=== PATIENT | female | born 1935 | race Caucasian/White ===

== ENCOUNTER 2016-06-15 10:31 | Inpatient (IN) ==
[2016-06-15] MEDS ORDERED: FUROSEMIDE 40 MG/4 ML VIAL IV STA (10:46)
[2016-06-15] MEDS ORDERED: FUROSEMIDE 100 MG/10 ML VIAL ONE (10:47)
[2016-06-15] MEDS ORDERED: ALBUTEROL/IPRATROPIUM 3 ML NEB RESP TX STA (10:47)
--- NOTE | 2016-06-15 10:51 | EKG Report ---
Stationary ECG Study [facility] Test Date: 06/15/2016 10:41:26 AM Pat Name: MINO KRISHNAN Department: Room: Gender: F Computer Technical Support Specialist: : [id number] Requested by: Gerald Burrows Order Number: [id number] Reading MD: FÉLIX BURNS Intervals [place] Rate: 103 P: 87 DE: 182 QRS: -3 QRSD: 86 T: 71 QT: 343 QTc: 403 Interpretive Statements SINUS TACHYCARDIA WITH FREQUENT SUPRAVENTRICULAR PREMATURE COMPLEXES POOR R-WAVE PROGRESSION Electronically Signed On 06-15-16 19:57:17 CDT by FÉLIX BURNS [email or web address]
[2016-06-15 10:57] LABS: Basophils # 0.1 10*3/uL (0.0-0.2); Basophils % 0.3 % (0.0-0.8); Eosinophils # 0.1 10*3/uL (0.0-0.87); Eosinophils % 0.4 % (0.00-10.9); Hematocrit 40.7 VOL% (35.7-47.0); Hemoglobin 13.9 GM/DL (12.0-16.0); Immature Granulocytes % 0.5 %; Immature Granulocytes Absolute 0.08 #; Lymphocytes # 0.8 10*3/uL (1.4-4.0); Mean Corpuscular HGB Conc 34.2 GM/DL (32-36); Mean Corpuscular Hemoglobin 31 PG (27-34); Mean Corpuscular Volume 90.6 FL (87-102); Mean Platelet Volume 8.7 FL (9.6-12.0); Monocytes # 0.8 10*3/uL (0.11-0.8); Monocytes % 5.2 % (1.7-12.7); Neutrophils # 14.2 10*3/uL (1.4-7.4); Neutrophils % 88.6 % (38.7-73.9); Platelet Count 281 T/CUMM (130-400); Red Blood Count 4.49 MC/CUMM (3.8-5.5); Red Cell Distribution Width 12.7 % (9.3-17.3); White Blood Count 16.1 T/CUMM (4-12)
[2016-06-15 11:09] LABS: D-Dimer 0.9 MG/L FEU; INR 1.7; PT Patient Result 18.7 SECS
--- NOTE | 2016-06-15 11:11 | XRay Report ---
Exam: XR chest 1V portable Indication: Shortness of breath Comparison study: None Findings: Cardiac silhouette is mildly enlarged. Mediastinal contours appear within normal limits. Lungs are mildly hyperexpanded with diffuse interstitial prominence suggestive of a degree of underlying interstitial scarring. There is no pneumothorax or significant pleural effusion. There are right bibasilar opacities, which are nonspecific but may represent atelectasis although developing infectious/inflammatory infiltrates cannot be excluded. There is no acute osseous abnormality. Impression: Findings suggestive of underlying COPD changes with mild cardiomegaly. Basilar opacities may represent atelectasis or scarring although developing infectious/inflammatory infiltrates cannot be excluded. PROCEDURE INTERPRETED AT [facility] DEPARTMENT OF RADIOLOGY Final Report Signed by: Tommie Peacock
[2016-06-15 11:33] LABS: Alanine Aminotransferase 20 U/L (13-56); Albumin 3.6 G/DL (3.4-5.0); Alkaline Phosphatase 134 U/L (45-117); Aspartate Amino Transferase 25 U/L (0-37); Blood Urea Nitrogen 27 MG/DL (7-18); Calcium 9.1 MG/DL (8.5-10.1); Glucose 132 MG/DL (74-106); Magnesium 1.8 MG/DL (1.8-2.4); Potassium 4.2 MMOL/L (3.5-5.1); Sodium 136 MMOL/L (136-145); Total Protein 7.6 G/DL (6.4-8.3); Troponin I Only < 0.015 NG/ML (0.00-0.045)
[2016-06-15] MEDS ORDERED: LEVOFLOXACIN INJ 500 MG in PREMIX 1 EACH IV STA (11:33)
--- NOTE | 2016-06-15 11:40 | Emergency Department Note ---
Jacquelyn Montalvo Emily, am scribing for, and in the presence of, Gerald Roman MD 10:51. Abel Montalvo Phillip K, MD, personally performed the services described in this documentation, ascribed by Manda Valladares in my presence, and it is both accurate and complete . Arrival - Arrival Chief Complaint: Shortness of Breath Stated Complaint: respiratory distress, new onset CHF ED Nursing Triage Note: Patient transferred from [facility] with respiratory distress and new onset CHF. Her oxygenation was 60% on EMS arrival on 15liters with use of accessory muscles. She was placed on a Cpap with current oxygenation 93%. She reports waking up at 0600 this morning with shortness of breath, nausea, but without chest pain Mode of Arrival: Stretcher Limitations: Physical Limitation Source: Patient, EMS, RN Notes Reviewed - History of Present Illness HPI Narrative: Pt is a 80 y/o female who was transferred from [facility] for further evaluation of SOB that started acutely at 2am today. Pt has associated sxs of cough and nausea but no chest or abdomen pain. Upon arrival of EMS, pt was at O2 sat of 60 and given nitro en route with improvement to 97 sat. Pt in ED is at 93-94 O2 sat with face mask. Pt has been at [facility] for [address] Bazan in [place], [place], as PCP. Pt is taking Coumadin, Plavix and 80 mg of Lasix. Pt was dx with new onset of CHF at halfway. Onset (ago): hour(s) Consistency: constant Severity: moderate, severe Severity scale (1-10): 9 Quality: fullness Allergies/Adverse Reactions: Allergies Allergy/AdvReac Type Severity Reaction Status Date / Time No Known Allergies Allergy Unverified 06/15/16 10:44 Review of System - Review of System 12 point system: reviewed and no additional remarkable complaints except as stated - Review of System Constitutional: Absent: fever Respiratory: Present: cough, respiratory distress (SOB), wheezing Cardiovascular: Absent: chest pain Gastrointestinal: Absent: abdominal pain, nausea, vomiting Skin: Absent: rash Neurological: Absent: headache Medical,Surgical,& Family Hx - Social History Smoking Status: Never smoker Frequency of Alcohol Use: None Type of Drug Use: None Exam Vital Signs: Vital Signs Temperature 98.1 F 06/15/16 10:33 Pulse Rate 104 H 06/15/16 11:00 Respiratory Rate 19 06/15/16 11:00 Blood Pressure 166/70 06/15/16 11:00 O2 Sat by Pulse Oximetry 87 L 06/15/16 11:00 - General General appearance: alert, in no apparent distress - Head Head exam: Present: atraumatic, normocephalic - Eye Eye exam: Present: PERRL, EOMI - ENT ENT exam: Present: mucous membranes moist. Absent: mucous membranes dry - Neck Neck exam: Present: full ROM. Absent: tenderness - Chest Chest inspection: Present: symmetric chest wall rise. Absent: tenderness - Respiratory Respiratory exam: Present: accessory muscle use, prolonged expiratory phase, respiratory distress, wheezes (expiratory). Absent: normal lung sounds bilaterally - Cardiovascular Cardiovascular exam: Present: tachycardia, normal heart sounds - Abdominal Exam Abdominal exam: Present: soft. Absent: tenderness - Extremities Exam Extremities exam: Present: full ROM, pedal edema (trace bilaterally). Absent: tenderness - Neurological Exam Neurological exam: Present: alert, oriented X3, CN II-XII intact. Absent: motor sensory deficit - Psychiatric Psychiatric exam: Present: normal affect, normal mood - Skin Skin exam: Present: warm, dry, intact Results - Labs CBC & BMP: 06/15/16 10:44 06/15/16 10:44 Lab Results: I have reviewed the patients labs Labs: Laboratory Tests 06/15/16 10:44 WBC 16.1 H MPV 8.7 L Neut % (Auto) 88.6 H Lymph % (Auto) 5.0 L Neut # (Auto) 14.2 H Lymph # (Auto) 0.8 L - EKG EKG results: interpreted by RUFINOD (Sinus tachycardia) - Diagnostic Findings Procedure: Chest x-ray: report reviewed by me (Findings suggestive of underlying COPD changes with mild cardiomegaly. Basilar opacities may represent atelectasis or scarring although developing infectious/inflammatory infiltrates cannot be excluded.) Disposition Clinical Impression: Acute exacerbation of chronic obstructive airways disease, Pneumonia right base Case discussed with: patient Disposition: Still a Patient Condition: Guarded Additional Instructions: Admit to the hospitalist.
[2016-06-15 11:54] LABS: Pt O2 Delivery Device Venturi Mask
[2016-06-15 11:55] LABS: ABG Base Excess 5.4 MMOL/L (-2.5-2.5); ABG Oxygen Saturation 87.8 % (95-100); ABG PCO2 55.2 MM HG (35-48); ABG PH 7.381 (7.35-7.45); ABG PO2 55.7 MM HG (80-95); ABG TCO2 33.7 MMOL/L (23-27)
[2016-06-15] MEDS ORDERED: ALBUTEROL/IPRATROPIUM 3 ML NEB RESP TX PRN (12:26)
[2016-06-15] MEDS ORDERED: ACETAMINOPHEN 325 MG TABLET PO PRN (12:27)
[2016-06-15] MEDS ORDERED: DOCUSATE SODIUM 100 MG CAPSULE PO PRN (12:27)
[2016-06-15] MEDS ORDERED: LEVOFLOXACIN INJ 100 ML IV ONE (12:31)
--- NOTE | 2016-06-15 12:35 | Hospitalist History & Physical ---
<Sherly Sousada - Last Filed: 06/15/16 12:51> Assessment and Plan (1) Acute exacerbation of chronic obstructive airways disease Status: Acute Assessment and plan: We will admit; start inhaled bronchodiators and IV corticosteriods, start empiric antibiotics. Current Visit: Yes (2) Anticoagulant long-term use Status: Acute Assessment and plan: INR today 1.7; will re-check in AM. Current Visit: Yes (3) Pneumonia Status: Acute Assessment and plan: Will start empiric antibiotics and monitor. Current Visit: Yes Qualifiers: Pneumonia type: due to unspecified organism Laterality: right History of Present Illness Chief complaint: shortness of breath History of present illness: This a very pleasant 80 year old female that presented to the ED at [facility] per EMS from [facility] in [place]. The patient has a very extensive medical history of chronic obstructive pulmonary disease, pulmonary embolism, deep vein thrombosis, hypertensive chronic kidney disease stage I, chronic pain syndrome, and dysthymic disorder. At the time of ED presentation, she was noted to be in respiratory distress with oxygen saturations at 60% on non-rebreather mask. She was immediately placed on bi- pap. She reported the acute onset of shortness of breath around 0600 with nausea ; however denies chest pain. Labs were obtained at the time of ED presentation, which showed a marked increase in her WBC's 16.1; all other findings unremarkable. She is a life long anticoagulant user due to her history of thrombus formation; her INR was noted at 1.7. Cardiac enzymes were obtained with a troponin at <0.015 and D-dimer at 0.9. Chest radiograph suggestive of underlying COPD changes with mild cardiomegaly. Basilar opacities may represent atelectasis or scarring although developing infectious/inflammatory infiltrates cannot be excluded. After brief discussion with both Dr. Roman and Dr. Tejeda, the patient will be admitted to the hospitalist services for continuation of care. Home Medications Medication Instructions Recorded Confirmed Type Acetaminophen Tab [Tylenol Tab] 1,000 mg PO Q8HR PRN MDD 3GM/24HRS 06/15/1606/27 History Albuterol/Ipratropium Neb [Duoneb] 3 ml RESP TX RT Q6H PRN 06/15/16 06/15/16 History Baclofen [Baclofen] 10 mg PO BID 06/15/16 06/15/16 History Cholecalciferol (Vitamin D3) 2,000 unit PO 0900 06/15/16 06/15/16 History [Vitamin D3] Clopidogrel [Plavix] 75 mg PO DAILY 06/15/16 06/15/16 History Dimenhydrinate Solution 1 ml IJ Q4H PRN 06/15/16 06/15/16 History Docusate Sodium 100 mg PO BID 06/15/16 06/15/16 History Gabapentin [Gabapentin] 100 mg PO 2100 06/15/16 06/15/16 History Hydrocodone Bitartrate [Zohydro ER] 30 mg PO 0600,1800 06/15/16 06/15/16 History Losartan/Hydrochlorothiazide 1 each PO 0900 06/15/16 06/15/16 History [Losartan-Hctz 100-25 mg Tab] Mirtazapine [Mirtazapine] 15 mg PO QOTHER DAY 06/15/16 06/15/16 History Mirtazapine [Remeron] 30 mg PO QOTHER DAY 06/15/16 06/15/16 History Omeprazole [Prilosec] 20 mg PO DAILY 06/15/16 06/15/16 History Phenol 1.4% Throat [place] 2 - 3 spray PO Q2H PRN 06/15/16 06/15/16 History [Chloraseptic [place]] Polyethylene Glycol Powder 8.5 gm PO 0900 06/15/16 06/15/16 History [Miralax] Polyvinyl Alcohol 1.4% Oph Amber 1 drop BOTH EYES TID 06/15/16 06/15/16 History [Artificial Tears Oph Soln] Potassium Chloride Cap/Tab [K Dur] 20 meq PO DAILY 06/15/16 06/15/16 History Pravastatin [Pravachol] 40 mg PO DAILY 06/15/16 06/15/16 History Tiotropium Inhalation [Spiriva 18 mcg INH DAILY 06/15/16 06/15/16 History Handihaler] Warfarin Sodium [Warfarin Sodium] 3 mg PO 2100 06/15/16 06/15/16 History clonazePAM [Clonazepam] 0.5 mg PO BID 06/15/16 06/15/16 History dilTIAZem HCl [Diltiazem ER] 240 mg PO 0900 06/15/16 06/15/16 History dimenhyDRINATE [Dramamine Chew Tab] 50 mg PO Q4H PRN 06/15/16 06/15/16 History diphenhydrAMINE HCl 50 mg PO Q6H PRN 06/15/16 06/15/16 History [diphenhydrAMINE Cap] guaiFENesin [Cough Syrup] 100 mg PO QID PRN 06/15/16 06/15/16 History Allergies Allergy/AdvReac Type Severity Reaction Status Date / Time No Known Allergies Allergy Unverified 06/15/16 10:44 Medical,Surgical,& Family Hx - Medical History Psychological: History of: Psychiatric Problems (Dysthymic disorder) Respiratory: History of: COPD, Pulmonary Embolism, Pneumonia, Respiratory Problems Musculoskeletal: History of: Musculoskeletal Problems (wheelchair dependent) - Social History Smoking Status: Never smoker Frequency of Alcohol Use: None Type of Drug Use: None Marital Status: Single Lives With:: SNF Functional capacity: wheelchair bound 12 point system: reviewed and no additional remarkable complaints except as stated Exam - Constitutional Vitals: Period Temp Pulse Resp BP Sys/Maya Pulse Ox Last 24 Hr 98.1 F-98.1 F 97-107 18-24 148-166/70-73 40-93 General appearance: normal weight, mild distress - Head Head exam: Present: normal inspection, normocephalic, atraumatic - Eye Eye exam: Present: EOMI. Absent: conjunctival injection, nystagmus Pupils: Present: LISBET, normal accommodation - ENT ENT exam: Present: normal exam, normal external ear exam, normal oropharynx - Neck Neck exam: Present: normal inspection. Absent: lymphadenopathy, meningismus, tenderness, thyromegaly - Respiratory Respiratory exam: Present: accessory muscle use, wheezes - Cardiovascular Cardiovascular exam: Present: irregular rhythm, tachycardia. Absent: diastolic murmur, gallop, JVD, rubs, systolic murmur - GI/Abdominal GI/Abdominal exam: Present: normal bowel sounds, soft. Absent: firm, guarding, tenderness - Extremities Exam Extremities exam: Present: edema (trace edema) - Back Exam Back exam: Present: normal inspection - Neurological Exam Neurological exam: Present: alert, oriented X3 - Psychiatric Psychiatric exam: Present: normal affect, normal mood - Skin Skin exam: Present: normal color, warm, dry Results - Labs CBC & BMP: 06/15/16 10:44 06/15/16 10:44 Lab Results: I have reviewed the past 24 hour labs <Blaise Tejeda - Last Filed: 06/15/16 13:48> Assessment and Plan (1) Pneumonia Status: Acute Assessment and plan: Chest x-rays reviewed. I agree with assessment of pneumonia on this patient. The does appear to be right lower lobe infiltrate and also possibility of a lingular infiltrate given the disappearance of the left cardiac border on the chest x-ray. This patient is has COPD from the community. She also noted to have 4 creatinine of 1.671-[id number] lady. Based antibiotic to cover for gram- positive gram negatives from the community that are complicated COPD. I will put the patient on Zosyn 2.25 g IV every 6 hours azithromycin 500 mg IV daily for the next 4 days. Discontinue Levaquin. Per protocol this patient appears to have been assigned a bed and second is where would not be and therefore this patient to be seen by another provider starting tomorrow. Did ask for this patient be put on either 3 so for yeast but apparently logistics as I was informed did not allow for that. Current Visit: Yes Qualifiers: Pneumonia type: due to unspecified organism Laterality: right History of Present Illness History of present illness: Ms. Hoang is a 80 year old female Exam - Constitutional Vitals: Period Temp Pulse Resp BP Sys/Maya Pulse Ox Last 24 Hr 98.1 F-98.1 F 97-107 18-24 148-166/70-73 40-93 Results - Labs CBC & BMP: 06/15/16 10:44 06/15/16 10:44
[2016-06-15] MEDS: ENOXAPARIN 40 MG/0.4 ML SYRINGE SUBCUT SCH (12:45)
[2016-06-15 13:16] LABS: Risk Ratio 2.44; VLDL CHOLESTEROL 18.2 MG/DL
[2016-06-15 13:58] LABS: Apearance,Urine CLEAR (Clear); Bilirubin,Urine Negative (Negative); Blood, Urine Negative (Negative); Glucose,Urine (UA) Negative (Negative); Ketones,Urine Negative (Negative); Nitrite,Urine Negative (Negative); Protein,Urine Negative; RBC,Urine 1 /HPF (0-4); Urine Color Yellow (Yellow); Urine Specific Gravity 1.016 (1.001-1.035); Urine Urobilinogen < 2.0 EU/DL (0.2-1.0); WBC,Urine 1 /HPF (0-6)
[2016-06-15] MEDS: ALBUTEROL 2.5 MG/3 ML NEB RESP TX SCH ×2 (14:00→19:23)
[2016-06-15] MEDS: LEVOFLOXACIN INJ 750 MG in PREMIX 1 EACH IV SCH (14:47)
[2016-06-15] MEDS: POLYVINYL ALCOHOL 1.4% OPH SOLN 15 ML BOTTLE BOTH EYES SCH (21:51)
[2016-06-15] MEDS: WARFARIN 3 MG TABLET PO SCH (21:51)
[2016-06-15] MEDS: GABAPENTIN 100 MG CAPSULE PO SCH (21:51)
[2016-06-15] MEDS: clonazePAM 0.5 MG TABLET PO SCH (21:51)
[2016-06-16] MEDS: ALBUTEROL 2.5 MG/3 ML NEB RESP TX SCH ×7 (00:21→23:51)
[2016-06-16 06:12] LABS: Basophils % 0.2 % (0.0-0.8); Eosinophils # 0.2 10*3/uL (0.0-0.87); Eosinophils % 1.7 % (0.00-10.9); Hematocrit 35.6 VOL% (35.7-47.0); Hemoglobin 11.8 GM/DL (12.0-16.0); Immature Granulocytes % 0.4 %; Immature Granulocytes Absolute 0.04 #; Lymphocytes # 1.8 10*3/uL (1.4-4.0); Lymphocytes % 19.8 % (21.3-54.2); Mean Corpuscular HGB Conc 33.1 GM/DL (32-36); Mean Corpuscular Hemoglobin 30 PG (27-34); Mean Corpuscular Volume 91.8 FL (87-102); Mean Platelet Volume 8.9 FL (9.6-12.0); Monocytes # 0.9 10*3/uL (0.11-0.8); Monocytes % 9.6 % (1.7-12.7); Neutrophils # 6.1 10*3/uL (1.4-7.4); Neutrophils % 68.3 % (38.7-73.9); Platelet Count 223 T/CUMM (130-400); Red Blood Count 3.88 MC/CUMM (3.8-5.5); Red Cell Distribution Width 12.9 % (9.3-17.3); White Blood Count 8.9 T/CUMM (4-12)
[2016-06-16 07:05] LABS: Albumin 2.8 G/DL (3.4-5.0); Bilirubin,Total 0.9 MG/DL (0.2-1.0); Calcium 8.5 MG/DL (8.5-10.1); Magnesium 1.9 MG/DL (1.8-2.4); Osmolality,Calculated 280.7 MOS/KG (273-304); Potassium 3.5 MMOL/L (3.5-5.1); Thyroid Stimulating Hormone 1.15 uIU/ml (0.358-3.74); Total Protein 6.2 G/DL (6.4-8.3)
[2016-06-16] MEDS: PANTOPRAZOLE 40 MG TABLET PO SCH (09:07)
[2016-06-16] MEDS: clonazePAM 0.5 MG TABLET PO SCH ×2 (09:08→21:17)
[2016-06-16] MEDS: POLYVINYL ALCOHOL 1.4% OPH SOLN 15 ML BOTTLE BOTH EYES SCH ×3 (09:08→21:17)
--- NOTE | 2016-06-16 09:27 | XRay Report ---
Referring Physician: MILO Sousa Exam: XR chest 1V portable Date: June 16, 2016 at 6:10 AM Reason: Shortness of breath Comparison: Chest one view portable June 15, 2016 Findings: The cardiac silhouette is again mildly enlarged, and there is scattered calcified plaque at the thoracic aorta. There are scattered opacities within both lungs, mainly within the lower lung zones. This is concerning for pulmonary edema, atelectasis and likely scarring. However, there could also be pneumonia, particularly within the lower lung zones. No pneumothorax is identified, but there may be minimal left pleural fluid. The osseous structures appear stable. Impression: There has been no significant change. PROCEDURE INTERPRETED AT [facility] DEPARTMENT OF RADIOLOGY Final Report Signed by: Dr. Ayaan Cr
[2016-06-16] MEDS: ENOXAPARIN 40 MG/0.4 ML SYRINGE SUBCUT SCH (11:55)
--- NOTE | 2016-06-16 12:01 | Hospitalist Progress Note ---
Assessment and Plan (1) Pneumonia Status: Acute Assessment and plan: Chest x-rays reviewed. I agree with assessment of pneumonia on this patient. The does appear to be right lower lobe infiltrate and also possibility of a lingular infiltrate given the disappearance of the left cardiac border on the chest x-ray. This patient is has COPD from the community. She also noted to have 4 creatinine of 1.975-zqeg-vba lady. Based antibiotic to cover for gram- positive gram negatives from the community that are complicated COPD. I will put the patient on Zosyn 2.25 g IV every 6 hours azithromycin 500 mg IV daily for the next 4 days. Discontinue Levaquin. Per protocol this patient appears to have been assigned a bed and second is where would not be and therefore this patient to be seen by another provider starting tomorrow. Did ask for this patient be put on either 3 so for yeast but apparently logistics as I was informed did not allow for that. Current Visit: Yes Qualifiers: Pneumonia type: due to unspecified organism Laterality: bilateral Lung location: lower lobe of lung Qualified Code(s): J18.9 - Pneumonia, unspecified organism Hospitalist: Subjective Interval history: Patient has been seen interviewed and examined chart has been reviewed. She is coughing less and less expectoration today. Immediately yesterday with acute exacerbation of COPD most likely lower respiratory bacterial infection. Noted chills at home but no documented fever she has been afebrile here Exam - Constitutional Vitals: Period Temp Pulse Resp BP Sys/Maya Pulse Ox Last 24 Hr 97.4 F-98.5 F 55-103 15-24 112-151/53-73 89-94 General appearance: over weight - Head Head exam: Present: normocephalic, atraumatic - Eye Eye exam: Present: EOMI Pupils: Present: LISBET - ENT ENT exam: Present: normal oropharynx - Neck Neck exam: Present: normal inspection - Respiratory Respiratory exam: Present: clear to auscultation bilaterally - Cardiovascular Cardiovascular exam: Present: regular rate and rhythm - GI/Abdominal GI/Abdominal exam: Present: normal bowel sounds, soft - Extremities Exam Extremities exam: Present: full ROM - Neurological Exam Neurological exam: Present: alert, oriented X3, CN II-XII intact - Psychiatric Psychiatric exam: Present: normal affect, normal mood - Skin Skin exam: Present: normal color, warm, dry Results - Labs CBC & BMP: 06/16/16 05:46 06/16/16 05:46 Lab Results: I have reviewed the past 24 hour labs
[2016-06-16] MEDS: hydroCHLOROthiazide 12.5 MG CAPSULE PO SCH (13:21)
[2016-06-16] MEDS: DILTIAZEM CD 240 MG CAPSULE PO SCH (13:21)
[2016-06-16] MEDS: WARFARIN 3 MG TABLET PO SCH (17:07)
[2016-06-16] MEDS ORDERED: WARFARIN 3 MG TABLET PO SCH (21:00)
[2016-06-16] MEDS: GABAPENTIN 100 MG CAPSULE PO SCH (21:17)
[2016-06-17] MEDS: ONDANSETRON 4 MG/2 ML VIAL IV PRN ×5 (00:36→21:36)
[2016-06-17] MEDS: ALBUTEROL 2.5 MG/3 ML NEB RESP TX SCH ×5 (03:06→19:17)
[2016-06-17] MEDS ORDERED: ONDANSETRON 4 MG/2 ML VIAL IV ONE (08:30)
--- NOTE | 2016-06-17 08:30 | Hospitalist Progress Note ---
Assessment and Plan (1) Pneumonia Status: Acute Assessment and plan: Chest x-rays reviewed. I agree with assessment of pneumonia on this patient. The does appear to be right lower lobe infiltrate and also possibility of a lingular infiltrate given the disappearance of the left cardiac border on the chest x-ray. This patient is has COPD from the community. She also noted to have 4 creatinine of 1.678-zjwk-mzi lady. Based antibiotic to cover for gram- positive gram negatives from the community that are complicated COPD. I will put the patient on Zosyn 2.25 g IV every 6 hours azithromycin 500 mg IV daily for the next 4 days. Discontinue Levaquin. Per protocol this patient appears to have been assigned a bed and second is where would not be and therefore this patient to be seen by another provider starting tomorrow. Did ask for this patient be put on either 3 so for yeast but apparently logistics as I was informed did not allow for that. Current Visit: Yes Qualifiers: Pneumonia type: due to unspecified organism Laterality: bilateral Lung location: lower lobe of lung Qualified Code(s): J18.9 - Pneumonia, unspecified organism (2) Abdominal pain Status: Acute Assessment and plan: Cause is unknown at this point patient has sinus rhythm on EKG. Will check a KUB because of infrequency of bowel sounds possibly this is areas of the head of obstruction of the bowel. Is associated with nausea. Patient reports of vomiting overnight. Give Zofran and extra dose now is 1 given at 530. Current Visit: Yes (3) Nausea Status: Acute Assessment and plan: Use antiemetics as ordered Current Visit: Yes Hospitalist: Subjective Interval history: Patient has been seen interviewed and examined and chart has been reviewed. Is complaining of being sick this morning complaining of nausea and generalized abdominal pain. She has had bowel movement in the last 24 hours normal no diarrhea no documented fever. She is admitted to the hospital with acute exacerbation of COPD possible pneumonia bibasilar patchy infiltrates. History of long-term anticoagulation INR was subtherapeutic on last check will repeat another one today. We will also repeat CBC and BMP and magnesium. Exam - Constitutional Vitals: Period Temp Pulse Resp BP Sys/Maya Pulse Ox Last 24 Hr 97.1 F-98 F 68-103 16-24 147-159/61-73 88-99 General appearance: other (Obesity BMI of 34.3) - Head Head exam: Present: normocephalic, atraumatic - Eye Eye exam: Present: EOMI, other (Anicteric sclera no conjunctival petechia) Pupils: Present: LISBET - ENT ENT exam: Present: normal exam, normal oropharynx - Neck Neck exam: Present: normal inspection - Respiratory Respiratory exam: Present: clear to auscultation bilaterally, other (No wheezing no rales) - Cardiovascular Cardiovascular exam: Present: regular rate and rhythm - GI/Abdominal GI/Abdominal exam: Present: normal bowel sounds, soft, other (Tender to palpation diffusely though bowel sounds present but infrequent) - Psychiatric Psychiatric exam: Present: normal mood, other (Subdued affect) - Skin Skin exam: Present: normal color, warm Results - Labs CBC & BMP: 06/16/16 05:46 06/16/16 05:46 Lab Results: I have reviewed the past 24 hour labs (Today's labs are pending including an INR)
[2016-06-17 08:40] LABS: Basophils % 0.2 % (0.0-0.8); Eosinophils % 0.3 % (0.00-10.9); Hematocrit 38.6 VOL% (35.7-47.0); Hemoglobin 13.5 GM/DL (12.0-16.0); Immature Granulocytes % 0.3 %; Immature Granulocytes Absolute 0.03 #; Lymphocytes # 1.5 10*3/uL (1.4-4.0); Lymphocytes % 16.5 % (21.3-54.2); Mean Corpuscular Hemoglobin 31 PG (27-34); Mean Corpuscular Volume 87.1 FL (87-102); Mean Platelet Volume 8.9 FL (9.6-12.0); Monocytes # 0.6 10*3/uL (0.11-0.8); Monocytes % 6.7 % (1.7-12.7); Neutrophils # 6.7 10*3/uL (1.4-7.4); Platelet Count 273 T/CUMM (130-400); Red Blood Count 4.43 MC/CUMM (3.8-5.5); Red Cell Distribution Width 12.8 % (9.3-17.3); White Blood Count 8.8 T/CUMM (4-12)
[2016-06-17 08:44] LABS: INR 1.6; PT Patient Result 17.2 SECS
[2016-06-17] MEDS: DILTIAZEM CD 240 MG CAPSULE PO SCH (09:00)
[2016-06-17] MEDS: PANTOPRAZOLE 40 MG TABLET PO SCH (09:00)
[2016-06-17] MEDS: LOSARTAN 50 MG TABLET PO SCH (09:00)
[2016-06-17] MEDS: clonazePAM 0.5 MG TABLET PO SCH ×2 (09:00→20:33)
[2016-06-17] MEDS: hydroCHLOROthiazide 12.5 MG CAPSULE PO SCH (09:00)
[2016-06-17] MEDS: POLYVINYL ALCOHOL 1.4% OPH SOLN 15 ML BOTTLE BOTH EYES SCH ×3 (09:01→20:34)
[2016-06-17 11:34] LABS: Calcium 9.3 MG/DL (8.5-10.1); Magnesium 2.1 MG/DL (1.8-2.4)
--- NOTE | 2016-06-17 12:02 | XRay Report ---
Referring Physician: Blaise Tejeda MD Exam: XR KUB Date: June 17, 2016 at 11:07 AM Reason: Distended tender abdomen Comparison: None Findings: The stomach is distended with air, but the remaining bowel is nondistended. There is mild air within the rectum. No free air is identified. The renal shadows are largely obscured. There is multilevel degenerative change at the spine and scattered degenerative change at the pelvis. However, no acute osseous process is seen. Prominent scattered arterial calcification is noted. Impression: There is gaseous distention of the stomach. The remaining bowel is nondistended, and there is mild air within the rectum. This could represent gastric outlet obstruction or gastroparesis. Follow-up would be helpful. PROCEDURE INTERPRETED AT [facility] DEPARTMENT OF RADIOLOGY Final Report Signed by: Dr. Ayaan Cr
[2016-06-17] MEDS: ENOXAPARIN 40 MG/0.4 ML SYRINGE SUBCUT SCH (12:26)
[2016-06-17] MEDS: LEVOFLOXACIN INJ 750 MG in PREMIX 1 EACH IV SCH (15:20)
[2016-06-17] MEDS: WARFARIN 3 MG TABLET PO SCH (17:30)
[2016-06-17] MEDS: GABAPENTIN 100 MG CAPSULE PO SCH (20:33)
[2016-06-18] MEDS: ALBUTEROL 2.5 MG/3 ML NEB RESP TX SCH ×5 (00:18→14:33)
[2016-06-18] MEDS: ONDANSETRON 4 MG/2 ML VIAL IV PRN (01:14)
[2016-06-18] MEDS: traZODone 50 MG TABLET PO PRN (01:14)
[2016-06-18] MEDS: POLYETHYLENE GLYCOL POWDER 17 GM PACK PO SCH (08:19)
[2016-06-18] MEDS: hydroCHLOROthiazide 12.5 MG CAPSULE PO SCH (08:20)
[2016-06-18] MEDS: clonazePAM 0.5 MG TABLET PO SCH ×2 (08:20→20:00)
[2016-06-18] MEDS: PANTOPRAZOLE 40 MG TABLET PO SCH (08:20)
[2016-06-18] MEDS: LOSARTAN 50 MG TABLET PO SCH (08:20)
[2016-06-18] MEDS: DILTIAZEM CD 240 MG CAPSULE PO SCH (08:21)
[2016-06-18] MEDS: ENOXAPARIN 40 MG/0.4 ML SYRINGE SUBCUT SCH (08:23)
[2016-06-18] MEDS: POLYVINYL ALCOHOL 1.4% OPH SOLN 15 ML BOTTLE BOTH EYES SCH ×3 (08:29→22:15)
[2016-06-18] MEDS: PROMETHAZINE INJ 12.5 MG in SODIUM CHLORIDE 0.9% 50 ML IV PRN ×2 (11:54→18:03)
--- NOTE | 2016-06-18 12:01 | Gastrointestinal Consult Note ---
<Maria Elena Shelton - Last Filed: 06/18/16 11:59> Assessment and Plan (1) Nausea Status: Acute Assessment and plan: 06/18-Sudden onset of nausea, intractable vomiting with mid abdominal pain. No coffee ground/hematemesis. KUB shows gaseous distention of stomach, nondistended bowel. Last endoscopy years prior in [place], unable to recall findings. Will continue to monitor and plan tentative EGD when respiratory status improves if symptoms persist. Plan and addendum to follow by DR Lima. Current Visit: Yes History of Present Illness Chief complaint: Nausea, vomiting History of present illness: Ms. Hoang is a 80 year old female who presented to the ER with onset of cough and congestion. Pt is a resident at [facility]. She presented to the ER on 06/15 with cough, congestion and SOB. Pt was found at that time to have leukocytosis with pneumonia and began treatment for this. She is noted to currently be on Coumadin and Plavix, with history of PE and DVT, however Plavix is being held at this time and Lovenox has been initiated. Pt has a history also of COPD, CKD, and chronic pain syndrome. Pt states that a couple of days ago she had an onset of nausea and began on yesterday with episodes of vomiting. She states that she had intractable vomiting throughout the night. No reports of coffee ground or hematemesis with this. She states that she is also having some mid umbilical pain as well as some soreness across her upper abdomen. She denies any known history of peptic ulcer disease in the past. She denies any melena or hematochezia. She states that she had her gallbladder removed 10 years ago and denies history of gallstones. Most of her medical care at that time was done in [place]. She denies NSAID use as well. She denies recent weight loss, fever or chills. States her last endoscopy was done as well in [place] however unable to recall weekend and what the findings were. She continues to complain today of intractable nausea and has Phenergan infusion ordered every 6 hours. KUB shows gaseous distention of the stomach with nondistended bowel with possible representation for gastric outlet obstruction or gastroparesis. She does complain of some dysphagia to solids and pills at times however denies odynophagia. She is unable to recall if she has had esophageal dilation in the past. Patient is not diabetic. She is currently on Levaquin IV and Protonix p.o. has been ordered daily. Home Medications Medication Instructions Recorded Confirmed Type Acetaminophen Tab [Tylenol Tab] 1,000 mg PO Q8HR PRN MDD 3GM/24HRS 06/15/1606/27 History Albuterol/Ipratropium Neb [Duoneb] 3 ml RESP TX RT Q6H PRN 06/15/16 06/15/16 History Baclofen [Baclofen] 10 mg PO BID 06/15/16 06/15/16 History Cholecalciferol (Vitamin D3) 2,000 unit PO 0900 06/15/16 06/15/16 History [Vitamin D3] Clopidogrel [Plavix] 75 mg PO DAILY 06/15/16 06/15/16 History Dimenhydrinate Solution 1 ml IJ Q4H PRN 06/15/16 06/15/16 History Docusate Sodium 100 mg PO BID 06/15/16 06/15/16 History Gabapentin [Gabapentin] 100 mg PO 2100 06/15/16 06/15/16 History Hydrocodone Bitartrate [Zohydro ER] 30 mg PO 0600,1800 06/15/16 06/15/16 History Losartan/Hydrochlorothiazide 1 each PO 0900 06/15/16 06/15/16 History [Losartan-Hctz 100-25 mg Tab] Mirtazapine [Mirtazapine] 15 mg PO QOTHER DAY 06/15/16 06/15/16 History Mirtazapine [Remeron] 30 mg PO QOTHER DAY 06/15/16 06/15/16 History Omeprazole [Prilosec] 20 mg PO DAILY 06/15/16 06/15/16 History Phenol 1.4% Throat [place] 2 - 3 spray PO Q2H PRN 06/15/16 06/15/16 History [Chloraseptic [place]] Polyethylene Glycol Powder 8.5 gm PO 0900 06/15/16 06/15/16 History [Miralax] Polyvinyl Alcohol 1.4% Oph Amber 1 drop BOTH EYES TID 06/15/16 06/15/16 History [Artificial Tears Oph Soln] Potassium Chloride Cap/Tab [K Dur] 20 meq PO DAILY 06/15/16 06/15/16 History Pravastatin [Pravachol] 40 mg PO DAILY 06/15/16 06/15/16 History Tiotropium Inhalation [Spiriva 18 mcg INH DAILY 06/15/16 06/15/16 History Handihaler] Warfarin Sodium [Warfarin Sodium] 3 mg PO 2100 06/15/16 06/15/16 History clonazePAM [Clonazepam] 0.5 mg PO BID 06/15/16 06/15/16 History dilTIAZem HCl [Diltiazem ER] 240 mg PO 0900 06/15/16 06/15/16 History dimenhyDRINATE [Dramamine Chew Tab] 50 mg PO Q4H PRN 06/15/16 06/15/16 History diphenhydrAMINE HCl 50 mg PO Q6H PRN 06/15/16 06/15/16 History [diphenhydrAMINE Cap] guaiFENesin [Cough Syrup] 100 mg PO QID PRN 06/15/16 06/15/16 History Allergies Allergy/AdvReac Type Severity Reaction Status Date / Time No Known Allergies Allergy Unverified 06/15/16 10:44 Medical,Surgical,& Family Hx - Medical History Cardio: History of: Hypertension, [place] Psychological: History of: Psychiatric Problems (Dysthymic disorder) HEENT: History of: Ear Problem (hard of hearing) Respiratory: History of: COPD, Pulmonary Embolism, Pneumonia, Respiratory Problems Renal: History of: Renal Failure Gastrointestinal: History of: Diverticulitis/ Diverticulosis Musculoskeletal: History of: Musculoskeletal Problems (wheelchair dependent) - Social History Smoking Status: Never smoker Frequency of Alcohol Use: None Type of Drug Use: None 12 point system: reviewed and no additional remarkable complaints except as stated - Constitutional Constitutional: Present: as per HPI - EENT Eyes: Present: as per HPI Ears: Present: as per HPI Nose, mouth and throat: Present: as per HPI - Cardiovascular Cardiovascular: Present: as per HPI - Respiratory Respiratory: Present: as per HPI - Gastrointestinal Gastrointestinal: Present: as per HPI, abdominal pain, nausea, vomiting - Genitourinary Genitourinary: Present: as per HPI - Musculoskeletal Musculoskeletal: Present: as per HPI - Neurological Neurological: Present: as per HPI - Psychiatric Psychiatric: Present: as per HPI - Endocrine Endocrine: Present: as per HPI - Hematologic/Lymphatic Hematologic/Lymphatic: Present: as per HPI Exam - Constitutional Vitals: Period Temp Pulse Resp BP Sys/Maya Pulse Ox Last 24 Hr 97.3 F-98.4 F 83-94 18-20 101-177/55-99 89-95 General appearance: normal weight, no acute distress - Head Head exam: Present: normal inspection, normocephalic - Eye Eye exam: Present: other (lids and conjunctiva unremarkable). Absent: scleral icterus - ENT ENT exam: Present: normal exam, normal oropharynx - Neck Neck exam: Present: normal inspection - Respiratory Respiratory exam: Present: clear to auscultation bilaterally. Absent: rales, rhonchi, wheezes - Cardiovascular Cardiovascular exam: Present: regular rate and rhythm. Absent: diastolic murmur , JVD, systolic murmur - GI/Abdominal GI/Abdominal exam: Present: normal bowel sounds, tenderness, soft. Absent: ascites, distended, mass, organomegaly - Extremities Exam Extremities exam: Present: normal inspection, full ROM - Back Exam Back exam: Present: normal inspection - Neurological Exam Neurological exam: Present: alert, oriented X3 - Psychiatric Psychiatric exam: Present: normal affect, normal mood - Skin Skin exam: Present: normal color, warm, dry Results - Labs CBC & BMP: 06/17/16 08:23 06/17/16 08:23 Lab Results: I have reviewed the past 24 hour labs <Harish Lima - Last Filed: 06/18/16 18:20> History of Present Illness Chief complaint: 3030 History of present illness: Ms. Hoang is a 80 year old female Exam - Constitutional Vitals: Period Temp Pulse Resp BP Sys/Maya Pulse Ox Last 24 Hr 96.9 F-98.4 F 75-94 18-22 101-177/43-97 89-95 Results - Labs CBC & BMP: 06/18/16 16:44 06/18/16 16:44
--- NOTE | 2016-06-18 14:25 | Hospitalist Progress Note ---
Assessment and Plan - Time spent with patient Time spent with patient: Greater than 30 minutes (1) Pneumonia Status: Acute Assessment and plan: Continue current management. Current Visit: Yes Qualifiers: Pneumonia type: due to unspecified organism Laterality: bilateral Lung location: lower lobe of lung Qualified Code(s): J18.9 - Pneumonia, unspecified organism (2) Acute exacerbation of chronic obstructive airways disease Status: Acute Assessment and plan: We will initiate IV steroids. Consult pulmonary. Current Visit: Yes (3) Anticoagulant long-term use Status: Acute Assessment and plan: Continue current management. Current Visit: Yes (4) Nausea Status: Acute Assessment and plan: GI consulted for KUB findings. Current Visit: Yes Hospitalist: Subjective Interval history: Patient complains of nausea this morning. No overnight events. Exam - Constitutional Vitals: Period Temp Pulse Resp BP Sys/Maya Pulse Ox Last 24 Hr 97.3 F-98.4 F 83-94 18-20 101-177/55-99 89-95 General appearance: no acute distress, over weight - Head Head exam: Present: normocephalic, atraumatic - Eye Eye exam: Present: EOMI Pupils: Present: LISBET - ENT ENT exam: Present: normal exam - Neck Neck exam: Present: normal inspection - Respiratory Respiratory exam: Present: clear to auscultation bilaterally. Absent: rhonchi, wheezes - Cardiovascular Cardiovascular exam: Present: regular rate and rhythm. Absent: gallop, rubs, systolic murmur - GI/Abdominal GI/Abdominal exam: Present: normal bowel sounds, soft. Absent: distended, firm , guarding, tenderness, rebound - Extremities Exam Extremities exam: Present: normal inspection. Absent: calf tenderness, edema Results - Labs CBC & BMP: 06/17/16 08:23 06/17/16 08:23 Lab Results: I have reviewed the past 24 hour labs
[2016-06-18] MEDS ORDERED: methylPREDNISolone SOD SUC 40 MG/1 ML VIAL IV SCH (15:00)
[2016-06-18 17:18] LABS: Basophils % 0.1 % (0.0-0.8); Hematocrit 39.9 VOL% (35.7-47.0); Hemoglobin 13.4 GM/DL (12.0-16.0); Immature Granulocytes % 0.6 %; Lymphocytes # 0.9 10*3/uL (1.4-4.0); Lymphocytes % 5.3 % (21.3-54.2); Mean Corpuscular HGB Conc 33.6 GM/DL (32-36); Mean Corpuscular Hemoglobin 30 PG (27-34); Mean Corpuscular Volume 89.7 FL (87-102); Mean Platelet Volume 9.4 FL (9.6-12.0); Monocytes # 0.6 10*3/uL (0.11-0.8); Monocytes % 3.9 % (1.7-12.7); Neutrophils # 14.6 10*3/uL (1.4-7.4); Neutrophils % 90.1 % (38.7-73.9); Platelet Count 317 T/CUMM (130-400); Red Blood Count 4.45 MC/CUMM (3.8-5.5); Red Cell Distribution Width 13.1 % (9.3-17.3); White Blood Count 16.2 T/CUMM (4-12)
--- NOTE | 2016-06-18 17:24 | XRay Report ---
Portable chest Date: 06/18/2016 Clinical history: COPD, SOB, hypoxemia Comparison: 06/16/2016 Technique: Portable AP sitting chest Findings: Persistent cardiomegaly with uncoiling of the aorta. Diffuse arterial calcifications. Chronic scarring in the lungs with reduced parenchymal findings at the left lung base. Persistent subsegmental atelectasis in the left midlung zone. More stable atelectasis/infiltration at right lung base. Stable mediastinum with degenerative changes. Old healed fracture of the distal right clavicle. Incidental carotid artery calcifications. Impression: Reduced parenchymal findings at the left lung base with more stable atelectasis/infiltration at the right lung base. PROCEDURE INTERPRETED AT [facility] DEPARTMENT OF RADIOLOGY Final Report Signed by: Dr. Alethea Douglas
[2016-06-18 17:34] LABS: INR 2.3
[2016-06-18 17:46] LABS: Calcium 8.5 MG/DL (8.5-10.1); Magnesium 2.1 MG/DL (1.8-2.4); Osmolality,Calculated 296.4 MOS/KG (273-304); PT Patient Result 25.3 SECS; Potassium 2.9 MMOL/L (3.5-5.1)
[2016-06-18] MEDS: WARFARIN 3 MG TABLET PO SCH (18:03)
[2016-06-18] MEDS ORDERED: ALBUTEROL/IPRATROPIUM 3 ML NEB RESP TX PRN (18:43)
--- NOTE | 2016-06-18 18:50 | Pulmonology Consult Note ---
History of Present Illness Chief complaint: Pneumonia. Possible aspiration. History of present illness: Ms. Hoang is a 80 year old white female whom I been asked see in pulmonary consultation for evaluation and treatment. This patient was transferred here from [facility] in [facility] . She was hypoxic and in respiratory distress. On chest x-ray she had evidence of pneumonia. Within a short period of time this patient developed nausea vomiting. She said that she had not had that prior to transfer here. Today she complains of hoarseness and she says this is from the vomitus that she had last night. She has a cough and she has some sputum production which she cannot characterize. KUB of the abdomen shows gastric dilatation. Patient denies cardiac angina palpitations she denies syncope. She has not had bleeding from any site. At the present time the remainder of her review of systems is negative. Allergies. None Home medicines. See below Hospital medicines. See below Past history. Chronic Coumadin therapy. Hyperlipidemia. COPD. . Chronic kidney disease. Chronic pain syndrome. High blood pressure. Past history of deep venous thrombophlebitis and pulmonary emboli. Hyperlipidemia Social history. Resides in a [facility]. Wheelchair bound. Family history. Not available. Chest x-ray 06/15/2016. Right lower lung infiltrate. Possible early right upper lung infiltrate. Chest x-ray. 06/18/2016. Right lower lung infiltrate improved. Faint background increased interstitial markings in the lower lungs in the mid lung [place] overall I think this chest x-ray slightly improved. Microbiology. No results reported. Lab. Creatinine is increased from 1.60-2.60. Potassium is low at 2.9. INR is increased from 1.7-2.3. White blood cell count is 16,296. H&H 13.4/39.9. Platelets are 317,000. Protein and albumin are low at 6.2 and 2.8 respectively. Admit nitrated peptide was 79. Cardiac enzymes have been negative. Liver function tests are normal. Urine shows no evidence of infection. Labs been reviewed. Medicines have been reviewed. See plan. Physical exam. Vital signs. See below Psychiatric. Oriented 3. Was able to give a fair history. Neurologic. Cranial nerves are intact. Patient moves all 4 extremities. Face. Symmetrical. Lips and tongue appear to be normal. Neck. Symmetrical. No meningismus. Lymphatics. No submandibular cervical supraclavicular or epitrochlear adenopathy. Chest. Mild coarse large airway congestion. Heart. No gallop. Abdomen. Somewhat tympanitic. I did not hear any bowel sounds Lower extremities. Chronic venous stasis changes. Arterial exam. Fair carotid upstroke with no bruits. Upper extremity pulses are palpable lower extremity pulses are nonpalpable no evidence of lower extremity ischemia Venous exam of the neck and upper extremities normal lower extremities show chronic venous stasis changes. Skin of the face and hands showed no cancerous infectious lesions no other areas of skin were examined. The remainder the physical exam was negative. Impression. 1. Acute right lower lung pneumonia probably improving 2. Possible aspiration secondary to nausea and vomiting 3. Possible dilated stomach. Intractable nausea and vomiting 4. Acute on chronic renal failure 5. Chronic anticoagulation. 6. History of chronic pain 7. High blood pressure 8. See past history 9. Hypokalemia Plan. 1. Sputum for Gram stain culture and sensitivity, cold agglutinins, Legionella titer 2. Decrease Levaquin from 750 mg daily to 250 mg daily 3. In the face of acute on chronic renal failure discontinue losartan and hydrochlorothiazide 4. Potassium replacement. IV fluids with D5 normal saline at 75 cc/h 5. Hold Coumadin. INR is 2.3. Continue Lovenox 40 daily but consider stopping it tomorrow morning depending on the INR .daily INR 6. Doppler venograms of the lower extremities 7. Solu-Medrol 40 IV push twice a day to cover for the possibility of aspiration injury. 8. Daily lab and chest x-ray. 9. ABGs are pending 10. See orders Home Medications Medication Instructions Recorded Confirmed Type Acetaminophen Tab [Tylenol Tab] 1,000 mg PO Q8HR PRN MDD 3GM/24HRS 06/15/1606/27 History Albuterol/Ipratropium Neb [Duoneb] 3 ml RESP TX RT Q6H PRN 06/15/16 06/15/16 History Baclofen [Baclofen] 10 mg PO BID 06/15/16 06/15/16 History Cholecalciferol (Vitamin D3) 2,000 unit PO 0900 06/15/16 06/15/16 History [Vitamin D3] Clopidogrel [Plavix] 75 mg PO DAILY 06/15/16 06/15/16 History Dimenhydrinate Solution 1 ml IJ Q4H PRN 06/15/16 06/15/16 History Docusate Sodium 100 mg PO BID 06/15/16 06/15/16 History Gabapentin [Gabapentin] 100 mg PO 2100 06/15/16 06/15/16 History Hydrocodone Bitartrate [Zohydro ER] 30 mg PO 0600,1800 06/15/16 06/15/16 History Losartan/Hydrochlorothiazide 1 each PO 0900 06/15/16 06/15/16 History [Losartan-Hctz 100-25 mg Tab] Mirtazapine [Mirtazapine] 15 mg PO QOTHER DAY 06/15/16 06/15/16 History Mirtazapine [Remeron] 30 mg PO QOTHER DAY 06/15/16 06/15/16 History Omeprazole [Prilosec] 20 mg PO DAILY 06/15/16 06/15/16 History Phenol 1.4% Throat [place] 2 - 3 spray PO Q2H PRN 06/15/16 06/15/16 History [Chloraseptic [place]] Polyethylene Glycol Powder 8.5 gm PO 0900 06/15/16 06/15/16 History [Miralax] Polyvinyl Alcohol 1.4% Oph Amber 1 drop BOTH EYES TID 06/15/16 06/15/16 History [Artificial Tears Oph Soln] Potassium Chloride Cap/Tab [K Dur] 20 meq PO DAILY 06/15/16 06/15/16 History Pravastatin [Pravachol] 40 mg PO DAILY 06/15/16 06/15/16 History Tiotropium Inhalation [Spiriva 18 mcg INH DAILY 06/15/16 06/15/16 History Handihaler] Warfarin Sodium [Warfarin Sodium] 3 mg PO 2100 06/15/16 06/15/16 History clonazePAM [Clonazepam] 0.5 mg PO BID 06/15/16 06/15/16 History dilTIAZem HCl [Diltiazem ER] 240 mg PO 0900 06/15/16 06/15/16 History dimenhyDRINATE [Dramamine Chew Tab] 50 mg PO Q4H PRN 06/15/16 06/15/16 History diphenhydrAMINE HCl 50 mg PO Q6H PRN 06/15/16 06/15/16 History [diphenhydrAMINE Cap] guaiFENesin [Cough Syrup] 100 mg PO QID PRN 06/15/16 06/15/16 History Allergies Allergy/AdvReac Type Severity Reaction Status Date / Time No Known Allergies Allergy Unverified 06/15/16 10:44 Exam (Pulmonay) H&P - Constitutional Vitals: Period Temp Pulse Resp BP Sys/Maya Pulse Ox Last 24 Hr 96.9 F-98.4 F 75-94 18-22 101-177/43-97 89-95 Medical,Surgical,& Family Hx - Medical History Cardio: History of: Hypertension, [place] Psychological: History of: Psychiatric Problems (Dysthymic disorder) HEENT: History of: Ear Problem (hard of hearing) Respiratory: History of: COPD, Pulmonary Embolism, Pneumonia, Respiratory Problems Renal: History of: Renal Failure Gastrointestinal: History of: Diverticulitis/ Diverticulosis Musculoskeletal: History of: Musculoskeletal Problems (wheelchair dependent) - Social History Smoking Status: Never smoker Frequency of Alcohol Use: None Type of Drug Use: None Results - Labs CBC & BMP: 06/18/16 16:44 06/18/16 16:44
[2016-06-18 18:57] LABS: ABG Base Excess 19.5 MMOL/L (-2.5-2.5); ABG HCO3 43.6 MMOL/L (20-26); ABG Oxygen Saturation 86.6 % (95-100); ABG PCO2 58.8 MM HG (35-48); ABG PH 7.509 (7.35-7.45); ABG PO2 51.5 MM HG (80-95); ABG TCO2 40.4 MMOL/L (23-27); Allen Test Positive; Pt O2 Delivery Device Venturi Mask
[2016-06-18] MEDS: ALBUTEROL/IPRATROPIUM 3 ML NEB RESP TX SCH (19:11)
[2016-06-18] MEDS: POTASSIUM CHLORIDE 20 MEQ TABLET PO PRN ×2 (19:55→22:14)
[2016-06-18] MEDS: DEXTROSE 5% NACL 0.9% 1,000 ML IV SCH (19:55)
[2016-06-18] MEDS: methylPREDNISolone SOD SUC 40 MG/1 ML VIAL IV SCH (20:00)
[2016-06-18] MEDS: GABAPENTIN 100 MG CAPSULE PO SCH (20:00)
--- NOTE | 2016-06-18 22:27 | Ultrasound Report ---
Referring physician: Alexandra Adkins MD Exam: Bilateral lower extremity venous ultrasound Date: June 18, 2016 Comparison: None Reason: Lower extremity edema, history of DVT/pulmonary embolism, evaluate for DVT Technique: Duplex scan of the bilateral lower extremity veins was performed using B-Mode/grayscale imaging, compression, Doppler spectral analysis and color flow. Ultrasound images were captured and stored. Findings: There is no evidence of thrombus within the left or right common femoral veins, saphenous veins, superficial femoral veins or popliteal veins. Normal compression and augmentation are present throughout. Normal color flow and spectral analysis are observed. Impression: No evidence of deep venous thrombosis within either lower extremity. PROCEDURE INTERPRETED AT [facility] DEPARTMENT OF RADIOLOGY Final Report Signed by: Dr. Ayaan Cr
[2016-06-19] MEDS: ALBUTEROL/IPRATROPIUM 3 ML NEB RESP TX SCH ×5 (00:03→23:53)
[2016-06-19] MEDS: POTASSIUM CHLORIDE 20 MEQ TABLET PO PRN ×6 (00:12→16:51)
[2016-06-19] MEDS: PROMETHAZINE INJ 12.5 MG in SODIUM CHLORIDE 0.9% 50 ML IV PRN ×4 (00:57→22:43)
[2016-06-19 06:24] LABS: Basophils % 0.1 % (0.0-0.8); Hematocrit 32.4 VOL% (35.7-47.0); Hemoglobin 10.5 GM/DL (12.0-16.0); Immature Granulocytes % 0.9 %; Immature Granulocytes Absolute 0.12 #; Lymphocytes # 0.7 10*3/uL (1.4-4.0); Lymphocytes % 5.2 % (21.3-54.2); Mean Corpuscular HGB Conc 32.4 GM/DL (32-36); Mean Corpuscular Hemoglobin 31 PG (27-34); Mean Corpuscular Volume 94.2 FL (87-102); Mean Platelet Volume 9.4 FL (9.6-12.0); Monocytes # 0.4 10*3/uL (0.11-0.8); Monocytes % 2.6 % (1.7-12.7); Neutrophils # 12.7 10*3/uL (1.4-7.4); Neutrophils % 91.2 % (38.7-73.9); Platelet Count 290 T/CUMM (130-400); Red Blood Count 3.44 MC/CUMM (3.8-5.5); Red Cell Distribution Width 13.4 % (9.3-17.3); White Blood Count 13.9 T/CUMM (4-12)
[2016-06-19 06:38] LABS: INR 3.2
[2016-06-19 06:45] LABS: PT Patient Result 36.9 SECS
[2016-06-19 06:49] LABS: Band Neutrophils 1 % (0-10); Hypochromasia 1+; Lymphocytes 9 % (20-55); Platelet Estimate Adequate; Segmented Neutrophils 89 % (50-85); Target Cells Slight; Total Cells Counted 100
[2016-06-19 06:57] LABS: Calcium 7.7 MG/DL (8.5-10.1); Magnesium 2.1 MG/DL (1.8-2.4); Osmolality,Calculated 318.8 MOS/KG (273-304); Potassium 3.3 MMOL/L (3.5-5.1)
[2016-06-19] MEDS ORDERED: ENOXAPARIN 30 MG/0.3 ML SYRINGE SUBCUT SCH (09:00)
[2016-06-19] MEDS: clonazePAM 0.5 MG TABLET PO SCH ×2 (09:15→20:46)
[2016-06-19] MEDS: PANTOPRAZOLE 40 MG TABLET PO SCH (09:15)
[2016-06-19] MEDS: POLYETHYLENE GLYCOL POWDER 17 GM PACK PO SCH ×2 (09:15→10:47)
[2016-06-19] MEDS: methylPREDNISolone SOD SUC 40 MG/1 ML VIAL IV SCH ×2 (09:30→20:48)
--- NOTE | 2016-06-19 10:08 | XRay Report ---
Portable chest Date: 06/19/2016 Clinical history: Pneumonia Comparison: 06/18/2016 Technique: Portable AP sitting chest Findings: Stable cardiomegaly with diffuse arterial calcifications. Progressive atelectasis/infiltration of the right lung base with more stable findings in the left lower lung zone. The mediastinum and osseous structures are unchanged in appearance. Old healed fracture of the distal right clavicle. Impression: Progressive atelectasis/infiltration at the right lung base with more stable findings in the left lower lung zone. PROCEDURE INTERPRETED AT [facility] DEPARTMENT OF RADIOLOGY Final Report Signed by: Dr. Alethea Douglas
--- NOTE | 2016-06-19 10:21 | Gastrointestinal Progress Note ---
<CatMaria Elena Rebekah - Last Filed: 06/19/16 10:18> Assessment and Plan (1) Nausea Status: Acute Assessment and plan: 06/19-Nausea continues, better controlled at present. Noted to have leukocytosis today, however also on steroid therapy. Afebrile. Plans and addendum to follow by Dr Lima. 06/18-Sudden onset of nausea, intractable vomiting with mid abdominal pain. No coffee ground/hematemesis. KUB shows gaseous distention of stomach, nondistended bowel. Last endoscopy years prior in [place], unable to recall findings. Will continue to monitor and plan tentative EGD when respiratory status improves if symptoms persist. Plan and addendum to follow by DR Lima. Current Visit: Yes Gastroenterology - PN: Subj Interval history: CC: Nausea Pt is seen asleep, awakens briefly to verbal stimuli but sleeps thru most of visit. She is afebrile however noted to have elevation in WBC at 13.9 however she is also on steroid therapy. She is still having some episodes of nausea but is better controlled at this time. Abdomen is soft, nontender. Chest xray today shows progressive atelectasis/infiltration at right lung base. Oxygen saturation average 90%. ROS: Denies SOB or chest pain Exam (Progress Note) - Constitutional Vitals: Period Temp Pulse Resp BP Sys/Maya Pulse Ox Last 24 Hr 96.9 F-97.9 F 57-93 16-22 101-150/43-67 84-94 General appearance: normal weight, no acute distress - Head Head exam: Present: normal inspection, normocephalic - Eye Eye exam: Present: other (lids and conjunctiva unremarkable). Absent: scleral icterus - ENT ENT exam: Present: normal exam, normal oropharynx - Neck Neck exam: Present: normal inspection - Respiratory Respiratory exam: Present: clear to auscultation bilaterally. Absent: rales, rhonchi, wheezes - Cardiovascular Cardiovascular exam: Present: regular rate and rhythm. Absent: diastolic murmur , JVD, systolic murmur - GI/Abdominal GI/Abdominal exam: Present: normal bowel sounds, soft. Absent: ascites, distended, mass, organomegaly, tenderness - Extremities Exam Extremities exam: Present: normal inspection, full ROM - Back Exam Back exam: Present: normal inspection - Neurological Exam Neurological exam: Present: alert, oriented X3 - Psychiatric Psychiatric exam: Present: normal affect, normal mood - Skin Skin exam: Present: normal color, warm, dry Results - Labs CBC & BMP: 06/19/16 05:18 06/19/16 07:19 Lab Results: I have reviewed the past 24 hour labs <Harish Lima - Last Filed: 06/19/16 10:39> Exam (Progress Note) - Constitutional Vitals: Period Temp Pulse Resp BP Sys/Maya Pulse Ox Last 24 Hr 96.9 F-97.9 F 57-93 16-22 101-150/43-67 84-94 Results - Labs CBC & BMP: 06/19/16 05:18 06/19/16 07:19
[2016-06-19] MEDS: POLYVINYL ALCOHOL 1.4% OPH SOLN 15 ML BOTTLE BOTH EYES SCH ×3 (10:46→20:48)
[2016-06-19] MEDS: DILTIAZEM CD 240 MG CAPSULE PO SCH (10:47)
--- NOTE | 2016-06-19 10:56 | Pulmonology Progress Note ---
Pulmonary - PN: Subj Interval history: This 80-year-old white female whom I saw in pulmonary consultation on 06/18/2016. This patient had been transferred here from [facility] in [facility]. She had been short of breath and hypoxemic. My impressions were. 1. Acute right lower lung pneumonia probably improving 2. Possible aspiration secondary to nausea and vomiting 3. Possible dilated stomach. Intractable nausea and vomiting 4. Acute on chronic renal failure 5. Chronic anticoagulation. 6. History of chronic pain 7. High blood pressure 8. See past history 9. Hypokalemia 06/19/2016. Today's x-ray shows cardiomegaly and a resolving right lower lung infiltrate. Patient has increased interstitial markings in both upper lungs and in both bases. There are no positive cultures. Patient says she is breathing better and she is definitely on a lot less distress. White blood cell count was 13,900 with 91 segs. H&H is dropped to 10.5/32.4. Sodium is 144 potassium remains low at 3.0 on replacement protocol. Creatinine which was 1.6 at admission has now gone to 4.20 with a BUN of 9 I have come take in the liberty of consulting renal. D5 normal saline at 75 cc/h was started last night by me. INR is 3.2. I am holding Coumadin. I have continued Lovenox 40 mg once a day but we may need to stop this. Doppler venograms of the lower extremities have shown no evidence of deep venous thrombophlebitis. ABGs 06/18/2016. FiO2 40%. PH 7.51, PCO2 58.8, PO2 51.5. Bicarb 43.6 Physical exam. Vital signs see below General. Patient is lying nearly flat in bed and breathing comfortably. She is in much less distress than she was before. Neurological. Cranial nerves are intact with decreased hearing acuity. There is some movement in all 4 extremities. Face. Symmetrical. Lips and tongue are normal. Neck. Symmetrical. No meningismus. Lymphatics. No submandibular cervical supraclavicular or epitrochlear adenopathy. Chest. Mild tracheal and large airway wheeze. No high-pitched peripheral wheezes. No chest wall tenderness Heart. No gallop Abdomen. Only a very rare bowel sound. Extremities. Chronic venous stasis of the lower extremities with no edema. Skin of the face and hands show no cancerous infectious lesions. No other areas of skin were examined. The remainder the physical exam is negative Plan. 06/18/2016. 1. Sputum for Gram stain culture and sensitivity, cold agglutinins, Legionella titer 2. Decrease Levaquin from 750 mg daily to 250 mg daily 3. In the face of acute on chronic renal failure discontinue losartan and hydrochlorothiazide 4. Potassium replacement. IV fluids with D5 normal saline at 75 cc/h 5. Hold Coumadin. INR is 2.3. Continue Lovenox 40 daily but consider stopping it tomorrow morning depending on the INR .daily INR 6. Doppler venograms of the lower extremities 7. Solu-Medrol 40 IV push twice a day to cover for the possibility of aspiration injury. 8. Daily lab and chest x-ray. 9. ABGs are pending 10. See orders 11. 06/19/2016. Continue present pulmonary treatment. Follow-up chest x-rays and ABGs. Note patient is a CO2 retainer. Daily INR. May have to stop Lovenox. See my note from 06/19/2016 Exam (Progress Note) - Constitutional Vitals: Period Temp Pulse Resp BP Sys/Maya Pulse Ox Last 24 Hr 96.9 F-97.9 F 57-93 16-22 101-150/43-67 84-94 Results - Labs CBC & BMP: 06/19/16 05:18 06/19/16 07:19
[2016-06-19] MEDS: DEXTROSE 5% NACL 0.9% 1,000 ML IV SCH (11:14)
[2016-06-19 11:33] LABS: ABG Base Excess 14.7 MMOL/L (-2.5-2.5); ABG HCO3 40.4 MMOL/L (20-26); ABG Oxygen Saturation 79.2 % (95-100); ABG PH 7.476 (7.35-7.45); ABG PO2 47.2 MM HG (80-95); ABG TCO2 42.1 MMOL/L (23-27)
--- NOTE | 2016-06-19 14:15 | Ultrasound Report ---
Exam: US renal Bilateral Date: 06/19/2016 10:23 AM Comparison: None Indication: Acute renal failure Technique:[Multiple transabdominal real-time scans were obtained of kidneys. Ultrasound images were captured and stored. Color-flow scans obtained.] Findings: Right kidney measures 128 x 57 x 47 mm. Left kidney measures 55 x 36 x 28 mm. Inhomogeneous echogenicity in the left kidney with limited color flow. No mass or hydronephrosis. Impression: Significant cortical loss in the left kidney with inhomogeneous echogenicity which can be seen with medical renal disease. Limited color flow noted. No hydronephrosis or mass. PROCEDURE INTERPRETED AT [facility] DEPARTMENT OF RADIOLOGY Final Report Signed by: Dr. Alethea Douglas
--- NOTE | 2016-06-19 14:22 | Hospitalist Progress Note ---
Assessment and Plan - Time spent with patient Time spent with patient: Greater than 30 minutes (1) PAPO (acute kidney injury) Status: Acute Assessment and plan: Cozaar and HCTZ discontinued (last dose yesterday). Renal US showed medical renal disease. Nephrology consulted. Current Visit: Yes (2) Hypertension Status: Acute Assessment and plan: Stopping diltiazem, cozaar, and HCTZ. Current Visit: Yes (3) Nausea Status: Acute Assessment and plan: GI consulted for KUB findings. Current Visit: Yes (4) Pneumonia Status: Acute Assessment and plan: Continue current management. Current Visit: Yes Qualifiers: Pneumonia type: due to unspecified organism Laterality: bilateral Lung location: lower lobe of lung Qualified Code(s): J18.9 - Pneumonia, unspecified organism (5) Acute exacerbation of chronic obstructive airways disease Status: Acute Assessment and plan: We will initiate IV steroids. Consult pulmonary. Current Visit: Yes (6) Anticoagulant long-term use Status: Acute Assessment and plan: Continue current management. Current Visit: Yes Hospitalist: Subjective Interval history: Patient has complaints of nausea this morning. She has no further complaints. Exam - Constitutional Vitals: Period Temp Pulse Resp BP Sys/Maya Pulse Ox Last 24 Hr 96.9 F-97.9 F 57-93 16-22 104-150/43-67 84-94 General appearance: no acute distress - Head Head exam: Present: normocephalic, atraumatic - Eye Eye exam: Present: EOMI Pupils: Present: LISBET - ENT ENT exam: Present: normal exam - Neck Neck exam: Present: normal inspection - Respiratory Respiratory exam: Present: clear to auscultation bilaterally. Absent: rhonchi, wheezes - Cardiovascular Cardiovascular exam: Present: regular rate and rhythm. Absent: gallop, rubs, systolic murmur - GI/Abdominal GI/Abdominal exam: Present: normal bowel sounds, distended, tenderness, soft. Absent: firm, guarding, rebound - Extremities Exam Extremities exam: Present: normal inspection. Absent: calf tenderness, edema Results - Labs CBC & BMP: 06/19/16 05:18 06/19/16 07:19 Lab Results: I have reviewed the past 24 hour labs
[2016-06-19] MEDS: metroNIDAZOLE INJ 500 MG in PREMIX 1 EACH IV SCH (18:46)
--- NOTE | 2016-06-19 19:01 | Nephrology Consult Note ---
History of Present Illness Chief complaint: Chronic kidney disease History of present illness: Ms. Hoang is a 80 year old female patient with history of HTN presented with a COPD exacerbation. During this hospitalization, the patient's serum creatinine has trended up to 4. There is no history of hypotension. There is no history of NSAID use. The patient initially had a bhatia placed. However, since the bhatia has been discontinued, urine output has been minimal. The renal ultrasound today showed evidence of medical renal disease, with cortical thinning. Nephrology has been consulted for renal issues. Home Medications Medication Instructions Recorded Confirmed Type Acetaminophen Tab [Tylenol Tab] 1,000 mg PO Q8HR PRN MDD 3GM/24HRS 06/15/1606/27 History Albuterol/Ipratropium Neb [Duoneb] 3 ml RESP TX RT Q6H PRN 06/15/16 06/15/16 History Baclofen [Baclofen] 10 mg PO BID 06/15/16 06/15/16 History Cholecalciferol (Vitamin D3) 2,000 unit PO 0900 06/15/16 06/15/16 History [Vitamin D3] Clopidogrel [Plavix] 75 mg PO DAILY 06/15/16 06/15/16 History Dimenhydrinate Solution 1 ml IJ Q4H PRN 06/15/16 06/15/16 History Docusate Sodium 100 mg PO BID 06/15/16 06/15/16 History Gabapentin [Gabapentin] 100 mg PO 2100 06/15/16 06/15/16 History Hydrocodone Bitartrate [Zohydro ER] 30 mg PO 0600,1800 06/15/16 06/15/16 History Losartan/Hydrochlorothiazide 1 each PO 0900 06/15/16 06/15/16 History [Losartan-Hctz 100-25 mg Tab] Mirtazapine [Mirtazapine] 15 mg PO QOTHER DAY 06/15/16 06/15/16 History Mirtazapine [Remeron] 30 mg PO QOTHER DAY 06/15/16 06/15/16 History Omeprazole [Prilosec] 20 mg PO DAILY 06/15/16 06/15/16 History Phenol 1.4% Throat Ramey 2 - 3 spray PO Q2H PRN 06/15/16 06/15/16 History [Chloraseptic Ramey] Polyethylene Glycol Powder 8.5 gm PO 0900 06/15/16 06/15/16 History [Miralax] Polyvinyl Alcohol 1.4% Oph Amber 1 drop BOTH EYES TID 06/15/16 06/15/16 History [Artificial Tears Oph Soln] Potassium Chloride Cap/Tab [K Dur] 20 meq PO DAILY 06/15/16 06/15/16 History Pravastatin [Pravachol] 40 mg PO DAILY 06/15/16 06/15/16 History Tiotropium Inhalation [Spiriva 18 mcg INH DAILY 06/15/16 06/15/16 History Handihaler] Warfarin Sodium [Warfarin Sodium] 3 mg PO 2100 06/15/16 06/15/16 History clonazePAM [Clonazepam] 0.5 mg PO BID 06/15/16 06/15/16 History dilTIAZem HCl [Diltiazem ER] 240 mg PO 0900 06/15/16 06/15/16 History dimenhyDRINATE [Dramamine Chew Tab] 50 mg PO Q4H PRN 06/15/16 06/15/16 History diphenhydrAMINE HCl 50 mg PO Q6H PRN 06/15/16 06/15/16 History [diphenhydrAMINE Cap] guaiFENesin [Cough Syrup] 100 mg PO QID PRN 06/15/16 06/15/16 History Allergies Allergy/AdvReac Type Severity Reaction Status Date / Time No Known Allergies Allergy Unverified 06/15/16 10:44 Medical,Surgical,& Family Hx - Medical History Cardio: History of: Hypertension, MO Psychological: History of: Psychiatric Problems (Dysthymic disorder) HEENT: History of: Ear Problem (hard of hearing) Respiratory: History of: COPD, Pulmonary Embolism, Pneumonia, Respiratory Problems Renal: History of: Renal Failure Gastrointestinal: History of: Diverticulitis/ Diverticulosis Musculoskeletal: History of: Musculoskeletal Problems (wheelchair dependent) - Social History Smoking Status: Never smoker Frequency of Alcohol Use: None Type of Drug Use: None Review of Systems Constitutional: no anorexia, no chills, no fever(s), no malaise Cardiovascular: no chest pain with activity, no claudication Exam - Vital Signs Vital signs: Period Temp Pulse Resp BP Sys/Maya Pulse Ox Last 24 Hr 97.1 F-97.9 F 57-93 16-22 104-150/53-67 84-92 - General Appearance General appearance: well-developed, well-nourished EENT: ATNC Neck: supple Respiratory: clear Cardiology: no edema, regular rate, regular rhythm Gastrointestinal: normoactive bowel sounds, no masses Neurologic: alert and oriented x3, CN 3-12 intact Musculoskeletal: no cyanosis Psychiatric: mood/affect appropriate Results - Labs CBC & BMP: 06/19/16 05:18 06/19/16 07:19 Assessment and Plan (1) Chronic kidney disease (CKD) stage G3a/A1, moderately decreased glomerular filtration rate (GFR) between 45-59 mL/min/1.73 square meter and albuminuria creatinine ratio less than 30 mg/g Status: Chronic Assessment and plan: Avoid nephrotoxic agents Daily BMP Current Visit: Yes (2) Acute exacerbation of chronic obstructive airways disease Status: Acute Current Visit: Yes (3) PAPO (acute kidney injury) Status: Acute Assessment and plan: No nephrotoxic agents Place bhatia Daily BMP Current Visit: Yes
[2016-06-19] MEDS: GABAPENTIN 100 MG CAPSULE PO SCH (20:46)
[2016-06-19] MEDS: VANCOMYCIN 50 MG/ML 60 ML/BOTTLE PO SCH (20:46)
[2016-06-19] MEDS: LEVOFLOXACIN INJ 250 MG in PREMIX 1 EACH IV SCH (20:47)
[2016-06-20] MEDS: POTASSIUM CHLORIDE 20 MEQ TABLET PO PRN ×5 (00:35→19:06)
[2016-06-20] MEDS: DEXTROSE 5% NACL 0.9% 1,000 ML IV SCH ×2 (00:36→13:42)
[2016-06-20] MEDS: metroNIDAZOLE INJ 500 MG in PREMIX 1 EACH IV SCH ×3 (02:08→17:07)
[2016-06-20 03:48] LABS: Allen Test Positive; Pt O2 Delivery Device Venturi Mask
[2016-06-20 03:50] LABS: ABG Base Excess 11.6 MMOL/L (-2.5-2.5); ABG HCO3 35.3 MMOL/L (20-26); ABG Oxygen Saturation 93.4 % (95-100); ABG PCO2 57.3 MM HG (35-48); ABG TCO2 34.7 MMOL/L (23-27)
[2016-06-20 04:37] LABS: Basophils % 0.1 % (0.0-0.8); Hematocrit 27.6 VOL% (35.7-47.0); Hemoglobin 9.4 GM/DL (12.0-16.0); Immature Granulocytes Absolute 0.16 #; Lymphocytes # 0.8 10*3/uL (1.4-4.0); Lymphocytes % 4.9 % (21.3-54.2); Mean Corpuscular HGB Conc 34.1 GM/DL (32-36); Mean Corpuscular Hemoglobin 31 PG (27-34); Mean Platelet Volume 9.5 FL (9.6-12.0); Monocytes # 0.6 10*3/uL (0.11-0.8); Monocytes % 3.4 % (1.7-12.7); Neutrophils # 15.2 10*3/uL (1.4-7.4); Neutrophils % 90.6 % (38.7-73.9); Platelet Count 247 T/CUMM (130-400); Red Cell Distribution Width 13.7 % (9.3-17.3); White Blood Count 16.8 T/CUMM (4-12)
[2016-06-20] MEDS: PROMETHAZINE INJ 12.5 MG in SODIUM CHLORIDE 0.9% 50 ML IV PRN ×2 (04:46→17:07)
[2016-06-20 04:52] LABS: PT Patient Result 67.8 SECS
[2016-06-20 04:53] LABS: INR 5.7
[2016-06-20 05:03] LABS: Hypochromasia 1+; Lymphocytes 7 % (20-55); Ovalocytes Slight; Platelet Estimate Adequate; Segmented Neutrophils 90 % (50-85); Total Cells Counted 100
[2016-06-20 05:10] LABS: Calcium 7.8 MG/DL (8.5-10.1); Magnesium 2.2 MG/DL (1.8-2.4); Potassium 3.2 MMOL/L (3.5-5.1)
[2016-06-20] MEDS: ALBUTEROL/IPRATROPIUM 3 ML NEB RESP TX SCH ×3 (07:38→20:17)
--- NOTE | 2016-06-20 07:39 | XRay Report ---
XR chest 1V portable Indication: Shortness of breath Comparison: Chest x-ray dated June 19, 2016 Technique: Single frontal view of the chest Findings: Continued cardiomegaly. Coarsened bilateral interstitial prominence suspicious for interstitial lung disease. Mild bibasilar atelectasis/consolidation. Small left pleural fluid not excluded. There is a somewhat oval-shaped opacity projecting over the left lung base measuring up to 6 cm of uncertain etiology. This could be artifactual. Consider repeat chest x-ray or CT chest for further evaluation. Osseous and surrounding soft tissue structures appear grossly unchanged. IMPRESSION: As above. PROCEDURE INTERPRETED AT [facility] DEPARTMENT OF RADIOLOGY Final Report Signed by: Dr Hermelindo Acuña
[2016-06-20] MEDS ORDERED: DILTIAZEM CD 120 MG CAPSULE PO SCH (09:00)
[2016-06-20] MEDS ORDERED: CLOPIDOGREL 75 MG TABLET PO SCH (09:00)
[2016-06-20] MEDS: POLYETHYLENE GLYCOL POWDER 17 GM PACK PO SCH (09:15)
[2016-06-20] MEDS: clonazePAM 0.5 MG TABLET PO SCH ×2 (09:18→20:40)
[2016-06-20] MEDS: VANCOMYCIN 50 MG/ML 60 ML/BOTTLE PO SCH ×4 (09:18→20:48)
[2016-06-20] MEDS: PANTOPRAZOLE 40 MG TABLET PO SCH (09:18)
[2016-06-20] MEDS: POLYVINYL ALCOHOL 1.4% OPH SOLN 15 ML BOTTLE BOTH EYES SCH ×4 (09:19→20:42)
[2016-06-20] MEDS: methylPREDNISolone SOD SUC 40 MG/1 ML VIAL IV SCH ×2 (09:19→20:41)
[2016-06-20] MEDS ORDERED: SODIUM CHLORIDE 0.9% 250 ML IV PRN (10:36)
--- NOTE | 2016-06-20 11:06 | Pulmonology Progress Note ---
Pulmonary - PN: Subj Interval history: This 80-year-old white female whom I saw in pulmonary consultation on 06/18/2016. This patient had been transferred here from [facility] in [facility]. She had been short of breath and hypoxemic. My impressions were. 1. Acute right lower lung pneumonia probably improving 2. Possible aspiration secondary to nausea and vomiting 3. Possible dilated stomach. Intractable nausea and vomiting 4. Acute on chronic renal failure 5. Chronic anticoagulation. 6. History of chronic pain 7. High blood pressure 8. See past history 9. Hypokalemia 06/19/2016. Today's x-ray shows cardiomegaly and a resolving right lower lung infiltrate. Patient has increased interstitial markings in both upper lungs and in both bases. There are no positive cultures. Patient says she is breathing better and she is definitely on a lot less distress. White blood cell count was 13,900 with 91 segs. H&H is dropped to 10.5/32.4. Sodium is 144 potassium remains low at 3.0 on replacement protocol. Creatinine which was 1.6 at admission has now gone to 4.20 with a BUN of 9 I have come take in the liberty of consulting renal. D5 normal saline at 75 cc/h was started last night by me. INR is 3.2. I am holding Coumadin. I have continued Lovenox 40 mg once a day but we may need to stop this. Doppler venograms of the lower extremities have shown no evidence of deep venous thrombophlebitis. ABGs 06/18/2016. FiO2 40%. PH 7.51, PCO2 58.8, PO2 51.5. Bicarb 43.6 06/21/2015. Today's x-ray shows resolving right lower lung infiltrate and a resolving residual left lower lung infiltrate patient stools are positive for C. difficile. There are no positive cultures from the sputum's. Patient has stools which were positive for blood. Patient's Lovenox is being held. She has been off of Coumadin for several days. INR is now 5.7 have ordered 2 units of fresh frozen plasma. ABGs on FiO2 of 50% shows a pH 7.43, PCO2 of 57.3, PO2 is 69.0 and a bicarb of 35.3. Potassium is up to 3.2. Creatinine remains elevated 4.5 with a BUN of 141. White blood cell count is elevated at 16,800 with 90.6 segs. H&H is dropped to 9.4/27.6 and platelet count is 247,000. Natruretic peptide is 26. Physical exam. Vital signs see below General. Patient is lying nearly flat in bed and breathing comfortably. She is in much less distress than she was before. Neurological. Cranial nerves are intact with decreased hearing acuity. There is some movement in all 4 extremities. Face. Symmetrical. Lips and tongue are normal. Neck. Symmetrical. No meningismus. Lymphatics. No submandibular cervical supraclavicular or epitrochlear adenopathy. Chest. Mild tracheal and large airway wheeze. No high-pitched peripheral wheezes. No chest wall tenderness Heart. No gallop Abdomen. Only a very rare bowel sound. Extremities. Chronic venous stasis of the lower extremities with no edema. Skin of the face and hands show no cancerous infectious lesions. No other areas of skin were examined. The remainder the physical exam is negative Plan. 06/18/2016. 1. Sputum for Gram stain culture and sensitivity, cold agglutinins, Legionella titer 2. Decrease Levaquin from 750 mg daily to 250 mg daily 3. In the face of acute on chronic renal failure discontinue losartan and hydrochlorothiazide 4. Potassium replacement. IV fluids with D5 normal saline at 75 cc/h 5. Hold Coumadin. INR is 2.3. Continue Lovenox 40 daily but consider stopping it tomorrow morning depending on the INR .daily INR 6. Doppler venograms of the lower extremities 7. Solu-Medrol 40 IV push twice a day to cover for the possibility of aspiration injury. 8. Daily lab and chest x-ray. 9. ABGs are pending 10. See orders 11. 06/19/2016. Continue present pulmonary treatment. Follow-up chest x-rays and ABGs. Note patient is a CO2 retainer. Daily INR. May have to stop Lovenox. See my note from 06/19/2016 11. 06/20/2016. See my note above. Patient is on Flagyl for C. difficile GI infection. She is on additional antibiotics for bibasilar pneumonia. She is a CO2 retainer. She is over anticoagulated fresh frozen plasma has been ordered. There is a drop in her H&H. Renal failure continues to worsen. Exam (Progress Note) - Constitutional Vitals: Period Temp Pulse Resp BP Sys/Maya Pulse Ox Last 24 Hr 97.1 F-97.8 F 69-90 16-23 103-141/48-56 85-95 Results - Labs CBC & BMP: 06/20/16 03:54 06/20/16 03:54
--- NOTE | 2016-06-20 13:17 | Hospitalist Progress Note ---
Assessment and Plan - Time spent with patient Time spent with patient: Greater than 30 minutes (1) PAPO (acute kidney injury) Status: Acute Assessment and plan: Creatinine amy to 4.5 today. Appreciate nephrology's assistance. Current Visit: Yes (2) Hypertension Status: Acute Assessment and plan: Blood pressure is now in the 150s. Continue to hold antihypertensives. Current Visit: Yes (3) Nausea Status: Acute Assessment and plan: GI consulted for KUB findings. Current Visit: Yes (4) Pneumonia Status: Acute Assessment and plan: Continue current management. Current Visit: Yes Qualifiers: Pneumonia type: due to unspecified organism Laterality: bilateral Lung location: lower lobe of lung Qualified Code(s): J18.9 - Pneumonia, unspecified organism (5) Acute exacerbation of chronic obstructive airways disease Status: Acute Assessment and plan: We will initiate IV steroids. Consult pulmonary. Current Visit: Yes (6) Anticoagulant long-term use Status: Acute Assessment and plan: Holding anticoagulation and patient is receiving FFP. Elevated INR is likely secondary to Levaquin. Current Visit: Yes (7) C. difficile colitis Status: Acute Assessment and plan: Oral vancomycin. Current Visit: Yes Hospitalist: Subjective Interval history: Patient states she feels terrible and when asked to clarify further states she feels like she has a non-her stomach. Yesterday C. difficile came back positive and she was started on vancomycin. Exam - Constitutional Vitals: Period Temp Pulse Resp BP Sys/Maya Pulse Ox Last 24 Hr 97.1 F-98.6 F 69-90 16-23 103-158/48-87 85-95 General appearance: no acute distress - Head Head exam: Present: normocephalic, atraumatic - Eye Eye exam: Present: EOMI Pupils: Present: LISBET - ENT ENT exam: Present: normal exam - Neck Neck exam: Present: normal inspection - Respiratory Respiratory exam: Present: other (Coarse crackles at the bases.). Absent: rhonchi, wheezes - Cardiovascular Cardiovascular exam: Present: regular rate and rhythm. Absent: gallop, rubs, systolic murmur - GI/Abdominal GI/Abdominal exam: Present: normal bowel sounds, tenderness, soft. Absent: distended, firm, guarding, rebound - Extremities Exam Extremities exam: Present: normal inspection. Absent: calf tenderness, edema Results - Labs CBC & BMP: 06/20/16 03:54 06/20/16 12:17 Lab Results: I have reviewed the past 24 hour labs
--- NOTE | 2016-06-20 17:53 | Nephrology Progress Note ---
Nephrology - PN: Subj Interval history: The patient is resting no acute changes. She has had good urine output today. Serum creatinine is 4.5 today. Continue with IV fluids. Exam (PN)-Nephrology - Vital Signs Vital signs: Period Temp Pulse Resp BP Sys/Maya Pulse Ox Last 24 Hr 97.1 F-98.6 F 18-88 16-23 103-160/48-87 87-100 - General Appearance General appearance: well-developed, well-nourished EENT: ATNC Neck: supple Respiratory: clear Cardiology: no edema, regular rate, regular rhythm Gastrointestinal: normoactive bowel sounds, no tenderness, no guarding Neurologic: alert and oriented x3, CN 3-12 intact Musculoskeletal: no clubbing Psychiatric: mood/affect appropriate - Lab 06/20/16 03:54 06/20/16 12:17 Most recent lab results ABG pH 7.430 (7.35-7.45) 06/20/16 03:40 ABG pCO2 57.3 MM HG (35-48) H 06/20/16 03:40 ABG pO2 69.0 MM HG (80-95) L 06/20/16 03:40 ABG HCO3 35.3 MMOL/L (20-26) H 06/20/16 03:40 ABG O2 Saturation 93.4 % (95-100) L 06/20/16 03:40 Calcium 7.8 MG/DL (8.5-10.1) L 06/20/16 03:54 Magnesium 2.2 MG/DL (1.8-2.4) 06/20/16 03:54 Assessment and Plan (1) Chronic kidney disease (CKD) stage G3a/A1, moderately decreased glomerular filtration rate (GFR) between 45-59 mL/min/1.73 square meter and albuminuria creatinine ratio less than 30 mg/g Status: Chronic Assessment and plan: Avoid nephrotoxic agents Daily BMP Current Visit: Yes (2) Acute exacerbation of chronic obstructive airways disease Status: Acute Current Visit: Yes (3) PAPO (acute kidney injury) Status: Acute Assessment and plan: No nephrotoxic agents Place bhatia Daily BMP Current Visit: Yes
[2016-06-20] MEDS: LEVOFLOXACIN INJ 250 MG in PREMIX 1 EACH IV SCH (20:40)
[2016-06-20] MEDS: GABAPENTIN 100 MG CAPSULE PO SCH (20:40)
[2016-06-21] MEDS: PROMETHAZINE INJ 12.5 MG in SODIUM CHLORIDE 0.9% 50 ML IV PRN ×3 (00:15→16:08)
[2016-06-21] MEDS: ALBUTEROL/IPRATROPIUM 3 ML NEB RESP TX SCH ×4 (00:48→19:37)
[2016-06-21] MEDS: metroNIDAZOLE INJ 500 MG in PREMIX 1 EACH IV SCH ×3 (01:06→18:10)
[2016-06-21] MEDS: DEXTROSE 5% NACL 0.9% 1,000 ML IV SCH ×2 (07:44→16:08)
[2016-06-21 08:01] LABS: Basophils % 0.1 % (0.0-0.8); Hematocrit 26.4 VOL% (35.7-47.0); Hemoglobin 9.1 GM/DL (12.0-16.0); Immature Granulocytes % 1.5 %; Immature Granulocytes Absolute 0.27 #; Lymphocytes # 1.4 10*3/uL (1.4-4.0); Lymphocytes % 7.3 % (21.3-54.2); Mean Corpuscular HGB Conc 34.5 GM/DL (32-36); Mean Corpuscular Hemoglobin 31 PG (27-34); Mean Corpuscular Volume 89.5 FL (87-102); Mean Platelet Volume 9.4 FL (9.6-12.0); Monocytes # 0.9 10*3/uL (0.11-0.8); Monocytes % 4.8 % (1.7-12.7); Neutrophils % 86.3 % (38.7-73.9); Platelet Count 278 T/CUMM (130-400); Red Blood Count 2.95 MC/CUMM (3.8-5.5); Red Cell Distribution Width 13.6 % (9.3-17.3); White Blood Count 18.5 T/CUMM (4-12)
[2016-06-21 08:14] LABS: INR 4.8
[2016-06-21 08:16] LABS: PT Patient Result 55.7 SECS
[2016-06-21 08:52] LABS: Calcium 8.5 MG/DL (8.5-10.1); Magnesium 2.2 MG/DL (1.8-2.4); Osmolality,Calculated 325.6 MOS/KG (273-304); Potassium 3.3 MMOL/L (3.5-5.1)
[2016-06-21] MEDS: PANTOPRAZOLE 40 MG TABLET PO SCH (09:16)
[2016-06-21] MEDS: clonazePAM 0.5 MG TABLET PO SCH ×2 (09:16→20:58)
[2016-06-21] MEDS: ONDANSETRON 4 MG/2 ML VIAL IV PRN ×2 (09:16→23:54)
[2016-06-21] MEDS: methylPREDNISolone SOD SUC 40 MG/1 ML VIAL IV SCH ×2 (09:16→20:57)
[2016-06-21] MEDS: POLYETHYLENE GLYCOL POWDER 17 GM PACK PO SCH (09:17)
[2016-06-21] MEDS: POLYVINYL ALCOHOL 1.4% OPH SOLN 15 ML BOTTLE BOTH EYES SCH ×3 (09:17→20:58)
[2016-06-21] MEDS: VANCOMYCIN 50 MG/ML 60 ML/BOTTLE PO SCH ×4 (09:17→20:57)
[2016-06-21] MEDS ORDERED: SODIUM CHLORIDE 0.9% 250 ML IV PRN (09:51)
--- NOTE | 2016-06-21 10:02 | Pulmonology Progress Note ---
Pulmonary - PN: Subj Interval history: This 80-year-old white female whom I saw in pulmonary consultation on 06/18/2016. This patient had been transferred here from [facility] in [facility]. She had been short of breath and hypoxemic. My impressions were. 1. Acute right lower lung pneumonia probably improving 2. Possible aspiration secondary to nausea and vomiting 3. Possible dilated stomach. Intractable nausea and vomiting 4. Acute on chronic renal failure 5. Chronic anticoagulation. 6. History of chronic pain 7. High blood pressure 8. See past history 9. Hypokalemia 06/19/2016. Today's x-ray shows cardiomegaly and a resolving right lower lung infiltrate. Patient has increased interstitial markings in both upper lungs and in both bases. There are no positive cultures. Patient says she is breathing better and she is definitely on a lot less distress. White blood cell count was 13,900 with 91 segs. H&H is dropped to 10.5/32.4. Sodium is 144 potassium remains low at 3.0 on replacement protocol. Creatinine which was 1.6 at admission has now gone to 4.20 with a BUN of 9 I have come take in the liberty of consulting renal. D5 normal saline at 75 cc/h was started last night by me. INR is 3.2. I am holding Coumadin. I have continued Lovenox 40 mg once a day but we may need to stop this. Doppler venograms of the lower extremities have shown no evidence of deep venous thrombophlebitis. ABGs 06/18/2016. FiO2 40%. PH 7.51, PCO2 58.8, PO2 51.5. Bicarb 43.6 06/20/2016. Today's x-ray shows resolving right lower lung infiltrate and a resolving residual left lower lung infiltrate patient stools are positive for C. difficile. There are no positive cultures from the sputum's. Patient has stools which were positive for blood. Patient's Lovenox is being held. She has been off of Coumadin for several days. INR is now 5.7 have ordered 2 units of fresh frozen plasma. ABGs on FiO2 of 50% shows a pH 7.43, PCO2 of 57.3, PO2 is 69.0 and a bicarb of 35.3. Potassium is up to 3.2. Creatinine remains elevated 4.5 with a BUN of 141. White blood cell count is elevated at 16,800 with 90.6 segs. H&H is dropped to 9.4/27.6 and platelet count is 247,000. Natruretic peptide is 26. 06/21/2016. Patient's breathing seems much better today. Her diarrhea is nearly resolved. INR is dropped from 5.7-4.8. I am going to transfuse her with 2 units of fresh frozen plasma. Potassium is 3.3. Patient is on a replacement protocol. White count is 18,500 with 86 segs. H&H is 9.1/26.4. Platelets are 278,000. Chest x-ray will be repeated tomorrow. Creatinine has dropped from 4.50-2.20 with a BUN of 102. Physical exam. Vital signs see below General. Patient is lying nearly flat in bed and breathing comfortably. She is in much less distress than she was before. Neurological. Cranial nerves are intact with decreased hearing acuity. There is some movement in all 4 extremities. Face. Symmetrical. Lips and tongue are normal. Neck. Symmetrical. No meningismus. Lymphatics. No submandibular cervical supraclavicular or epitrochlear adenopathy. Chest. Mild tracheal and large airway wheeze have resolved.. No high-pitched peripheral wheezes. No chest wall tenderness Heart. No gallop Abdomen. Only a very rare bowel sound. Extremities. Chronic venous stasis of the lower extremities with no edema. Skin of the face and hands show no cancerous infectious lesions. No other areas of skin were examined. The remainder the physical exam is negative Plan. 06/18/2016. 1. Sputum for Gram stain culture and sensitivity, cold agglutinins, Legionella titer 2. Decrease Levaquin from 750 mg daily to 250 mg daily 3. In the face of acute on chronic renal failure discontinue losartan and hydrochlorothiazide 4. Potassium replacement. IV fluids with D5 normal saline at 75 cc/h 5. Hold Coumadin. INR is 2.3. Continue Lovenox 40 daily but consider stopping it tomorrow morning depending on the INR .daily INR 6. Doppler venograms of the lower extremities 7. Solu-Medrol 40 IV push twice a day to cover for the possibility of aspiration injury. 8. Daily lab and chest x-ray. 9. ABGs are pending 10. See orders 11. 06/19/2016. Continue present pulmonary treatment. Follow-up chest x-rays and ABGs. Note patient is a CO2 retainer. Daily INR. May have to stop Lovenox. See my note from 06/19/2016 11. 06/20/2016. See my note above. Patient is on Flagyl for C. difficile GI infection. She is on additional antibiotics for bibasilar pneumonia. She is a CO2 retainer. She is over anticoagulated fresh frozen plasma has been ordered. There is a drop in her H&H. Renal failure continues to worsen. 12. 06/21/2016. See today's note above. Continue antibiotics. Follow-up chest x-ray tomorrow. Marked improvement and kidney status. Exam (Progress Note) - Constitutional Vitals: Period Temp Pulse Resp BP Sys/Maya Pulse Ox Last 24 Hr 97.4 F-98.6 F 18-89 16-23 144-172/50-87 89-100 Results - Labs CBC & BMP: 06/21/16 07:46 06/21/16 07:46
--- NOTE | 2016-06-21 10:30 | Gastrointestinal Progress Note ---
<Maria Elena Shelton Rebekah - Last Filed: 06/21/16 10:25> Assessment and Plan (1) Nausea Status: Acute Assessment and plan: 06/21-nausea improved without any vomiting. No abdominal pain. Found to have Clostridium difficile and oral vancomycin started. Tolerating small amounts of diet. Plan an addendum to follow by Dr. Lima. 06/19-Nausea continues, better controlled at present. Noted to have leukocytosis today, however also on steroid therapy. Afebrile. Plans and addendum to follow by Dr Lima. 06/18-Sudden onset of nausea, intractable vomiting with mid abdominal pain. No coffee ground/hematemesis. KUB shows gaseous distention of stomach, nondistended bowel. Last endoscopy years prior in [place], unable to recall findings. Will continue to monitor and plan tentative EGD when respiratory status improves if symptoms persist. Plan and addendum to follow by DR Lima. Current Visit: Yes Gastroenterology - PN: Subj Interval history: CC: Nausea Pt is awake and alert, sitting up in bed. She states she is feeling some better today. She was found to have clostridium difficile on her stool studies. She has had Levaquin and Flagyl IV continued and addition of oral Vancomycin. She states she has not had a large amount of diarrhea with only one stool reported overnight. She denies any abdominal pain. She states the nausea is improved as well without any vomiting. She is tolerating small amounts of her diet. Abdomen is soft, nontender. Her breathing is improved slightly. Her Coumadin is currently being held due to noted on yesterday to have an INR elevated at 5.7. She is received 2 units of fresh frozen plasma yesterday and her INR is down to 4.8 today. She will have a repeat chest x-ray tomorrow. ROS: Denies SOB or chest pain Exam (Progress Note) - Constitutional Vitals: Period Temp Pulse Resp BP Sys/Maya Pulse Ox Last 24 Hr 97.4 F-98.6 F 18-89 16-23 144-172/50-87 89-100 General appearance: normal weight, no acute distress - Head Head exam: Present: normal inspection, normocephalic - Eye Eye exam: Present: other (Lids and conjunctive are unremarkable). Absent: scleral icterus - ENT ENT exam: Present: normal exam, normal oropharynx - Neck Neck exam: Present: normal inspection - Respiratory Respiratory exam: Present: clear to auscultation bilaterally. Absent: rales, rhonchi, wheezes - Cardiovascular Cardiovascular exam: Present: regular rate and rhythm. Absent: diastolic murmur , JVD, systolic murmur - GI/Abdominal GI/Abdominal exam: Present: normal bowel sounds, soft. Absent: ascites, distended, mass, organomegaly, tenderness - Extremities Exam Extremities exam: Present: normal inspection, full ROM - Back Exam Back exam: Present: normal inspection - Neurological Exam Neurological exam: Present: alert, oriented X3 - Psychiatric Psychiatric exam: Present: normal affect, normal mood - Skin Skin exam: Present: normal color, warm, dry Results - Labs CBC & BMP: 06/21/16 07:46 06/21/16 07:46 Lab Results: I have reviewed the past 24 hour labs <Harish Lima - Last Filed: 06/21/16 18:29> Exam (Progress Note) - Constitutional Vitals: Period Temp Pulse Resp BP Sys/Maya Pulse Ox Last 24 Hr 97.4 F-98.4 F 77-93 18-21 122-172/45-81 89-100 Results - Labs CBC & BMP: 06/21/16 07:46 06/21/16 07:46
--- NOTE | 2016-06-21 11:45 | Nephrology Progress Note ---
Exam (PN)-Nephrology - Vital Signs Vital signs: Period Temp Pulse Resp BP Sys/Maya Pulse Ox Last 24 Hr 97.4 F-98.6 F 18-89 16-23 144-172/50-87 89-100 - General Appearance General appearance: well-developed, well-nourished EENT: ATNC Neck: supple Respiratory: clear Cardiology: regular rate, regular rhythm Gastrointestinal: normoactive bowel sounds, no tenderness Neurologic: alert and oriented x3 Musculoskeletal: no clubbing - Lab 06/21/16 07:46 06/21/16 07:46 Most recent lab results ABG pH 7.430 (7.35-7.45) 06/20/16 03:40 ABG pCO2 57.3 MM HG (35-48) H 06/20/16 03:40 ABG pO2 69.0 MM HG (80-95) L 06/20/16 03:40 ABG HCO3 35.3 MMOL/L (20-26) H 06/20/16 03:40 ABG O2 Saturation 93.4 % (95-100) L 06/20/16 03:40 Calcium 8.5 MG/DL (8.5-10.1) 06/21/16 07:46 Magnesium 2.2 MG/DL (1.8-2.4) 06/21/16 07:46 Assessment and Plan (1) Chronic kidney disease (CKD) stage G3a/A1, moderately decreased glomerular filtration rate (GFR) between 45-59 mL/min/1.73 square meter and albuminuria creatinine ratio less than 30 mg/g Status: Chronic Assessment and plan: Avoid nephrotoxic agents Daily BMP Current Visit: Yes (2) Acute exacerbation of chronic obstructive airways disease Status: Acute Current Visit: Yes (3) PAPO (acute kidney injury) Status: Acute Assessment and plan: No nephrotoxic agents Place bhatia Daily BMP Current Visit: Yes
[2016-06-21] MEDS: POTASSIUM CHLORIDE 20 MEQ TABLET PO PRN ×3 (12:14→18:12)
--- NOTE | 2016-06-21 15:43 | Hospitalist Progress Note ---
Assessment and Plan - Time spent with patient Time spent with patient: Greater than 30 minutes (1) PAPO (acute kidney injury) Status: Acute Assessment and plan: Improving. Appreciate nephrology's assistance. Current Visit: Yes (2) Hypertension Status: Acute Assessment and plan: Blood pressure is now in the 150s. Continue to hold antihypertensives. Current Visit: Yes (3) Nausea Status: Acute Assessment and plan: GI consulted for KUB findings. Current Visit: Yes (4) Pneumonia Status: Acute Assessment and plan: Continue current management. Current Visit: Yes Qualifiers: Pneumonia type: due to unspecified organism Laterality: bilateral Lung location: lower lobe of lung Qualified Code(s): J18.9 - Pneumonia, unspecified organism (5) Acute exacerbation of chronic obstructive airways disease Status: Acute Assessment and plan: We will initiate IV steroids. Consult pulmonary. Current Visit: Yes (6) Anticoagulant long-term use Status: Acute Assessment and plan: Holding anticoagulation. Current Visit: Yes (7) C. difficile colitis Status: Acute Assessment and plan: Oral vancomycin. Current Visit: Yes Hospitalist: Subjective Interval history: Patient feels a lot better this AM. Breathing better. Exam - Constitutional Vitals: Period Temp Pulse Resp BP Sys/Maya Pulse Ox Last 24 Hr 97.4 F-98.4 F 77-93 16-23 122-172/45-87 89-100 General appearance: no acute distress - Head Head exam: Present: normocephalic, atraumatic - Eye Eye exam: Present: EOMI Pupils: Present: LISBET - ENT ENT exam: Present: normal exam - Neck Neck exam: Present: normal inspection - Respiratory Respiratory exam: Present: other (coarse cracklys bilaterally). Absent: rhonchi , wheezes - Cardiovascular Cardiovascular exam: Present: regular rate and rhythm. Absent: gallop, rubs, systolic murmur - GI/Abdominal GI/Abdominal exam: Present: normal bowel sounds, soft. Absent: distended, firm , guarding, tenderness, rebound - Extremities Exam Extremities exam: Present: normal inspection. Absent: calf tenderness, edema Results - Labs CBC & BMP: 06/21/16 07:46 06/21/16 07:46 Lab Results: I have reviewed the past 24 hour labs
[2016-06-21] MEDS: LEVOFLOXACIN INJ 250 MG in PREMIX 1 EACH IV SCH (20:58)
[2016-06-21] MEDS: DESITIN 4OZ/NYSTATIN 15 GRAM MIXTURE PASTE TOP SCH (20:58)
[2016-06-21] MEDS: GABAPENTIN 100 MG CAPSULE PO SCH (20:58)
[2016-06-21] MEDS: traZODone 50 MG TABLET PO PRN (21:01)
[2016-06-22 00:53] LABS: INR 3.2
[2016-06-22] MEDS: ALBUTEROL/IPRATROPIUM 3 ML NEB RESP TX SCH ×4 (01:56→19:24)
[2016-06-22] MEDS: metroNIDAZOLE INJ 500 MG in PREMIX 1 EACH IV SCH ×3 (02:45→17:07)
[2016-06-22] MEDS: PROMETHAZINE INJ 12.5 MG in SODIUM CHLORIDE 0.9% 50 ML IV PRN (03:05)
[2016-06-22 06:35] LABS: INR 3.8
[2016-06-22 06:37] LABS: PT Patient Result 43.4 SECS
[2016-06-22 06:46] LABS: Calcium 7.5 MG/DL (8.5-10.1); Magnesium 1.9 MG/DL (1.8-2.4); Osmolality,Calculated 327.3 MOS/KG (273-304); Potassium 4.1 MMOL/L (3.5-5.1)
[2016-06-22 08:33] LABS: Immature Granulocytes % 4.5 %; Immature Granulocytes Absolute 0.99 #; Lymphocytes # 2.3 10*3/uL (1.4-4.0); Lymphocytes % 10.6 % (21.3-54.2); Mean Corpuscular HGB Conc 32.9 GM/DL (32-36); Mean Corpuscular Hemoglobin 32 PG (27-34); Mean Corpuscular Volume 97.3 FL (87-102); Monocytes # 0.8 10*3/uL (0.11-0.8); Monocytes % 3.6 % (1.7-12.7); NRBC # 0.08 10*3/uL; Neutrophils # 17.8 10*3/uL (1.4-7.4); Neutrophils % 81.3 % (38.7-73.9); Platelet Count 216 T/CUMM (130-400); Red Cell Distribution Width 14.4 % (9.3-17.3); White Blood Count 21.9 T/CUMM (4-12)
[2016-06-22 08:42] LABS: Hemoglobin 4.8 GM/DL (12.0-16.0)
[2016-06-22 08:43] LABS: Hematocrit 14.6 VOL% (35.7-47.0)
--- NOTE | 2016-06-22 08:58 | Hospitalist Progress Note ---
Assessment and Plan (1) Acute blood loss anemia Status: Acute Assessment and plan: Holding warfarin and plavix (has not received a dose of plavix since hospitalized). Will transfuse 4 units pRBC. Will administer FFP. Transfer to the ICU given the severity of the anemia. Start protonix bolus and drip. Current Visit: Yes (2) PAPO (acute kidney injury) Status: Acute Assessment and plan: Stable. Appreciate nephrology's assistance. Current Visit: Yes (3) Hypertension Status: Acute Assessment and plan: Stable. Continue to hold antihypertensives. Current Visit: Yes (4) Nausea Status: Acute Assessment and plan: GI consulted for KUB findings. Current Visit: Yes (5) Pneumonia Status: Acute Assessment and plan: Continue current management. Current Visit: Yes Qualifiers: Pneumonia type: due to unspecified organism Laterality: bilateral Lung location: lower lobe of lung Qualified Code(s): J18.9 - Pneumonia, unspecified organism (6) Acute exacerbation of chronic obstructive airways disease Status: Acute Assessment and plan: We will initiate IV steroids. Consult pulmonary. Current Visit: Yes (7) Anticoagulant long-term use Status: Acute Assessment and plan: Holding anticoagulation. Current Visit: Yes (8) C. difficile colitis Status: Acute Assessment and plan: Oral vancomycin. IV metronidazole. Current Visit: Yes Hospitalist: Subjective Interval history: Ms Hoang states she feels "fine" this morning. Hg came back at 4.8 confirmed twice. No melena however stools are 3+ positive. Patient is on face mask right now. Exam - Constitutional Vitals: Period Temp Pulse Resp BP Sys/Maya Pulse Ox Last 24 Hr 97 F-98.6 F 81-104 18-22 111-144/45-70 90-99 General appearance: no acute distress, over weight - Head Head exam: Present: normocephalic, atraumatic - Eye Eye exam: Present: EOMI Pupils: Present: LISBET - ENT ENT exam: Present: normal exam - Neck Neck exam: Present: normal inspection - Respiratory Respiratory exam: Present: clear to auscultation bilaterally. Absent: accessory muscle use, prolonged expiratory phase, rhonchi, wheezes - Cardiovascular Cardiovascular exam: Present: regular rate and rhythm. Absent: bradycardia, gallop, rubs, systolic murmur - GI/Abdominal GI/Abdominal exam: Present: normal bowel sounds, soft. Absent: distended, firm , guarding, tenderness, rebound - Extremities Exam Extremities exam: Present: normal inspection. Absent: calf tenderness, edema Results - Labs CBC & BMP: 06/22/16 05:17 06/22/16 05:22 Lab Results: I have reviewed the past 24 hour labs
[2016-06-22] MEDS ORDERED: PANTOPRAZOLE INJ 80 MG in SODIUM CHLORIDE 0.9% 100 ML IV ONE (09:00)
[2016-06-22] MEDS ORDERED: SODIUM CHLORIDE 0.9% 250 ML IV PRN ×2 (09:03→09:13)
[2016-06-22 09:23] LABS: Hypochromasia 1+; Lymphocytes 13 % (20-55); Platelet Estimate Normal; Segmented Neutrophils 85 % (50-85); Total Cells Counted 100
--- NOTE | 2016-06-22 09:34 | Physician Query Form ---
CLICK EDIT DOCUMENT TO SELECT QUERY ANSWER --> OK --> SIGN Yanet Vail RN Clinical [facility] W) [phone] (f) [phone] [email or web address] PROVIDERS: Make your selection(s) from the choices in EACH section by typing an "x" and enter comments in the comment section. Please use your independent medical judgment in providing your response. This request does not imply that any particular answer is desired or expected. CLINICAL INDICATORS: (Providers should not edit this section) Based on documentation of "Acute exacerbation of COPD" "most likely respiratory bacterial infection" Sats in the 's . Placed on Venturi mask at 15L O2. Sats up to 92% If possible, please further clarify the type and acuity of respiratory diagnosis : ACUITY: ( ) Acute ( ) Chronic (x ) Acute on Chronic TYPE: (x ) Respiratory failure with hypoxia ( ) Respiratory failure with hypercapnia ( ) Respiratory Arrest ( ) Postprocedural/postoperative respiratory failure ( ) Respiratory Insufficiency ( ) ARDS (Adult/Acute Respiratory Distress Syndrome) ( ) Other, please specify: ( ) Clinically unable to determine Recognized criteria for respiratory failure PH <7.35 or >7.45 PO2 <60 PCO2 >50 RR >24 O2 Sat <90% on RA or <95% on O2 Use of accessory muscles Unable to speak in full sentences Intubation is not required COMMENTS: Use of terms such as suspected, likely, or probable (associated with a specific diagnosis that is being evaluated, monitored, or treated as if it exists) are acceptable and can be restated in the discharge summary if not ruled out. MTDD
--- NOTE | 2016-06-22 09:41 | XRay Report ---
Portable chest Date: 06/22/2016 Clinical history: Pneumonia Comparison: 06/20/2016 Technique: Portable AP sitting chest Findings: The heart remains minimally enlarged with reduction in the parenchymal findings at the lung bases. Residual small left pleural effusion. Stable mediastinum and osseous structures. Impression: Minimally reduced atelectasis/infiltration at the lung bases with residual small left pleural effusion. Follow-up chest x-ray is recommended document clearing. PROCEDURE INTERPRETED AT [facility] DEPARTMENT OF RADIOLOGY Final Report Signed by: Dr. Alethea Douglas
[2016-06-22] MEDS: PANTOPRAZOLE 40 MG TABLET PO SCH (09:42)
--- NOTE | 2016-06-22 10:37 | Gastrointestinal Progress Note ---
<CatMaria Elena Rebekah - Last Filed: 06/22/16 10:34> Assessment and Plan (1) Nausea Status: Acute Assessment and plan: 06/22-no complaints of nausea, denies abdominal pain. Findings of profound anemia this morning with hemoglobin 4.8, INR 3.8. Reports of melena stools. To be transfused 4 units of packed cells as well as 2 more units of fresh frozen plasma. Plan an addendum to followed by Dr. Lima. 06/21-nausea improved without any vomiting. No abdominal pain. Found to have Clostridium difficile and oral vancomycin started. Tolerating small amounts of diet. Plan an addendum to follow by Dr. Lima. 06/19-Nausea continues, better controlled at present. Noted to have leukocytosis today, however also on steroid therapy. Afebrile. Plans and addendum to follow by Dr Lima. 06/18-Sudden onset of nausea, intractable vomiting with mid abdominal pain. No coffee ground/hematemesis. KUB shows gaseous distention of stomach, nondistended bowel. Last endoscopy years prior in [place], unable to recall findings. Will continue to monitor and plan tentative EGD when respiratory status improves if symptoms persist. Plan and addendum to follow by DR Lima. Current Visit: Yes Gastroenterology - PN: Subj Interval history: CC: Nausea, anemia Patient is seen awake and alert sitting up in bed, following transfer from the floor after findings of profound anemia. Patient was noted this morning to have a decrease in her hemoglobin from 9.1 yesterday to 4.8 this morning which is rechecked twice. INR also noted yesterday to be 3.2 now back up at 3.8. She also had findings of melena stools this morning. Patient denies abdominal pain, nausea or vomiting. BUN/creatinine noted to be elevated as well at 61. She has 4 units of packed red blood cells orders as well as 2 more units of fresh frozen plasma. Abdomen is soft, nontender. ROS: Denies shortness of breath or chest pain Exam (Progress Note) - Constitutional Vitals: Period Temp Pulse Resp BP Sys/Maya Pulse Ox Last 24 Hr 97 F-98.6 F 81-105 18-23 111-144/45-70 90-99 General appearance: normal weight, no acute distress - Head Head exam: Present: normal inspection, normocephalic - Eye Eye exam: Present: other (Ms. addendum unremarkable). Absent: scleral icterus - ENT ENT exam: Present: normal exam, normal oropharynx - Neck Neck exam: Present: normal inspection - Respiratory Respiratory exam: Present: clear to auscultation bilaterally. Absent: rales, rhonchi, wheezes - Cardiovascular Cardiovascular exam: Present: regular rate and rhythm. Absent: diastolic murmur , JVD, systolic murmur - GI/Abdominal GI/Abdominal exam: Present: normal bowel sounds, tenderness, soft. Absent: ascites, distended, mass, organomegaly - Extremities Exam Extremities exam: Present: normal inspection, full ROM - Back Exam Back exam: Present: normal inspection - Neurological Exam Neurological exam: Present: alert, oriented X3 - Psychiatric Psychiatric exam: Present: normal affect, normal mood - Skin Skin exam: Present: normal color, warm, dry Results - Labs CBC & BMP: 06/22/16 05:17 06/22/16 05:22 Lab Results: I have reviewed the past 24 hour labs <Harish Lima - Last Filed: 06/22/16 13:51> Exam (Progress Note) - Constitutional Vitals: Period Temp Pulse Resp BP Sys/Maya Pulse Ox Last 24 Hr 97 F-98.6 F 81-105 18-24 111-144/45-71 91-99 Results - Labs CBC & BMP: 06/22/16 05:17 06/22/16 05:22
[2016-06-22] MEDS: DEXTROSE 5% NACL 0.9% 1,000 ML IV SCH ×2 (10:40→11:09)
[2016-06-22] MEDS: POLYVINYL ALCOHOL 1.4% OPH SOLN 15 ML BOTTLE BOTH EYES SCH ×3 (10:41→21:53)
[2016-06-22] MEDS: POLYETHYLENE GLYCOL POWDER 17 GM PACK PO SCH (10:42)
[2016-06-22] MEDS: DESITIN 4OZ/NYSTATIN 15 GRAM MIXTURE PASTE TOP SCH ×2 (10:42→21:53)
[2016-06-22] MEDS: VANCOMYCIN 50 MG/ML 60 ML/BOTTLE PO SCH ×4 (10:42→21:57)
[2016-06-22] MEDS: clonazePAM 0.5 MG TABLET PO SCH ×2 (10:42→21:53)
[2016-06-22] MEDS: methylPREDNISolone SOD SUC 40 MG/1 ML VIAL IV SCH ×2 (10:57→21:52)
[2016-06-22] MEDS: ONDANSETRON 4 MG/2 ML VIAL IV PRN ×2 (11:29→18:03)
--- NOTE | 2016-06-22 11:33 | Pulmonology Progress Note ---
Pulmonary - PN: Subj Interval history: Cornell Bailey, ANP-BC, GNP-BC, acting as scribe for Dr. Clay Kingsley This 80-year-old white female who we saw in initial pulmonary consultation on 06/18/2016. This patient had been transferred here from [facility] in [place], [place]. She had been short of breath and hypoxemic. At the time of our initial consultation, our impressions were: 1. Acute right lower lung pneumonia probably improving 2. Possible aspiration secondary to nausea and vomiting 3. Possible dilated stomach. Intractable nausea and vomiting 4. Acute on chronic renal failure 5. Chronic anticoagulation. 6. History of chronic pain 7. High blood pressure 8. See past history 9. Hypokalemia 06/19/2016. Today's x-ray shows cardiomegaly and a resolving right lower lung infiltrate. Patient has increased interstitial markings in both upper lungs and in both bases. There are no positive cultures. Patient says she is breathing better and she is definitely on a lot less distress. White blood cell count was 13,900 with 91 segs. H&H is dropped to 10.5/32.4. Sodium is 144 potassium remains low at 3.0 on replacement protocol. Creatinine which was 1.6 at admission has now gone to 4.20 with a BUN of 9 I have come take in the liberty of consulting renal. D5 normal saline at 75 cc/h was started last night by me. INR is 3.2. I am holding Coumadin. I have continued Lovenox 40 mg once a day but we may need to stop this. Doppler venograms of the lower extremities have shown no evidence of deep venous thrombophlebitis. ABGs 06/18/2016. FiO2 40%. PH 7.51, PCO2 58.8, PO2 51.5. Bicarb 43.6 06/20/2016. Today's x-ray shows resolving right lower lung infiltrate and a resolving residual left lower lung infiltrate patient stools are positive for C. difficile. There are no positive cultures from the sputum's. Patient has stools which were positive for blood. Patient's Lovenox is being held. She has been off of Coumadin for several days. INR is now 5.7 have ordered 2 units of fresh frozen plasma. ABGs on FiO2 of 50% shows a pH 7.43, PCO2 of 57.3, PO2 is 69.0 and a bicarb of 35.3. Potassium is up to 3.2. Creatinine remains elevated 4.5 with a BUN of 141. White blood cell count is elevated at 16,800 with 90.6 segs. H&H is dropped to 9.4/27.6 and platelet count is 247,000. Natruretic peptide is 26. 06/21/2016. Patient's breathing seems much better today. Her diarrhea is nearly resolved. INR is dropped from 5.7-4.8. I am going to transfuse her with 2 units of fresh frozen plasma. Potassium is 3.3. Patient is on a replacement protocol. White count is 18,500 with 86 segs. H&H is 9.1/26.4. Platelets are 278,000. Chest x-ray will be repeated tomorrow. Creatinine has dropped from 4.50-2.20 with a BUN of 102. 06/22/2016. The patient has been moved to intensive care this morning secondary to severe anemia with a hematocrit of 14.6. Melena stool noted by floor nurse this morning. She is to be transfused 4 units of packed red blood cells. She is also supposed to get 1 more unit of fresh frozen plasma. Patient has not been on her Plavix. She has already received 4 units of fresh frozen plasma over the past 2 days. INR today is 3.8. Certainly, her respiratory status has been affected secondary to her severe anemia. She is remaining on 50% facemask and is maintaining her oxygen saturations. Her known right lower lung infiltrate is improving slowly. Medications have been reviewed. We made no changes today. Labs have been reviewed. White count is 21,900 with 81.3% segs; H&H 4.8/14.6 with normal indices and top normal red blood cell distribution with; platelet count 216,000; INR 3.8; creatinine stable at 2.20, BUN 136, sodium 141, potassium 4.1, magnesium 1.9 Exam (Progress Note) - Constitutional Vitals: Period Temp Pulse Resp BP Sys/Maya Pulse Ox Last 24 Hr 97 F-98.6 F 81-105 18-24 111-144/45-71 90-99 Exam: Chest is wheeze free; note, mild tracheal enlargement airway wheezes have resolved Heart no gallop Abdomen is nontender and nondistended; bowel sounds are positive 4 Extremities with nothing to suggest acute deep venous thrombophlebitis Psychiatric awake and oriented Neurologic long tract motor function is intact Plan: Agree with transfusion orders of packed red blood cells and fresh frozen plasma. Daily labs and chest x-ray. Continue present pulmonary medications. Dr. Lima is following from a GI standpoint. Dr. David is following from a nephrology standpoint. The attending physician is Dr. Triplett. Results - Labs CBC & BMP: 06/22/16 05:17 06/22/16 05:22
--- NOTE | 2016-06-22 13:33 | Operative Note ---
Date of procedure: 06/22/16 Pre-op diagnosis: GI bleed, no IV access Post-op diagnosis: same Procedure: Indication for procedure: I was consulted to place a central line in this patient with a GI bleed with severe anemia needing blood products. She currently has no IV access and multiple attempts at peripheral IVs have failed. Procedure performed: Placement of right internal jugular triple-lumen catheter for IV access Procedure in detail: After informed consent was obtained, the patient was placed in supine position with some Trendelenburg. The right neck prepped and draped in usual sterile fashion. After procedural pause ultrasound brought after a sterile sleeve covering ultrasound the right neck revealed a patent and compressible right internal jugular vein. Right internal jugular vein was accessed under ultrasound guidance on the first attempt. There was return of nonpulsatile dark red blood. Guidewire inserted without resistance. Ultrasound demonstrated the guidewire coursing through the visualized portion of the right internal jugular vein. Small incision was made around the guidewire and the tract dilated and the catheter placed over the guidewire using Seldinger technique without any resistance. Catheter was secured in place with 3-0 silk suture. All ports withdrew and flushed easily and were locked with saline. Dural dressings applied. Patient tolerated the procedure well. Anesthesia: local Surgeon / Physician: Maxx Galvin Estimated blood loss: other (Less than 10 cc) Specimens: none sent Condition: stable Disposition: PACU Results - Labs CBC & BMP: 06/22/16 05:17 06/22/16 05:22 Discharge Plan - Discharge Medications No Action Acetaminophen Tab [Tylenol Tab] 1,000 mg PO Q8HR PRN MDD 3GM/24HRS PRN Reason: Fever, Headache, Mild Pain Baclofen [Baclofen] 10 mg PO BID clonazePAM [Clonazepam] 0.5 mg PO BID Clopidogrel [Plavix] 75 mg PO DAILY Dimenhydrinate Solution 1 ml IJ Q4H PRN PRN Reason: Nausea/Vomiting dimenhyDRINATE [Dramamine Chew Tab] 50 mg PO Q4H PRN PRN Reason: Nausea/Vomiting Docusate Sodium 100 mg PO BID Gabapentin [Gabapentin] 100 mg PO 2100 guaiFENesin [Cough Syrup] 100 mg PO QID PRN PRN Reason: Cough Losartan/Hydrochlorothiazide [Losartan-Hctz 100-25 mg Tab] 1 each PO 0900 Mirtazapine [Mirtazapine] 15 mg PO QOTHER DAY Omeprazole [Prilosec] 20 mg PO DAILY Polyethylene Glycol Powder [Miralax] 8.5 gm PO 0900 Polyvinyl Alcohol 1.4% Oph Amber [Artificial Tears Oph Soln] 1 drop BOTH EYES TID Pravastatin [Pravachol] 40 mg PO DAILY Tiotropium Inhalation [Spiriva Handihaler] 18 mcg INH DAILY Warfarin Sodium [Warfarin Sodium] 3 mg PO 2100 Albuterol/Ipratropium Neb [Duoneb] 3 ml RESP TX RT Q6H PRN PRN Reason: Shortness Of Breath/Wheezing Phenol 1.4% Throat [place] [Chloraseptic [place]] 2 - 3 spray PO Q2H PRN PRN Reason: Sore Throat Cholecalciferol (Vitamin D3) [Vitamin D3] 2,000 unit PO 0900 dilTIAZem HCl [Diltiazem ER] 240 mg PO 0900 diphenhydrAMINE HCl [diphenhydrAMINE Cap] 50 mg PO Q6H PRN PRN Reason: Pruritis Hydrocodone Bitartrate [Zohydro ER] 30 mg PO 0600,1800 Mirtazapine [Remeron] 30 mg PO QOTHER DAY Potassium Chloride Cap/Tab [K Dur] 20 meq PO DAILY - Follow Up or Referral - Forms/Instructions
[2016-06-22] MEDS ORDERED: PHYTONADIONE 10 MG/1 ML AMP SUBCUT ONE (13:38)
--- NOTE | 2016-06-22 13:52 | XRay Report ---
XR chest 1V portable Indication: Right IJ central line placement. Chest one view: Right IJ central line is present with the tip is deflected laterally, possibly following the right subclavian vein towards the axilla. It is somewhat inferior of the anticipated level of the subclavian vein but if it withdraws blood, is likely intravascular. No pneumothorax shown. Coarsened interstitial markings of the lungs and borderline cardiomegaly are both stable. Impression: Malpositioned central line as described. Findings discussed with Dr. Galvin at 1345 hours. PROCEDURE INTERPRETED AT [facility] DEPARTMENT OF RADIOLOGY Final Report Signed by: Kwabena Espinoza M.D.
--- NOTE | 2016-06-22 13:52 | Event Note ---
Chest x-ray reviewed. I suspect the tip is in the right subclavian vein. There was withdrawal of blood. I can attempt to manipulate this into the superior vena cava but will need to do so under fluoroscopy. I think it is okay to use as long as there is blood return. Once she becomes more stable we can reposition the catheter.
[2016-06-22] MEDS: PANTOPRAZOLE INJ 200 MG in SODIUM CHLORIDE 0.9% 250 ML IV SCH (13:58)
[2016-06-22] MEDS ORDERED: FUROSEMIDE 40 MG/4 ML VIAL IV ONE ×2 (17:37→18:21)
--- NOTE | 2016-06-22 18:21 | Nephrology Progress Note ---
Nephrology - PN: Subj Interval history: Patient was moved to the intensive care unit today due to significant anemia hemoglobin was noted to be 4.8. Patient's last INR was noted to be 3.2. She has been hemodynamically stable. She is in the process of getting 4 units packed red blood cells. Currently has received 2 units packed red blood cells. Family members at the bedside. Urine output has been acceptable statin 40 mg Lasix IV. Serum creatinine is noted to be 2.2 which has been stable. We will give 40 mg of Lasix IV between the third and fourth unit for this patient. Exam (PN)-Nephrology - Vital Signs Vital signs: Period Temp Pulse Resp BP Sys/Maya Pulse Ox Last 24 Hr 97 F-98.6 F 81-105 13-24 111-151/44-71 91-99 - General Appearance General appearance: well-developed, well-nourished EENT: ATNC Neck: supple Respiratory: clear Cardiology: regular rate, regular rhythm Gastrointestinal: no tenderness Neurologic: no focal deficit Musculoskeletal: no clubbing - Lab 06/22/16 05:17 06/22/16 05:22 Most recent lab results ABG pH 7.430 (7.35-7.45) 06/20/16 03:40 ABG pCO2 57.3 MM HG (35-48) H 06/20/16 03:40 ABG pO2 69.0 MM HG (80-95) L 06/20/16 03:40 ABG HCO3 35.3 MMOL/L (20-26) H 06/20/16 03:40 ABG O2 Saturation 93.4 % (95-100) L 06/20/16 03:40 Calcium 7.5 MG/DL (8.5-10.1) L 06/22/16 05:22 Magnesium 1.9 MG/DL (1.8-2.4) 06/22/16 05:22 Assessment and Plan (1) Chronic kidney disease (CKD) stage G3a/A1, moderately decreased glomerular filtration rate (GFR) between 45-59 mL/min/1.73 square meter and albuminuria creatinine ratio less than 30 mg/g Status: Chronic Assessment and plan: Avoid nephrotoxic agents Daily BMP Renal function has been stable. Good urine output. Current Visit: Yes (2) Acute exacerbation of chronic obstructive airways disease Status: Acute Current Visit: Yes (3) PAPO (acute kidney injury) Status: Acute Assessment and plan: No nephrotoxic agents Daily BMP Current Visit: Yes
[2016-06-22] MEDS: GABAPENTIN 100 MG CAPSULE PO SCH (21:51)
[2016-06-22] MEDS: LEVOFLOXACIN INJ 250 MG in PREMIX 1 EACH IV SCH (21:53)
[2016-06-23] MEDS: metroNIDAZOLE INJ 500 MG in PREMIX 1 EACH IV SCH ×3 (01:58→17:43)
[2016-06-23] MEDS: ALBUTEROL/IPRATROPIUM 3 ML NEB RESP TX SCH ×4 (02:20→19:34)
[2016-06-23 05:48] LABS: Basophils % 0.2 % (0.0-0.8); Hematocrit 30.1 VOL% (35.7-47.0); Hemoglobin 10.7 GM/DL (12.0-16.0); Immature Granulocytes % 6.8 %; Immature Granulocytes Absolute 1.23 #; Lymphocytes # 1.8 10*3/uL (1.4-4.0); Lymphocytes % 10.1 % (21.3-54.2); Mean Corpuscular HGB Conc 35.5 GM/DL (32-36); Mean Corpuscular Hemoglobin 31 PG (27-34); Mean Corpuscular Volume 85.8 FL (87-102); Mean Platelet Volume 9.7 FL (9.6-12.0); Monocytes # 0.9 10*3/uL (0.11-0.8); Monocytes % 5.2 % (1.7-12.7); NRBC # 0.09 10*3/uL; Neutrophils # 14.2 10*3/uL (1.4-7.4); Neutrophils % 77.7 % (38.7-73.9); Platelet Count 181 T/CUMM (130-400); Red Blood Count 3.51 MC/CUMM (3.8-5.5); Red Cell Distribution Width 14.4 % (9.3-17.3); White Blood Count 18.2 T/CUMM (4-12)
[2016-06-23 06:00] LABS: INR 1.9; PT Patient Result 21.5 SECS
[2016-06-23 06:10] LABS: Magnesium 1.8 MG/DL (1.8-2.4); Osmolality,Calculated 332.1 MOS/KG (273-304); Potassium 3.7 MMOL/L (3.5-5.1)
[2016-06-23] MEDS: DEXTROSE 5% NACL 0.9% 1,000 ML IV SCH ×3 (06:42→23:02)
[2016-06-23 07:57] LABS: Band Neutrophils 1 % (0-10); Hypochromasia Slight; Lymphocytes 9 % (20-55); Microcytosis Slight; Platelet Estimate Adequate; Segmented Neutrophils 85 % (50-85); Total Cells Counted 100
[2016-06-23] MEDS: POLYETHYLENE GLYCOL POWDER 17 GM PACK PO SCH (08:32)
[2016-06-23] MEDS: clonazePAM 0.5 MG TABLET PO SCH (08:32)
[2016-06-23] MEDS: DESITIN 4OZ/NYSTATIN 15 GRAM MIXTURE PASTE TOP SCH ×2 (08:32→20:26)
[2016-06-23] MEDS: methylPREDNISolone SOD SUC 40 MG/1 ML VIAL IV SCH (08:32)
[2016-06-23] MEDS: POLYVINYL ALCOHOL 1.4% OPH SOLN 15 ML BOTTLE BOTH EYES SCH ×3 (08:32→20:26)
[2016-06-23] MEDS: VANCOMYCIN 50 MG/ML 60 ML/BOTTLE PO SCH ×2 (08:33→13:26)
--- NOTE | 2016-06-23 08:54 | XRay Report ---
XR chest 1V portable Indication: Pneumonia Comparison: 22 Jun 2016 Findings: The heart and mediastinum are normal in size and configuration. The pulmonary vascularity is similar in caliber. There is slight increased right lower lung density. No other lung infiltrates, effusions, pneumothorax or other abnormality is demonstrated. Impression: Slight increase in right lower lung density, can indicate infiltrate or atelectasis. PROCEDURE INTERPRETED AT [facility] DEPARTMENT OF RADIOLOGY Final Report Signed by: Dr. Jf Angulo
--- NOTE | 2016-06-23 08:59 | Gastrointestinal Progress Note ---
Assessment and Plan - Time spent with patient Time spent with patient: Greater than 30 minutes (1) Nausea Status: Acute Current Visit: Yes (2) Acute blood loss anemia Status: Acute Current Visit: Yes (3) C. difficile colitis Status: Acute Current Visit: Yes (4) Other specified counseling Status: Acute Current Visit: Yes Exam (Progress Note) - Constitutional Vitals: Period Temp Pulse Resp BP Sys/Maya Pulse Ox Last 24 Hr 97 F-97.9 F 73-105 13-50 111-159/44-84 91-100 Results - Labs CBC & BMP: 06/23/16 05:03 06/23/16 05:03 Note Addendum: PLEASE NOTE -- automatic citation of patient information is unavoidable in this electronic note. I have made a reasonable effort to review the information cited , but it is not a part of my evaluation, impression, or recommendation unless specifically discussed in the dictated text that follows. As well, voice recognition software was used in the creation of this clinical note. Reasonable effort was made to identify and correct gross errors. Despite proofreading, errors in sensitometrist may be present, including nonsense verbiage at times. If you encounter such an error, please contact me at for discussion and correction. -- Berna Chief complaint: nausea Subjective: the patient is an 80-year-old female seen for follow-up of persistent nausea as well as symptomatic anemia. She was transferred to the intensive care yesterday when morning labs revealed severe anemia with hemoglobin less than 5 g/dL. The patient has been having dark stool but this has improved. She was transfused four units of packed red blood cells as well as fresh frozen plasma as she was on both anticoagulant and antiplatelet agents. Three bowel movements have been noted overnight and one this morning, dark and loose. The patient had a positive Clostridium difficile assay on June 19 and has been treated with Flagyl and vancomycin. Endoscopy has not been undertaken due to the patient's tenuous respiratory status and continued elevation of INR. The patient reports feeling a little better this morning but continues with abdominal tenderness. Medications: Tylenol, Duoneb, Klonopin, Colace, Neurontin, Levaquin, Solu-Medrol , Flagyl, Zofran, Protonix, MiraLAX, potassium chloride, Phenergen, trazodone, vancomycin, sodium chloride infusion Review of Symptoms: 12 point review of symptoms was negative except as noted above Physical examination: Vital Signs: Current vital signs reviewed. General Appearance: lying in bed. Comfortable. Facemask in place. No acute distress. Head: Normocephalic. Eyes: no scleral icterus. No scleral injection. No conjunctival pallor. Oral Cavity: Odor of breath was normal. No drooling was observed. Lips showed no abnormalities. Lungs: Respiration rhythm and depth was normal. Cardiovascular: Heart rate and rhythm were normal. Abdomen: abdomen was not distended. Abdominal auscultation revealed no abnormalities. Ascites was not discovered. Abdominal palpation revealed mild tenderness diffusely but no guarding. Musculoskeletal System: musculoskeletal system was grossly normal. Neurological: level of consciousness was normal. Speech was normal. No coordination/cerebellum abnormalities were noted. Skin: Gen. appearance was normal. Color and pigmentation were normal. No skin lesions were appreciated. Laboratory: white blood count 18.2, hemoglobin 4.8 --> 10.7, hematocrit 14.6 -- > 30.1, platelets 181, INR 4.8 --> 1.9, PT 55.7 --> 21.5 Radiology: Chest x-ray, June 23, 2016 -- slight increase in right lower lung density, can indicate infiltrate or atelectasis Impressions: 1. Nausea -- the patient reports continued nausea and is currently treated with anti-emetic with good result. I recommend continuing same for now. The patient will need upper endoscopy with timing based on clinical progress. 2. Symptomatic anemia -- blood counts have responded to transfusion. The patient continues with melanic stool implying upper gastrointestinal source of blood loss. This may be exacerbated by coagulopathy and I recommend continued efforts to reverse same. The patient will need both upper and lower endoscopy with timing based on clinical progress. We will tentatively work toward Saturday or Saturday for the upper endoscopy. 3. C.diff colitis -- continue vancomycin and flagyl. 4. Other specified counseling -- Patient seen for greater than 30 minutes. Greater than 50% of this time was spent counseling regarding differential diagnosis, likely diagnosis,, diagnostic and therapeutic options, risks, benefits, and alternatives to procedures and medications, informed consent, and plan of care generally. Patient has expressed understanding and wishes to proceed. Recommendations: -- continue volume management -- agree with reversing coagulopathy -- agree with holding anticoagulant/antiplatelet medications -- continue proton pump inhibitor -- monitor blood counts with transfusion as indicated -- continue vancomycin and flagyl -- upper endoscopy and colonoscopy with timing based on clinical progress -- we will continue to follow with you
--- NOTE | 2016-06-23 10:23 | Nephrology Progress Note ---
Nephrology - PN: Subj Interval history: The patient is sitting up in bed. No acute changes. Serum creatinine is stable at 2.3. Good urine output. Exam (PN)-Nephrology - Vital Signs Vital signs: Period Temp Pulse Resp BP Sys/Maya Pulse Ox Last 24 Hr 97 F-98.0 F 73-104 13-50 111-159/44-84 91-100 - General Appearance General appearance: well-developed, well-nourished, frail EENT: ATNC Neck: supple Respiratory: clear Cardiology: regular rate, regular rhythm Gastrointestinal: no tenderness, no guarding Musculoskeletal: no deformities, no erythema - Lab 06/23/16 05:03 06/23/16 05:03 Most recent lab results ABG pH 7.430 (7.35-7.45) 06/20/16 03:40 ABG pCO2 57.3 MM HG (35-48) H 06/20/16 03:40 ABG pO2 69.0 MM HG (80-95) L 06/20/16 03:40 ABG HCO3 35.3 MMOL/L (20-26) H 06/20/16 03:40 ABG O2 Saturation 93.4 % (95-100) L 06/20/16 03:40 Calcium 8.0 MG/DL (8.5-10.1) L 06/23/16 05:03 Magnesium 1.8 MG/DL (1.8-2.4) 06/23/16 05:03 Assessment and Plan (1) Chronic kidney disease (CKD) stage G3a/A1, moderately decreased glomerular filtration rate (GFR) between 45-59 mL/min/1.73 square meter and albuminuria creatinine ratio less than 30 mg/g Status: Chronic Assessment and plan: Avoid nephrotoxic agents Daily BMP Renal function has been stable. Good urine output. Current Visit: Yes (2) Acute exacerbation of chronic obstructive airways disease Status: Acute Current Visit: Yes (3) PAPO (acute kidney injury) Status: Acute Assessment and plan: No nephrotoxic agents Daily BMP Current Visit: Yes
--- NOTE | 2016-06-23 11:13 | Hospitalist Progress Note ---
Assessment and Plan (1) Pneumonia Status: Acute Assessment and plan: As of now this is bilateral lower lung pneumonia with unspecified organism to date. Discussed is currently on levofloxacin IV with the oral vancomycin and oral metronidazole. Will need to verify very detailed continue levofloxacin at this point. This is more so because quinolone stent to select for very purulent C. difficile strains. Repeat a chest x-ray done today does not show any improvement or looks worse than at the beginning. She maintains a leukocytosis (albeit use of systemic steroids) I would order CT chest without contrast. Current Visit: Yes Qualifiers: Pneumonia type: due to unspecified organism Laterality: bilateral Lung location: lower lobe of lung Qualified Code(s): J18.9 - Pneumonia, unspecified organism (2) GI bleed Status: Acute Assessment and plan: This is upper GI bleed. Gastroenterology is on the case. Current Visit: Yes Qualifiers: GI bleed type/associated pathology: unspecified peptic ulcer Qualified Code (s): K27.4 - Chronic or unspecified peptic ulcer, site unspecified, with hemorrhage (3) C. difficile colitis Status: Acute Assessment and plan: Continue oral metronidazole and oral vancomycin. I recommend discontinuing the levofloxacin should be de-escalating steroid use unless it is imperative that we will continue using it. Switch her to Medrol Dosepak and budesonide. Current Visit: Yes Hospitalist: Subjective Interval history: Patient has been seen interviewed and examined. She is looking quite weak but able to answer questions. Reportedly the patient was transferred to the intensive care unit yesterday after discovering that she had dropped her hematocrit to about 10. She was transfused overnight to hematocrit above 30. History of upper GI bleeding. Tremendous elevation of BUN to 140 mg percent; most likely secondary to upper GI bleed. She is also in the hospital for pneumonia subsequent developed C. difficile colitis which is being treated. His acute kidney injury. She has a history of anticoagulant to use long-term most likely that contributed to her bleeding. She is also here with a due to exacerbation of COPD descending pneumonia. Exam - Constitutional Vitals: Period Temp Pulse Resp BP Sys/Maya Pulse Ox Last 24 Hr 97 F-98.0 F 73-104 13-50 115-159/44-84 91-100 General appearance: over weight - Head Head exam: Present: normocephalic, atraumatic - Eye Eye exam: Present: EOMI Pupils: Present: LISBET - ENT ENT exam: Present: normal exam - Neck Neck exam: Present: normal inspection - Respiratory Respiratory exam: Present: clear to auscultation bilaterally - Cardiovascular Cardiovascular exam: Present: regular rate and rhythm - GI/Abdominal GI/Abdominal exam: Present: normal bowel sounds, soft - Extremities Exam Extremities exam: Present: full ROM - Neurological Exam Neurological exam: Present: alert, oriented X3, CN II-XII intact - Psychiatric Psychiatric exam: Present: normal affect, other (Looks rather weak) - Skin Skin exam: Present: normal color, warm, dry Results - Labs CBC & BMP: 06/23/16 05:03 06/23/16 05:03 Lab Results: I have reviewed the past 24 hour labs
--- NOTE | 2016-06-23 11:46 | Pulmonology Progress Note ---
Pulmonary - PN: Subj Interval history: 80-year-old female originally admitted with right lower lobe pneumonia due to aspiration, now with development of symptomatic anemia thought to be due to an upper GI bleed. Yesterday patient was found to have an hemoglobin of 4 and was transferred to the ICU for closer monitoring. Over the last 24 hours she has received 4 units packed red blood cells and FFP with subsequent appropriate correction of hemoglobin and INR. This morning patient remains fatigued with complaint of dyspnea but is not acutely changed. Patient continues to have melena. GI is following with tentative plans for EGD/colonoscopy Saturday or Saturday. Exam (Progress Note) - Constitutional Vitals: Period Temp Pulse Resp BP Sys/Maya Pulse Ox Last 24 Hr 97 F-98.0 F 73-104 13-50 115-159/44-84 91-100 General appearance: over weight - Head Head exam: Present: normal inspection - Eye Eye exam: Present: EOMI Pupils: Present: LISBET - ENT ENT exam: Present: normal exam - Neck Neck exam: Present: normal inspection - Respiratory Respiratory exam: Present: clear to auscultation bilaterally, decreased breath sounds - Cardiovascular Cardiovascular exam: Present: regular rate and rhythm - GI/Abdominal GI/Abdominal exam: Present: tenderness (Mild), soft. Absent: guarding, rebound - Extremities Exam Extremities exam: Present: normal inspection - Neurological Exam Neurological exam: Present: alert, oriented X3 - Skin Skin exam: Present: warm, dry Results - Labs CBC & BMP: 06/23/16 05:03 06/23/16 05:03 - Diagnostic Findings Procedure: Chest x-ray: image reviewed by me, report reviewed by me Assessment and Plan (1) GI bleed Status: Acute Assessment and plan: Likely upper given melena. Appropriate increase in hemoglobin with transfusion yesterday. Continue to monitor with interval CBCs and monitor hemodynamics closely. Would recheck INR in the morning with further correction if needed. GI following. Current Visit: Yes Qualifiers: GI bleed type/associated pathology: unspecified peptic ulcer Qualified Code (s): K27.4 - Chronic or unspecified peptic ulcer, site unspecified, with hemorrhage (2) C. difficile colitis Status: Acute Assessment and plan: Discovered on 06/19/16. Continue Flagyl and vancomycin. Current Visit: Yes (3) Pneumonia Status: Acute Assessment and plan: Slight interval worsening in right lower lobe infiltrate this morning. Obtain sputum culture and continue antibiotics. Current Visit: Yes Qualifiers: Pneumonia type: due to unspecified organism Laterality: bilateral Lung location: lower lobe of lung Qualified Code(s): J18.9 - Pneumonia, unspecified organism (4) Chronic kidney disease (CKD) stage G3a/A1, moderately decreased glomerular filtration rate (GFR) between 45-59 mL/min/1.73 square meter and albuminuria creatinine ratio less than 30 mg/g Status: Chronic Assessment and plan: Creatinine stable this morning. Continue to monitor closely and adjust antibiotics as needed for renal function. Nephrology following Current Visit: Yes (5) Acute exacerbation of chronic obstructive airways disease Status: Acute Assessment and plan: Overall stable this morning without evidence of wheezes on exam. Continue current management with nebs, prednisone and antibiotics Current Visit: Yes
[2016-06-23 11:57] LABS: Hemoglobin 10.6 GM/DL (12.0-16.0)
[2016-06-23] MEDS ORDERED: CEFEPIME 1,000 MG VIAL IM SCH (12:00)
[2016-06-23] MEDS ORDERED: methylPREDNISolone 4 MG TABLET PO SCH (12:00)
[2016-06-23] MEDS ORDERED: CEFEPIME 1,000 MG VIAL IV SCH (12:10)
[2016-06-23] MEDS: PANTOPRAZOLE INJ 200 MG in SODIUM CHLORIDE 0.9% 250 ML IV SCH ×2 (12:47→18:25)
[2016-06-23] MEDS: methylPREDNISolone 4 MG TABLET PO SCH ×3 (13:01→20:22)
[2016-06-23] MEDS ORDERED: VANCOMYCIN INJ 1,250 MG in SODIUM CHLORIDE 0.9% 250 ML IV SCH (14:00)
--- NOTE | 2016-06-23 14:39 | CT Report ---
CT chest wo con Indication: Resolving infiltrate Comparison: None available Technique: Axial CT imaging of the chest was done at 3 mm intervals without intravenous contrast. Findings: Left lower lung airspace density is present. There is no distinct pulmonary mass. There is bronchial calcification and bronchiectasis present. This is more prominent within the area leading to the left lower lobe. Many of these bronchi or filled with increased mucosal density. Small amount of similar changes are present in the right lower lung to a lesser degree. No distinct nodule or mass is identified. No effusion or pneumothorax is seen. There is large amount of coronary artery and moderate amount of aorta calcification. Heart, mediastinum and great vessels appear within normal limits. No other abnormality is identified. Impression: Bronchial calcification and bronchiectasis in both lungs, most prominent extending into the left lower lung and there is left lower lung airspace density. Small amount of similar changes are present in the right lower lobe. Many of the bronchi are partially occupied by mucosal density. This CT exam was performed using one or more the following dose reduction techniques: Automated exposure control, adjustment of the MA and/or KV according to patient size, or use of iterative reconstruction technique. PROCEDURE INTERPRETED AT [facility] DEPARTMENT OF RADIOLOGY Final Report Signed by: Dr. Jf Angulo
[2016-06-23] MEDS: CEFEPIME 500 MG in SODIUM CHLORIDE 0.9% 100 ML IV SCH (14:49)
[2016-06-23 17:16] LABS: Hematocrit 32.7 VOL% (35.7-47.0)
[2016-06-23] MEDS: ONDANSETRON 4 MG/2 ML VIAL IV PRN (17:44)
[2016-06-23] MEDS: BUDESONIDE 0.5 MG/2 ML NEB RESP TX SCH (19:35)
[2016-06-23] MEDS: GABAPENTIN 100 MG CAPSULE PO SCH (20:25)
[2016-06-23] MEDS: traZODone 50 MG TABLET PO PRN (20:25)
[2016-06-23 23:28] LABS: Hematocrit 29.3 VOL% (35.7-47.0); Hemoglobin 10.3 GM/DL (12.0-16.0)
[2016-06-24] MEDS: ALBUTEROL/IPRATROPIUM 3 ML NEB RESP TX SCH ×4 (00:11→19:14)
[2016-06-24] MEDS: metroNIDAZOLE INJ 500 MG in PREMIX 1 EACH IV SCH ×3 (02:13→18:30)
[2016-06-24 05:11] LABS: Calcium 7.9 MG/DL (8.5-10.1); Magnesium 1.8 MG/DL (1.8-2.4); Potassium 4.1 MMOL/L (3.5-5.1)
[2016-06-24 06:27] LABS: Basophils % 0.1 % (0.0-0.8); Hemoglobin 10.3 GM/DL (12.0-16.0); Immature Granulocytes % 5.7 %; Immature Granulocytes Absolute 1.27 #; Lymphocytes # 2.1 10*3/uL (1.4-4.0); Lymphocytes % 9.4 % (21.3-54.2); Mean Corpuscular HGB Conc 35.5 GM/DL (32-36); Mean Corpuscular Hemoglobin 31 PG (27-34); Mean Corpuscular Volume 86.8 FL (87-102); Mean Platelet Volume 9.5 FL (9.6-12.0); Monocytes # 1.7 10*3/uL (0.11-0.8); Monocytes % 7.8 % (1.7-12.7); NRBC # 0.31 10*3/uL; Platelet Count 178 T/CUMM (130-400); Red Blood Count 3.34 MC/CUMM (3.8-5.5); Red Cell Distribution Width 15.6 % (9.3-17.3); White Blood Count 22.1 T/CUMM (4-12)
[2016-06-24 06:43] LABS: INR 1.3; PT Patient Result 14.3 SECS
[2016-06-24] MEDS: BUDESONIDE 0.5 MG/2 ML NEB RESP TX SCH ×2 (07:30→19:14)
[2016-06-24 07:46] LABS: Hypochromasia 1+; Lymphocytes 10 % (20-55); Microcytosis 1+; Nucleated Red Blood Cells 2 (0-5); Platelet Estimate Adequate; Polychromasia 1+; Segmented Neutrophils 85 % (50-85); Spherocytes Few; Total Cells Counted 100
--- NOTE | 2016-06-24 08:16 | Gastrointestinal Progress Note ---
Assessment and Plan (1) Nausea Status: Acute Current Visit: Yes (2) Acute blood loss anemia Status: Acute Current Visit: Yes (3) C. difficile colitis Status: Acute Current Visit: Yes (4) Other specified counseling Status: Acute Current Visit: Yes Exam (Progress Note) - Constitutional Vitals: Period Temp Pulse Resp BP Sys/Maya Pulse Ox Last 24 Hr 97.5 F-98.2 F 77-99 11-23 131-157/48-94 88-98 Results - Labs CBC & BMP: 06/24/16 06:20 06/24/16 04:42 Note Addendum: PLEASE NOTE -- automatic citation of patient information is unavoidable in this electronic note. I have made a reasonable effort to review the information cited , but it is not a part of my evaluation, impression, or recommendation unless specifically discussed in the dictated text that follows. As well, voice recognition software was used in the creation of this clinical note. Reasonable effort was made to identify and correct gross errors. Despite proofreading, errors in obiee obia solution architect may be present, including nonsense verbiage at times. If you encounter such an error, please contact me at for discussion and correction. -- Berna Chief complaint: nausea Subjective: the patient is an 80-year-old female seen for follow-up of persistent nausea as well as symptomatic anemia. No bowel movements have been noted overnight but the patient reports one this morning. The patient reports feeling sick to her stomach but this is controlled with anti-emetic medications. She also notes that she still doesn't feel as if she is breathing comfortably. Medications: Tylenol, Duoneb, Klonopin, Colace, Neurontin, Levaquin, Solu-Medrol , Flagyl, Zofran, Protonix, MiraLAX, potassium chloride, Phenergen, trazodone, vancomycin, sodium chloride infusion Review of Symptoms: 12 point review of symptoms was negative except as noted above Physical examination: Vital Signs: Current vital signs reviewed. General Appearance: lying in bed. Comfortable. Facemask in place. No acute distress. Head: Normocephalic. Eyes: no scleral icterus. No scleral injection. No conjunctival pallor. Oral Cavity: Odor of breath was normal. No drooling was observed. Lips showed no abnormalities. Lungs: Respiration rhythm and depth was normal. Cardiovascular: Heart rate and rhythm were normal. Abdomen: abdomen was not distended. Abdominal auscultation revealed no abnormalities. Ascites was not discovered. Abdominal palpation revealed mild tenderness diffusely but no guarding. Musculoskeletal System: musculoskeletal system was grossly normal. Neurological: level of consciousness was normal. Speech was normal. No coordination/cerebellum abnormalities were noted. Skin: Gen. appearance was normal. Color and pigmentation were normal. No skin lesions were appreciated. Laboratory: white blood count 22.1, hemoglobin 10.3, hematocrit 29.0, platelets 178, INR 1.3, PT 14.3 Radiology: Chest CT, June 23, 2016 -- bronchial calcification and bronchiectasis in both lungs most prominent extending into the left lower lung with left lower long airspace density; similar changes present in the right lower lobe; many bronchi partially occupied by mucosal density Impressions: 1. Nausea -- the patient reports continued nausea and is currently treated with anti-emetic with adequate result. I recommend continuing same for now. The patient will need upper endoscopy with timing based on clinical progress. 2. Symptomatic anemia -- blood counts have remained stable. As previously discussed, the patient will need both upper and lower endoscopy with timing based on clinical progress. We will tentatively work toward Saturday for the upper endoscopy, presuming some improvement in respiratory status. 3. Clostridium difficile infection -- continue current therapy. 4. Other specified counseling -- Patient seen for greater than 30 minutes. Greater than 50% of this time was spent counseling regarding differential diagnosis, likely diagnosis,, diagnostic and therapeutic options, risks, benefits, and alternatives to procedures and medications, informed consent, and plan of care generally. Patient has expressed understanding and wishes to proceed. Recommendations: -- continue volume management -- agree with holding anticoagulant/antiplatelet medications -- continue proton pump inhibitor -- monitor blood counts with transfusion as indicated -- continue antibiotic therapy against Clostridium difficile infection -- upper endoscopy and colonoscopy with timing based on clinical progress -- we will continue to follow with you. Dr. Lima will resume G.I. care for this patient tomorrow.
--- NOTE | 2016-06-24 08:57 | XRay Report ---
XR chest 1V portable Indication: Pneumonia Comparison: 23 Jun 2016 Findings: The heart and mediastinum are stable in size and configuration. The pulmonary vascularity is prominent especially centrally similar to previous study. Small amounts of lower lung base or density are present similar to previous exam. No other lung infiltrates, effusions, pneumothorax or other abnormality is demonstrated. Impression: No significant change. PROCEDURE INTERPRETED AT [facility] DEPARTMENT OF RADIOLOGY Final Report Signed by: Dr. Jf Angulo
[2016-06-24] MEDS: POLYETHYLENE GLYCOL POWDER 17 GM PACK PO SCH (09:14)
[2016-06-24] MEDS: DESITIN 4OZ/NYSTATIN 15 GRAM MIXTURE PASTE TOP SCH ×2 (09:15→21:12)
[2016-06-24] MEDS: POLYVINYL ALCOHOL 1.4% OPH SOLN 15 ML BOTTLE BOTH EYES SCH ×3 (09:15→20:25)
[2016-06-24] MEDS: methylPREDNISolone 4 MG TABLET PO SCH ×4 (09:15→20:23)
--- NOTE | 2016-06-24 09:56 | Hospitalist Progress Note ---
Assessment and Plan (1) Pneumonia Status: Acute Assessment and plan: As of now this is bilateral lower lung pneumonia with unspecified organism to date. Discussed is currently on levofloxacin IV with the oral vancomycin and oral metronidazole. Will need to verify very detailed continue levofloxacin at this point. This is more so because quinolone stent to select for very purulent C. difficile strains. Repeat a chest x-ray done today does not show any improvement or looks worse than at the beginning. She maintains a leukocytosis (albeit use of systemic steroids) CT scan of the chest done yesterday without contrast reveals bilateral bronchiectasis with a density in the left lower lobe. There is observed possible ectasia versus severe impaction of bronchial airways with secretions. Patient does have history of COPD this x-ray is not improving white count is still high albeit use of systemic steroids. Pulmonology is already on the case. If the patient needs to have bronchoscopy and alveolar lavage to improve on her respiratory status and/or obtain better specimen for microbiologic evaluation then you should be possible for pulmonary to provide that service. Current Visit: Yes Qualifiers: Pneumonia type: due to unspecified organism Laterality: bilateral Lung location: lower lobe of lung Qualified Code(s): J18.9 - Pneumonia, unspecified organism (2) GI bleed Status: Acute Assessment and plan: This is upper GI bleed. Hematocrit is stable. Gastroenterology is on the case. Current Visit: Yes Qualifiers: GI bleed type/associated pathology: unspecified peptic ulcer Qualified Code (s): K27.4 - Chronic or unspecified peptic ulcer, site unspecified, with hemorrhage (3) C. difficile colitis Status: Acute Assessment and plan: Continue oral metronidazole and oral vancomycin. I recommend discontinuing the levofloxacin should be de-escalating steroid use unless it is imperative that we will continue using it. Switch her to Medrol Dosepak and budesonide. Current Visit: Yes Hospitalist: Subjective Interval history: Patient has been seen interviewed and examined and chart has been reviewed. She is complaining that she is not feeling very good. Cannot elaborate on that. Denies any chest pain denies any musculoskeletal pains she acknowledges feeling tired and short winded. There is no respiratory distress. Admitted to the intensive care unit on transfer from the medical floor for an aggressive upper GI bleed. Hematocrit has remained stable at 10.3/29.0. She also was admitted with pneumonia and exacerbation of COPD to the medical floor. In the interim she has had acute kidney injury on on on chronic kidney disease. Her creatinine today is 1.7 which is a lot better but her BUN remains high at 100. The BUN is high and she will because of GI bleed (bleeding above the ligament of Treitz). Exam - Constitutional Vitals: Period Temp Pulse Resp BP Sys/Maya Pulse Ox Last 24 Hr 97.5 F-98.2 F 77-99 11-23 131-157/48-94 88-98 General appearance: no acute distress, over weight, other (Looks asthenic) - Head Head exam: Present: normocephalic, atraumatic - Eye Eye exam: Present: EOMI Pupils: Present: LISBET - ENT ENT exam: Present: normal exam, normal oropharynx - Neck Neck exam: Present: normal inspection, other (Supple neck no JVD no adenopathy no thyromegaly) - Respiratory Respiratory exam: Present: clear to auscultation bilaterally, other (Basilar crackles) - Cardiovascular Cardiovascular exam: Present: regular rate and rhythm - GI/Abdominal GI/Abdominal exam: Present: normal bowel sounds, soft - Extremities Exam Extremities exam: Present: full ROM - Neurological Exam Neurological exam: Present: alert, oriented X3, CN II-XII intact - Psychiatric Psychiatric exam: Present: other (Subdued affect looks within) - Skin Skin exam: Present: normal color, warm, dry Results - Labs CBC & BMP: 06/24/16 06:20 06/24/16 04:42 Lab Results: I have reviewed the past 24 hour labs (Stable hematocrit. Blood counts to 22,100 this could be secondary to steroid use. Creatinine is improved to 1.7)
[2016-06-24] MEDS: PANTOPRAZOLE INJ 200 MG in SODIUM CHLORIDE 0.9% 250 ML IV SCH ×2 (10:11→22:19)
--- NOTE | 2016-06-24 10:28 | Pulmonology Progress Note ---
Pulmonary - PN: Subj Interval history: 80-year-old female originally admitted with right lower lobe pneumonia due to aspiration, now with development of symptomatic anemia thought to be due to an upper GI bleed. Overnight patient's hemoglobin remained stable without requiring further blood transfusion. She continued to have melena, though decreased in frequency. GI is following with plans for endoscopy tomorrow. This morning she continues to complain of generalized fatigue and shortness of breath without specific changes from yesterday. CT chest performed yesterday showed bronchiectasis and left lower lobe airspace density. Exam (Progress Note) - Constitutional Vitals: Period Temp Pulse Resp BP Sys/Maya Pulse Ox Last 24 Hr 97.5 F-98.2 F 77-99 11-23 131-157/48-94 88-98 General appearance: over weight - Head Head exam: Present: normal inspection - Eye Eye exam: Present: EOMI, conjunctival injection, nystagmus Pupils: Present: LISBET - Respiratory Respiratory exam: Present: clear to auscultation bilaterally, decreased breath sounds - Cardiovascular Cardiovascular exam: Present: regular rate and rhythm - GI/Abdominal GI/Abdominal exam: Present: normal bowel sounds, soft. Absent: tenderness - Extremities Exam Extremities exam: Present: normal inspection - Neurological Exam Neurological exam: Present: alert, oriented X3 - Psychiatric Psychiatric exam: Present: depressed - Skin Skin exam: Present: warm, dry Results - Labs CBC & BMP: 06/24/16 06:20 06/24/16 04:42 - Diagnostic Findings Procedure: Chest x-ray: image reviewed by me (Stable from yesterday), CT - chest : image reviewed by me, report reviewed by me (Bilateral lower lobe bronchiectasis left greater than right, left lower lobe airspace density.) Assessment and Plan (1) Pneumonia Status: Acute Assessment and plan: CT chest yesterday showed bronchiectasis and mild left lower lobe density of unclear etiology/significance. Could consider performing bronchoscopy in conjunction with endoscopy planned by GI early this week. Agree with stopping Levaquin as it does not appear to have provided significant improvement and may be worsening her C. difficile infection. Patient should be evaluated for NTM given the bronchiectasis noted on CT, which could be done via bronchoscopy. Will defer to primary eyeglass lens cutter tomorrow. Current Visit: Yes Qualifiers: Pneumonia type: due to unspecified organism Laterality: bilateral Lung location: lower lobe of lung Qualified Code(s): J18.9 - Pneumonia, unspecified organism (2) Acute exacerbation of chronic obstructive airways disease Status: Acute Assessment and plan: Overall stable this morning without evidence of wheezes on exam. Agree with the de-escalating steroid dosage, continue bronchodilators. Current Visit: Yes (3) GI bleed Status: Acute Assessment and plan: Likely upper given melena. Hemoglobin stable without requirement for further transfusion. INR corrected with FFP. GI following with plans for endoscopy soon. Current Visit: Yes Qualifiers: GI bleed type/associated pathology: unspecified peptic ulcer Qualified Code (s): K27.4 - Chronic or unspecified peptic ulcer, site unspecified, with hemorrhage (4) C. difficile colitis Status: Acute Assessment and plan: Treating with Flagyl and vancomycin. Current Visit: Yes (5) Chronic kidney disease (CKD) stage G3a/A1, moderately decreased glomerular filtration rate (GFR) between 45-59 mL/min/1.73 square meter and albuminuria creatinine ratio less than 30 mg/g Status: Chronic Assessment and plan: Creatinine improving this morning. Continue to monitor closely and adjust antibiotics as needed for renal function. Nephrology following Current Visit: Yes
[2016-06-24 10:46] LABS: Hematocrit 28.8 VOL% (35.7-47.0)
--- NOTE | 2016-06-24 12:08 | Nephrology Progress Note ---
Nephrology - PN: Subj Interval history: Patient is resting at this time. Serum creatinine is noted be 1.7 which is improving. Exam (PN)-Nephrology - Vital Signs Vital signs: Period Temp Pulse Resp BP Sys/Maya Pulse Ox Last 24 Hr 97.5 F-98.2 F 77-99 11-23 131-157/48-94 88-98 - General Appearance General appearance: well-developed, well-nourished EENT: ATNC Neck: supple Respiratory: clear Cardiology: regular rate, regular rhythm Gastrointestinal: normoactive bowel sounds, no tenderness Neurologic: alert and oriented x3 Psychiatric: mood/affect appropriate - Lab 06/24/16 10:36 06/24/16 04:42 Most recent lab results ABG pH 7.430 (7.35-7.45) 06/20/16 03:40 ABG pCO2 57.3 MM HG (35-48) H 06/20/16 03:40 ABG pO2 69.0 MM HG (80-95) L 06/20/16 03:40 ABG HCO3 35.3 MMOL/L (20-26) H 06/20/16 03:40 ABG O2 Saturation 93.4 % (95-100) L 06/20/16 03:40 Calcium 7.9 MG/DL (8.5-10.1) L 06/24/16 04:42 Magnesium 1.8 MG/DL (1.8-2.4) 06/24/16 04:42 Assessment and Plan (1) Chronic kidney disease (CKD) stage G3a/A1, moderately decreased glomerular filtration rate (GFR) between 45-59 mL/min/1.73 square meter and albuminuria creatinine ratio less than 30 mg/g Status: Chronic Assessment and plan: Avoid nephrotoxic agents Daily BMP Renal function has been stable. Good urine output. Current Visit: Yes (2) Acute exacerbation of chronic obstructive airways disease Status: Acute Current Visit: Yes (3) PAPO (acute kidney injury) Status: Acute Assessment and plan: No nephrotoxic agents Daily BMP Current Visit: Yes
[2016-06-24] MEDS: CEFEPIME 500 MG in SODIUM CHLORIDE 0.9% 100 ML IV SCH (14:10)
[2016-06-24 16:36] LABS: Hematocrit 28.2 VOL% (35.7-47.0); Hemoglobin 9.6 GM/DL (12.0-16.0)
[2016-06-24] MEDS: DEXTROSE 5% NACL 0.9% 1,000 ML IV SCH (19:41)
[2016-06-24] MEDS: GABAPENTIN 100 MG CAPSULE PO SCH (20:23)
[2016-06-24] MEDS: traZODone 50 MG TABLET PO PRN (20:55)
[2016-06-24] MEDS: PROMETHAZINE INJ 12.5 MG in SODIUM CHLORIDE 0.9% 50 ML IV PRN (21:16)
[2016-06-25] MEDS: ALBUTEROL/IPRATROPIUM 3 ML NEB RESP TX SCH ×4 (00:49→20:33)
[2016-06-25] MEDS: clonazePAM 0.5 MG TABLET PO PRN ×2 (00:55→21:14)
[2016-06-25] MEDS: BACLOFEN 10 MG TABLET PO SCH ×3 (02:06→21:14)
[2016-06-25] MEDS: metroNIDAZOLE INJ 500 MG in PREMIX 1 EACH IV SCH ×3 (02:12→17:44)
[2016-06-25] MEDS ORDERED: VANCOMYCIN INJ 1,250 MG in SODIUM CHLORIDE 0.9% 250 ML IV SCH (03:00)
[2016-06-25] MEDS: PROMETHAZINE INJ 12.5 MG in SODIUM CHLORIDE 0.9% 50 ML IV PRN (03:31)
[2016-06-25 05:41] LABS: Basophils % 0.1 % (0.0-0.8); Hematocrit 27.4 VOL% (35.7-47.0); Hemoglobin 9.2 GM/DL (12.0-16.0); Immature Granulocytes % 4.7 %; Immature Granulocytes Absolute 0.97 #; Lymphocytes # 1.3 10*3/uL (1.4-4.0); Lymphocytes % 6.2 % (21.3-54.2); Mean Corpuscular HGB Conc 33.6 GM/DL (32-36); Mean Corpuscular Hemoglobin 31 PG (27-34); Mean Corpuscular Volume 91.9 FL (87-102); Mean Platelet Volume 9.6 FL (9.6-12.0); Monocytes # 1.3 10*3/uL (0.11-0.8); Monocytes % 6.4 % (1.7-12.7); NRBC # 0.13 10*3/uL; Neutrophils # 17.1 10*3/uL (1.4-7.4); Neutrophils % 82.6 % (38.7-73.9); Platelet Count 159 T/CUMM (130-400); Red Blood Count 2.98 MC/CUMM (3.8-5.5); White Blood Count 20.7 T/CUMM (4-12)
[2016-06-25 06:00] LABS: INR 1.2; PT Patient Result 12.6 SECS
[2016-06-25 06:05] LABS: Hypochromasia 1+; Lymphocytes 5 % (20-55); Nucleated Red Blood Cells 2 (0-5); Platelet Estimate Normal; Segmented Neutrophils 91 % (50-85); Total Cells Counted 100
[2016-06-25 06:06] LABS: Microcytosis 1+
[2016-06-25 06:16] LABS: Calcium 7.8 MG/DL (8.5-10.1); Magnesium 1.8 MG/DL (1.8-2.4); Osmolality,Calculated 312.6 MOS/KG (273-304); Potassium 4.4 MMOL/L (3.5-5.1)
--- NOTE | 2016-06-25 06:39 | Nephrology Progress Note ---
Nephrology - PN: Subj Interval history: Patient has had good urine output serum creatinine continues to improve no new recommendations for this patient. We will sign off Exam (PN)-Nephrology - Vital Signs Vital signs: Period Temp Pulse Resp BP Sys/Maya Pulse Ox Last 24 Hr 97.5 F-98.2 F 74-100 11-93 119-162/46-66 87-97 - General Appearance General appearance: well-developed, well-nourished EENT: ATNC Neck: supple Respiratory: clear Cardiology: regular rate, regular rhythm Gastrointestinal: normoactive bowel sounds, no tenderness Neurologic: no focal deficit Musculoskeletal: no clubbing Psychiatric: mood/affect appropriate - Lab 06/25/16 05:27 06/25/16 05:27 Most recent lab results ABG pH 7.430 (7.35-7.45) 06/20/16 03:40 ABG pCO2 57.3 MM HG (35-48) H 06/20/16 03:40 ABG pO2 69.0 MM HG (80-95) L 06/20/16 03:40 ABG HCO3 35.3 MMOL/L (20-26) H 06/20/16 03:40 ABG O2 Saturation 93.4 % (95-100) L 06/20/16 03:40 Calcium 7.8 MG/DL (8.5-10.1) L 06/25/16 05:27 Magnesium 1.8 MG/DL (1.8-2.4) 06/25/16 05:27 Assessment and Plan (1) Chronic kidney disease (CKD) stage G3a/A1, moderately decreased glomerular filtration rate (GFR) between 45-59 mL/min/1.73 square meter and albuminuria creatinine ratio less than 30 mg/g Status: Chronic Assessment and plan: Avoid nephrotoxic agents Daily BMP Renal function has been stable. Good urine output. Current Visit: Yes (2) Acute exacerbation of chronic obstructive airways disease Status: Acute Current Visit: Yes (3) PAPO (acute kidney injury) Status: Acute Assessment and plan: No nephrotoxic agents Current Visit: Yes
[2016-06-25] MEDS: BUDESONIDE 0.5 MG/2 ML NEB RESP TX SCH ×2 (08:12→20:33)
--- NOTE | 2016-06-25 08:29 | XRay Report ---
Portable chest Date: 06/25/2016 Clinical history: Pneumonia Comparison: 06/24/2016 Technique: Portable AP sitting chest Findings: Stable cardiomegaly and right subclavian venous access catheter. The tip of the catheter projects laterally in the right shoulder location. Reduced diffuse parenchymal findings at the lung bases with stable mediastinum and osseous structures. Impression: Minimally reduced atelectasis/infiltration at the lung bases with persistent small pleural effusions. PROCEDURE INTERPRETED AT [facility] DEPARTMENT OF RADIOLOGY Final Report Signed by: Dr. Alethea Douglas
[2016-06-25] MEDS: POLYETHYLENE GLYCOL POWDER 17 GM PACK PO SCH (09:10)
[2016-06-25] MEDS: DEXTROSE 5% NACL 0.9% 1,000 ML IV SCH (09:11)
[2016-06-25] MEDS: POLYVINYL ALCOHOL 1.4% OPH SOLN 15 ML BOTTLE BOTH EYES SCH ×3 (09:11→21:13)
[2016-06-25] MEDS: DESITIN 4OZ/NYSTATIN 15 GRAM MIXTURE PASTE TOP SCH ×2 (09:11→21:14)
--- NOTE | 2016-06-25 09:35 | Hospitalist Progress Note ---
Assessment and Plan (1) Pneumonia Status: Acute Assessment and plan: As of now this is bilateral lower lung pneumonia with unspecified organism to date. Discussed is currently on levofloxacin IV with the oral vancomycin and oral metronidazole. Will need to verify very detailed continue levofloxacin at this point. This is more so because quinolone stent to select for very purulent C. difficile strains. Repeat a chest x-ray done today does not show any improvement or looks worse than at the beginning. She maintains a leukocytosis (albeit use of systemic steroids) CT scan of the chest done yesterday without contrast reveals bilateral bronchiectasis with a density in the left lower lobe. There is observed possible ectasia versus severe impaction of bronchial airways with secretions. Patient does have history of COPD this x-ray is not improving white count is still high albeit use of systemic steroids. Pulmonology is already on the case. If the patient needs to have bronchoscopy and alveolar lavage to improve on her respiratory status and/or obtain better specimen for microbiologic evaluation then you should be possible for pulmonary to provide that service. Current Visit: Yes Qualifiers: Pneumonia type: due to unspecified organism Laterality: bilateral Lung location: lower lobe of lung Qualified Code(s): J18.9 - Pneumonia, unspecified organism (2) GI bleed Status: Acute Assessment and plan: This is upper GI bleed. H&H today is 9.2 and 27.4 which is within observational statistical standard error compared to the last 48 hours. Gastroenterology is on the case. Current Visit: Yes Qualifiers: GI bleed type/associated pathology: unspecified peptic ulcer Qualified Code (s): K27.4 - Chronic or unspecified peptic ulcer, site unspecified, with hemorrhage (3) C. difficile colitis Status: Acute Assessment and plan: Continue oral metronidazole and oral vancomycin. I recommend discontinuing the levofloxacin should be de-escalating steroid use unless it is imperative that we will continue using it. Switch her to Medrol Dosepak and budesonide. Current Visit: Yes Hospitalist: Subjective Interval history: Patient has been seen interviewed and examined and chart has been reviewed. Ms. Berman is a history of pneumonia with exacerbation of COPD was on a medical floor where she developed profound GI bleed with hypotension on this when she was transferred here. I took over the care again this past Saturday on hospital medicine service. Biggest issue at this point is that she has had some respiratory difficulty over the weekend did a CT scan of the chest with a chest x-ray was noted improving on the left side. That shows presence of bronchiectasis most on the left than the right there is thickening of the bronchioles suggesting possible inspissation. This patient may need bronchoscopy with lavage and improvement of breathing. To me this does not appear to be contribution of other cardiac issues including ischemia. Pulmonary note has been reviewed and attention is greatly appreciated Exam - Constitutional Vitals: Period Temp Pulse Resp BP Sys/Maya Pulse Ox Last 24 Hr 98.1 F-98.2 F 74-100 13-93 119-162/46-66 87-97 General appearance: no acute distress, over weight - Head Head exam: Present: normocephalic - Eye Eye exam: Present: EOMI Pupils: Present: LISBET - ENT ENT exam: Present: normal exam - Neck Neck exam: Present: normal inspection - Respiratory Respiratory exam: Present: other (Bibasilar crackles with occasional cough patient was evaluated at the termination of the receiving nebulized treatment) - Cardiovascular Cardiovascular exam: Present: irregular rhythm, other (quality assurance monitor chassis symptoms suggests sinus rhythm with APCs) - GI/Abdominal GI/Abdominal exam: Present: normal bowel sounds, soft - Extremities Exam Extremities exam: Present: other (Generalized weakness of acute on chronic disease no focal neurologic deficit) - Back Exam Back exam: Present: normal inspection - Neurological Exam Neurological exam: Present: alert, oriented X3, CN II-XII intact - Psychiatric Psychiatric exam: Present: normal affect, normal mood - Skin Skin exam: Present: normal color, warm Results - Labs CBC & BMP: 06/25/16 05:27 06/25/16 05:27 Lab Results: I have reviewed the past 24 hour labs (Noted leukocytosis most likely related to systemic steroid use but lower respiratory infection cannot be completely ruled out there is progressive improvement in her serum creatinine )
[2016-06-25] MEDS: methylPREDNISolone 4 MG TABLET PO SCH ×4 (10:17→21:14)
--- NOTE | 2016-06-25 11:06 | Pulmonology Progress Note ---
Pulmonary - PN: Subj Interval history: Cornell Bailey, ANP-BC, GNP-BC, acting as scribe for Dr. Clay Kingsley This 80-year-old white female who we saw in initial pulmonary consultation on 06/18/2016. This patient had been transferred here from [facility] in [place], [place]. She had been short of breath and hypoxemic. At the time of our initial consultation, our impressions were: 1. Acute right lower lung pneumonia probably improving 2. Possible aspiration secondary to nausea and vomiting 3. Possible dilated stomach. Intractable nausea and vomiting 4. Acute on chronic renal failure 5. Chronic anticoagulation. 6. History of chronic pain 7. High blood pressure 8. See past history 9. Hypokalemia 06/19/2016. Today's x-ray shows cardiomegaly and a resolving right lower lung infiltrate. Patient has increased interstitial markings in both upper lungs and in both bases. There are no positive cultures. Patient says she is breathing better and she is definitely on a lot less distress. White blood cell count was 13,900 with 91 segs. H&H is dropped to 10.5/32.4. Sodium is 144 potassium remains low at 3.0 on replacement protocol. Creatinine which was 1.6 at admission has now gone to 4.20 with a BUN of 9 I have come take in the liberty of consulting renal. D5 normal saline at 75 cc/h was started last night by me. INR is 3.2. I am holding Coumadin. I have continued Lovenox 40 mg once a day but we may need to stop this. Doppler venograms of the lower extremities have shown no evidence of deep venous thrombophlebitis. ABGs 06/18/2016. FiO2 40%. PH 7.51, PCO2 58.8, PO2 51.5. Bicarb 43.6 06/20/2016. Today's x-ray shows resolving right lower lung infiltrate and a resolving residual left lower lung infiltrate patient stools are positive for C. difficile. There are no positive cultures from the sputum's. Patient has stools which were positive for blood. Patient's Lovenox is being held. She has been off of Coumadin for several days. INR is now 5.7 have ordered 2 units of fresh frozen plasma. ABGs on FiO2 of 50% shows a pH 7.43, PCO2 of 57.3, PO2 is 69.0 and a bicarb of 35.3. Potassium is up to 3.2. Creatinine remains elevated 4.5 with a BUN of 141. White blood cell count is elevated at 16,800 with 90.6 segs. H&H is dropped to 9.4/27.6 and platelet count is 247,000. Natruretic peptide is 26. 06/21/2016. Patient's breathing seems much better today. Her diarrhea is nearly resolved. INR is dropped from 5.7-4.8. I am going to transfuse her with 2 units of fresh frozen plasma. Potassium is 3.3. Patient is on a replacement protocol. White count is 18,500 with 86 segs. H&H is 9.1/26.4. Platelets are 278,000. Chest x-ray will be repeated tomorrow. Creatinine has dropped from 4.50-2.20 with a BUN of 102. 06/22/2016. The patient has been moved to intensive care this morning secondary to severe anemia with a hematocrit of 14.6. Melena stool noted by floor nurse this morning. She is to be transfused 4 units of packed red blood cells. She is also supposed to get 1 more unit of fresh frozen plasma. Patient has not been on her Plavix. She has already received 4 units of fresh frozen plasma over the past 2 days. INR today is 3.8. Certainly, her respiratory status has been affected secondary to her severe anemia. She is remaining on 50% facemask and is maintaining her oxygen saturations. Her known right lower lung infiltrate is improving slowly. 06/25/2016. The patient remains in intensive care. Since admission, the patient has been transfused 4 units of blood and 5 units of fresh frozen plasma. H&H today is 9.2/27.4. CT of the chest done 06/23/16 showed bronchial calcification and bronchiectasis of both lungs most prominent extending into the left lower lung and and there was left lower lung airspace density. Small amount of similar changes were seen on the right. Many of the bronchi were partially occupied by mucosal density. The patient is stable enough to proceed with FOB, so this will be scheduled for tomorrow morning at 0800 at bedside. Medications have been reviewed. We made no changes today. Labs have been reviewed. White count is 20,700 with 82.6% segs; H&H 9.2/27.4; PLT count 159,000; creatinine improved to 1.40, BUN 76, NA+ 146, K+ 4.4, Mg+ 1.8 ; INR 1.2 Exam (Progress Note) - Constitutional Vitals: Period Temp Pulse Resp BP Sys/Maya Pulse Ox Last 24 Hr 98.1 F-98.2 F 74-100 14-93 119-162/46-87 89-97 Exam: Chest is wheeze free, expiration is prolonged and incomplete; note, mild tracheal enlargement airway wheezes have resolved Heart no gallop Abdomen is nontender and nondistended; bowel sounds are positive 4 Extremities with nothing to suggest acute deep venous thrombophlebitis Psychiatric awake and oriented Neurologic long tract motor function is intact Plan: Continue present pulmonary medications. We will proceed with bronchoscopy in the morning at 8:00. Continue daily labs. Chest x-ray in the morning. Dr. Lima is following from a GI standpoint. Dr. David is following from a nephrology standpoint. The attending physician is now Dr. Tejeda. Results - Labs CBC & BMP: 06/25/16 05:27 06/25/16 05:27
--- NOTE | 2016-06-25 13:10 | Gastrointestinal Progress Note ---
<CatMaria Elena Rebekah - Last Filed: 06/25/16 13:07> Assessment and Plan (1) Nausea Status: Acute Assessment and plan: 06/25-no complaints of nausea, overt bleeding, or abdominal pain. FOB tomorrow morning. Will consider tentative upper endoscopy prior to discharge if respiratory status continues to improve. Plan an addendum to followed by Dr. Lima. 06/22-no complaints of nausea, denies abdominal pain. Findings of profound anemia this morning with hemoglobin 4.8, INR 3.8. Reports of melena stools. To be transfused 4 units of packed cells as well as 2 more units of fresh frozen plasma. Plan an addendum to followed by Dr. Lima. 06/21-nausea improved without any vomiting. No abdominal pain. Found to have Clostridium difficile and oral vancomycin started. Tolerating small amounts of diet. Plan an addendum to follow by Dr. Lima. 06/19-Nausea continues, better controlled at present. Noted to have leukocytosis today, however also on steroid therapy. Afebrile. Plans and addendum to follow by Dr Lima. 06/18-Sudden onset of nausea, intractable vomiting with mid abdominal pain. No coffee ground/hematemesis. KUB shows gaseous distention of stomach, nondistended bowel. Last endoscopy years prior in [place], unable to recall findings. Will continue to monitor and plan tentative EGD when respiratory status improves if symptoms persist. Plan and addendum to follow by DR Lima. Current Visit: Yes Gastroenterology - PN: Subj Interval history: CC: Nausea, anemia Patient is seen awake and alert sitting up in bed eating lunch. States she is feeling some better at this time. Denies any abdominal pain or nausea. Denies any overt bleeding. Hemoglobin is holding at 9.2. She received a total of 4 units of packed red blood cells and 3 of fresh frozen plasma. INR is 1.2. She is scheduled for FOB tomorrow with Dr. Kingsley. ROS: Denies shortness of breath or chest pain Exam (Progress Note) - Constitutional Vitals: Period Temp Pulse Resp BP Sys/Maya Pulse Ox Last 24 Hr 97.7 F-98.2 F 74-100 14-93 119-163/46-90 89-97 General appearance: normal weight, no acute distress - Head Head exam: Present: normal inspection, normocephalic - Eye Eye exam: Present: other (Lids and conjunctive are unremarkable). Absent: scleral icterus - ENT ENT exam: Present: normal exam, normal oropharynx - Neck Neck exam: Present: normal inspection - Respiratory Respiratory exam: Present: clear to auscultation bilaterally. Absent: rales, rhonchi, wheezes - Cardiovascular Cardiovascular exam: Present: regular rate and rhythm. Absent: diastolic murmur , JVD, systolic murmur - GI/Abdominal GI/Abdominal exam: Present: normal bowel sounds, soft. Absent: ascites, distended, mass, organomegaly, tenderness - Extremities Exam Extremities exam: Present: normal inspection, full ROM - Back Exam Back exam: Present: normal inspection - Neurological Exam Neurological exam: Present: alert, oriented X3 - Psychiatric Psychiatric exam: Present: normal affect, normal mood - Skin Skin exam: Present: normal color, warm, dry Results - Labs CBC & BMP: 06/25/16 05:27 06/25/16 05:27 Lab Results: I have reviewed the past 24 hour labs <Harish Lima - Last Filed: 06/25/16 18:18> Exam (Progress Note) - Constitutional Vitals: Period Temp Pulse Resp BP Sys/Maya Pulse Ox Last 24 Hr 97.7 F-98.4 F 74-100 14-29 119-189/46-93 89-98 Results - Labs CBC & BMP: 06/25/16 05:27 06/25/16 05:27
[2016-06-25] MEDS: CEFEPIME 1,000 MG in SODIUM CHLORIDE 0.9% 100 ML IV SCH (14:48)
[2016-06-25] MEDS: PANTOPRAZOLE 40 MG VIAL IV SCH (21:14)
[2016-06-25] MEDS: GABAPENTIN 100 MG CAPSULE PO SCH (21:14)
[2016-06-26] MEDS: ALBUTEROL/IPRATROPIUM 3 ML NEB RESP TX SCH ×4 (00:52→20:04)
[2016-06-26] MEDS: traZODone 50 MG TABLET PO PRN ×2 (01:28→20:57)
[2016-06-26] MEDS: DEXTROSE 5% NACL 0.9% 1,000 ML IV SCH ×2 (01:52→14:42)
[2016-06-26] MEDS: PROMETHAZINE INJ 12.5 MG in SODIUM CHLORIDE 0.9% 50 ML IV PRN (01:52)
[2016-06-26] MEDS: metroNIDAZOLE INJ 500 MG in PREMIX 1 EACH IV SCH ×3 (01:52→17:39)
[2016-06-26] MEDS: VANCOMYCIN INJ 1,250 MG in SODIUM CHLORIDE 0.9% 250 ML IV SCH (02:59)
[2016-06-26 04:56] LABS: Basophils % 0.1 % (0.0-0.8); Eosinophils # 0.1 10*3/uL (0.0-0.87); Eosinophils % 0.5 % (0.00-10.9); Hematocrit 26.8 VOL% (35.7-47.0); Immature Granulocytes % 3.5 %; Immature Granulocytes Absolute 0.68 #; Lymphocytes # 1.7 10*3/uL (1.4-4.0); Lymphocytes % 8.6 % (21.3-54.2); Mean Corpuscular HGB Conc 33.6 GM/DL (32-36); Mean Corpuscular Hemoglobin 31 PG (27-34); Mean Corpuscular Volume 90.8 FL (87-102); Mean Platelet Volume 9.5 FL (9.6-12.0); Monocytes # 1.5 10*3/uL (0.11-0.8); Monocytes % 7.8 % (1.7-12.7); NRBC # 0.03 10*3/uL; Neutrophils # 15.5 10*3/uL (1.4-7.4); Neutrophils % 79.5 % (38.7-73.9); Platelet Count 174 T/CUMM (130-400); Red Blood Count 2.95 MC/CUMM (3.8-5.5); Red Cell Distribution Width 16.5 % (9.3-17.3); White Blood Count 19.5 T/CUMM (4-12)
[2016-06-26 05:02] LABS: INR 1.1; PT Patient Result 11.6 SECS; Partial Thromboplastin Time 23.6 SECS (0-40)
[2016-06-26 05:27] LABS: Albumin 2.4 G/DL (3.4-5.0); Bilirubin,Total 0.7 MG/DL (0.2-1.0); Calcium 7.8 MG/DL (8.5-10.1); Osmolality,Calculated 300.8 MOS/KG (273-304); Potassium 4.1 MMOL/L (3.5-5.1); Total Protein 4.5 G/DL (6.4-8.3)
[2016-06-26 05:28] LABS: Hypochromasia 1+; Lymphocytes 9 % (20-55); Ovalocytes Slight; Platelet Estimate Normal; Segmented Neutrophils 88 % (50-85); Total Cells Counted 100
[2016-06-26 05:29] LABS: Microcytosis 1+
--- NOTE | 2016-06-26 06:55 | XRay Report ---
Exam: XR chest 1V portable Date: 06/26/2016 4:00 AM Indication: Shortness of breath Comparison: 06/25/2016 Technical: AP portable Findings: Cardiomegaly is present with low volume left effusion. There is calcification of tracheobronchial tree. Small area of tubing is present over the right chest with external cardiac leads present. Vascular calcification of the aorta and carotid arteries present no pneumothorax. Impression: 1. Cardiomegaly with persistent bibasilar effusions atelectatic change left greater than right with underlying scarring. Tubing superimposes the right chest PROCEDURE INTERPRETED AT [facility] DEPARTMENT OF RADIOLOGY Final Report Signed by: Dr. Clay Aranda
[2016-06-26] MEDS: BUDESONIDE 0.5 MG/2 ML NEB RESP TX SCH ×2 (07:06→20:04)
--- NOTE | 2016-06-26 08:34 | Event Note ---
In hospital therapeutic and diagnostic fiberoptic bronchoscopy. Bilateral lavages from the right upper lung, right middle lung, right lower lung, left upper lung and left lower lung were sent for cytology, Gram stain, bacterial cultures, AFB stains and cultures, fungal stains and cultures. This 80-year-old white female with by basilar atelectasis and CT evidence of bronchiectasis and retention of secretions. Her cough is been ineffective. She has suffered from hypoxemia. For these reasons she is evaluated with fiberoptic bronchoscopy. The vocal cords were normal. Trachea was slightly deviated. The selena was sharp. The right mainstem bronchus was full of thick tenacious secretions that extended into the right upper lung, right middle lung, right lower lung. These were removed with lavage and suctioning from the endobronchial secretions as well as alveolar lavage. There was underlying erosive friable bronchitis which was especially prominent in the right middle lung and right lower lung. Specimens from these areas were sent for the studies listed above. I did not see any definite endobronchial cancer. Large and small airways have a moderate amount of collapsibility and is a good bit of endobronchial edema that appears to be secondary to chronic infection and possibly aspiration. The mucosa was friable everywhere I touched The left mainstem bronchus was occluded with thick tenacious secretions which extended into the left upper lung where there was a good bit of erosive friable bronchitis. These also extended into the left lower lung and again there was a tremendous amount of retention of secretions which required bronchial and alveolar lavage to remove. There was underlying friability and erythema of the bronchial mucosa. There was mild to moderate collapsibility of large and small airways. No endobronchial cancer was seen. Specimens from this area was sent for the studies noted above. The patient tolerated procedure well there were no complications. Impression. 1. Ineffective cough 2. Retention of secretions 3. Bronchiectasis 4. Bibasilar atelectasis 5. 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 6. See above Plan. 1. Check bronchoscopy specimens 2. Follow-up chest x-ray
[2016-06-26] MEDS: ONDANSETRON 4 MG/2 ML VIAL IV PRN (09:04)
[2016-06-26] MEDS: methylPREDNISolone 4 MG TABLET PO SCH (09:53)
[2016-06-26] MEDS: BACLOFEN 10 MG TABLET PO SCH ×2 (09:54→20:56)
[2016-06-26] MEDS: POLYVINYL ALCOHOL 1.4% OPH SOLN 15 ML BOTTLE BOTH EYES SCH ×3 (09:54→20:56)
[2016-06-26] MEDS: PANTOPRAZOLE 40 MG VIAL IV SCH ×2 (09:54→20:56)
[2016-06-26] MEDS: DESITIN 4OZ/NYSTATIN 15 GRAM MIXTURE PASTE TOP SCH ×2 (09:54→20:56)
[2016-06-26] MEDS: POLYETHYLENE GLYCOL POWDER 17 GM PACK PO SCH (09:54)
[2016-06-26] MEDS: VANCOMYCIN 50 MG/ML 60 ML/BOTTLE PO SCH ×4 (09:55→20:56)
[2016-06-26] MEDS ORDERED: methylPREDNISolone 4 MG TABLET PO SCH (11:02)
--- NOTE | 2016-06-26 11:03 | Pulmonology Progress Note ---
Pulmonary - PN: Subj Interval history: This 80-year-old white female whom I saw in pulmonary consultation on 06/18/2016. This patient had been transferred here from [facility] in [facility]. She had been short of breath and hypoxemic. My impressions were. 1. Acute right lower lung pneumonia probably improving 2. Possible aspiration secondary to nausea and vomiting 3. Possible dilated stomach. Intractable nausea and vomiting 4. Acute on chronic renal failure 5. Chronic anticoagulation. 6. History of chronic pain 7. High blood pressure 8. See past history 9. Hypokalemia 06/19/2016. Today's x-ray shows cardiomegaly and a resolving right lower lung infiltrate. Patient has increased interstitial markings in both upper lungs and in both bases. There are no positive cultures. Patient says she is breathing better and she is definitely on a lot less distress. White blood cell count was 13,900 with 91 segs. H&H is dropped to 10.5/32.4. Sodium is 144 potassium remains low at 3.0 on replacement protocol. Creatinine which was 1.6 at admission has now gone to 4.20 with a BUN of 9 I have come take in the liberty of consulting renal. D5 normal saline at 75 cc/h was started last night by me. INR is 3.2. I am holding Coumadin. I have continued Lovenox 40 mg once a day but we may need to stop this. Doppler venograms of the lower extremities have shown no evidence of deep venous thrombophlebitis. ABGs 06/18/2016. FiO2 40%. PH 7.51, PCO2 58.8, PO2 51.5. Bicarb 43.6 06/20/2016. Today's x-ray shows resolving right lower lung infiltrate and a resolving residual left lower lung infiltrate patient stools are positive for C. difficile. There are no positive cultures from the sputum's. Patient has stools which were positive for blood. Patient's Lovenox is being held. She has been off of Coumadin for several days. INR is now 5.7 have ordered 2 units of fresh frozen plasma. ABGs on FiO2 of 50% shows a pH 7.43, PCO2 of 57.3, PO2 is 69.0 and a bicarb of 35.3. Potassium is up to 3.2. Creatinine remains elevated 4.5 with a BUN of 141. White blood cell count is elevated at 16,800 with 90.6 segs. H&H is dropped to 9.4/27.6 and platelet count is 247,000. Natruretic peptide is 26. 06/21/2016. Patient's breathing seems much better today. Her diarrhea is nearly resolved. INR is dropped from 5.7-4.8. I am going to transfuse her with 2 units of fresh frozen plasma. Potassium is 3.3. Patient is on a replacement protocol. White count is 18,500 with 86 segs. H&H is 9.1/26.4. Platelets are 278,000. Chest x-ray will be repeated tomorrow. Creatinine has dropped from 4.50-2.20 with a BUN of 102. 06/26/2016. This patient was evaluated with fiberoptic bronchoscopy today. She has a tremendous amount of retained secretions. There was bilateral erosive friable bronchitis that looked like it was probably related to chronic infection and possibly related to aspiration. Specimens were sent for cytology , bacterial, AFB and fungal studies. Today's chest x-ray shot as a right lateral oblique. There is residual infiltrate and mild atelectasis in the right lower lung and there is residual infiltrate in the left lower lung. The trachea and mainstem bronchi are calcified. There are no positive cultures. Creatinine has dropped to 1.2 with a BUN of 51 and normal electrolytes. White blood cell count remains elevated at 19,500 with 79.5 segs 8.6 lymphs and 7.8 monocytes. INR is 1.1. H&H is 9.0/26.8. Patient has stabilized since transfusion given 06/22/2016. Patient is definitely stronger today. Solu- Medrol was changed to methylprednisolone 4 mg daily for 5 days. I really do not think this is enough and I have increased to 12 mg daily we may need to go back Solu-Medrol. Physical exam. Vital signs see below General. Patient is lying nearly flat in bed and breathing comfortably. She is in much less distress than she was before. Neurological. Cranial nerves are intact with decreased hearing acuity. There is some movement in all 4 extremities. Face. Symmetrical. Lips and tongue are normal. Neck. Symmetrical. No meningismus. Lymphatics. No submandibular cervical supraclavicular or epitrochlear adenopathy. Chest. Mild tracheal and large airway wheeze have resolved.. No high-pitched peripheral wheezes. No chest wall tenderness Heart. No gallop Abdomen. Only a very rare bowel sound. Extremities. Chronic venous stasis of the lower extremities with no edema. Skin of the face and hands show no cancerous infectious lesions. No other areas of skin were examined. The remainder the physical exam is negative Plan. 06/18/2016. 1. Sputum for Gram stain culture and sensitivity, cold agglutinins, Legionella titer 2. Decrease Levaquin from 750 mg daily to 250 mg daily 3. In the face of acute on chronic renal failure discontinue losartan and hydrochlorothiazide 4. Potassium replacement. IV fluids with D5 normal saline at 75 cc/h 5. Hold Coumadin. INR is 2.3. Continue Lovenox 40 daily but consider stopping it tomorrow morning depending on the INR .daily INR 6. Doppler venograms of the lower extremities 7. Solu-Medrol 40 IV push twice a day to cover for the possibility of aspiration injury. 8. Daily lab and chest x-ray. 9. ABGs are pending 10. See orders 11. 06/19/2016. Continue present pulmonary treatment. Follow-up chest x-rays and ABGs. Note patient is a CO2 retainer. Daily INR. May have to stop Lovenox. See my note from 06/19/2016 11. 06/20/2016. See my note above. Patient is on Flagyl for C. difficile GI infection. She is on additional antibiotics for bibasilar pneumonia. She is a CO2 retainer. She is over anticoagulated fresh frozen plasma has been ordered. There is a drop in her H&H. Renal failure continues to worsen. 12. 06/21/2016. See today's note above. Continue antibiotics. Follow-up chest x-ray tomorrow. Marked improvement and kidney status. 13. 06/26/2016. See my note above. Increase methylprednisolone until I decrease it. Check fiberoptic bronchoscopy specimens. Follow-up chest x-ray and lab. Exam (Progress Note) - Constitutional Vitals: Period Temp Pulse Resp BP Sys/Maya Pulse Ox Last 24 Hr 97.7 F-98.8 F 70-102 14-26 129-189/39-114 88-98 Results - Labs CBC & BMP: 06/26/16 04:42 06/26/16 04:42
--- NOTE | 2016-06-26 11:34 | Gastrointestinal Progress Note ---
<Maria Elena Shelton - Last Filed: 06/26/16 11:32> Assessment and Plan (1) Nausea Status: Acute Assessment and plan: 06/26-No c/o nausea. Tolerating diet at present time. Hgb stable at 9. Continue to monitor and plan EGD when pt resp status is improved. Plan and addendum to follow by DR Lima. 06/25-no complaints of nausea, overt bleeding, or abdominal pain. FOB tomorrow morning. Will consider tentative upper endoscopy prior to discharge if respiratory status continues to improve. Plan an addendum to followed by Dr. Lima. 06/22-no complaints of nausea, denies abdominal pain. Findings of profound anemia this morning with hemoglobin 4.8, INR 3.8. Reports of melena stools. To be transfused 4 units of packed cells as well as 2 more units of fresh frozen plasma. Plan an addendum to followed by Dr. Lima. 06/21-nausea improved without any vomiting. No abdominal pain. Found to have Clostridium difficile and oral vancomycin started. Tolerating small amounts of diet. Plan an addendum to follow by Dr. Lima. 06/19-Nausea continues, better controlled at present. Noted to have leukocytosis today, however also on steroid therapy. Afebrile. Plans and addendum to follow by Dr Lima. 06/18-Sudden onset of nausea, intractable vomiting with mid abdominal pain. No coffee ground/hematemesis. KUB shows gaseous distention of stomach, nondistended bowel. Last endoscopy years prior in [place], unable to recall findings. Will continue to monitor and plan tentative EGD when respiratory status improves if symptoms persist. Plan and addendum to follow by DR Lima. Current Visit: Yes Gastroenterology - PN: Subj Interval history: CC: Dysphagia Pt is seen awake and alert following FOB this morning. She is noted to have findings of erosive friable bronchitis. She states she feels she is breathing better at this time. Abdomen is soft, nontender. She is tolerating her diet at present time. Hemoglobin is holding at 9 without overt bleeding. INR 1.1. ROS: Denies SOB or chest pain Exam (Progress Note) - Constitutional Vitals: Period Temp Pulse Resp BP Sys/Maya Pulse Ox Last 24 Hr 97.7 F-98.8 F 70-102 14-26 128-189/39-114 88-98 General appearance: normal weight, no acute distress - Head Head exam: Present: normal inspection, normocephalic - Eye Eye exam: Present: other (lids and conjunctiva unremarkable). Absent: scleral icterus - ENT ENT exam: Present: normal exam, normal oropharynx - Neck Neck exam: Present: normal inspection - Respiratory Respiratory exam: Present: clear to auscultation bilaterally. Absent: rales, rhonchi, wheezes - Cardiovascular Cardiovascular exam: Present: regular rate and rhythm. Absent: diastolic murmur , JVD, systolic murmur - GI/Abdominal GI/Abdominal exam: Present: normal bowel sounds, soft. Absent: ascites, distended, mass, organomegaly, tenderness - Extremities Exam Extremities exam: Present: normal inspection, full ROM - Back Exam Back exam: Present: normal inspection - Neurological Exam Neurological exam: Present: alert, oriented X3 - Psychiatric Psychiatric exam: Present: normal affect, normal mood - Skin Skin exam: Present: normal color, warm Results - Labs CBC & BMP: 06/26/16 04:42 06/26/16 04:42 Lab Results: I have reviewed the past 24 hour labs <Harish Lima - Last Filed: 06/26/16 23:01> Exam (Progress Note) - Constitutional Vitals: Period Temp Pulse Resp BP Sys/Maya Pulse Ox Last 24 Hr 97.7 F-98.2 F 70-102 12-06 128-176/54-114 88-98 Results - Labs CBC & BMP: 06/26/16 04:42 06/26/16 04:42
--- NOTE | 2016-06-26 11:55 | Hospitalist Progress Note ---
Assessment and Plan (1) Pneumonia Status: Acute Assessment and plan: Continue iv vancomycin and cefepime Bronch today by pulmonary Current Visit: Yes Qualifiers: Pneumonia type: due to unspecified organism Laterality: bilateral Lung location: lower lobe of lung Qualified Code(s): J18.9 - Pneumonia, unspecified organism (2) PAPO (acute kidney injury) Status: Acute Assessment and plan: Improved Current Visit: Yes (3) C. difficile colitis Status: Acute Assessment and plan: Po vanc and IV flagyl Current Visit: Yes (4) GI bleed Status: Acute Assessment and plan: GI following Further work-up once patient improves Current Visit: Yes Qualifiers: GI bleed type/associated pathology: unspecified peptic ulcer Qualified Code (s): K27.4 - Chronic or unspecified peptic ulcer, site unspecified, with hemorrhage Hospitalist: Subjective Interval history: No acute events overnight. Leukocytosis basically unchanged. Patient has not been receiving her po vanc for the past few days. Restarting today, also on iv flagyl. Today she complains of pain all over, no area worse than the other areas. Bronch today. Exam - Constitutional Vitals: Period Temp Pulse Resp BP Sys/Maya Pulse Ox Last 24 Hr 97.7 F-98.8 F 70-102 14-26 128-189/39-114 88-98 General appearance: normal weight - Head Head exam: Present: normocephalic, atraumatic - Eye Eye exam: Present: EOMI Pupils: Present: LISBET - ENT ENT exam: Present: normal exam - Neck Neck exam: Present: normal inspection - Respiratory Respiratory exam: Present: clear to auscultation bilaterally. Absent: rhonchi, wheezes - Cardiovascular Cardiovascular exam: Present: regular rate and rhythm - GI/Abdominal GI/Abdominal exam: Present: normal bowel sounds, soft. Absent: tenderness, rebound - Extremities Exam Extremities exam: Present: normal inspection - Back Exam Back exam: Present: normal inspection - Neurological Exam Neurological exam: Present: alert - Psychiatric Psychiatric exam: Present: normal affect, normal mood - Skin Skin exam: Present: warm, intact Results - Labs CBC & BMP: 06/26/16 04:42 06/26/16 04:42
[2016-06-26] MEDS ORDERED: methylPREDNISolone 4 MG TABLET PO ONE (12:00)
[2016-06-26] MEDS: CEFEPIME 1,000 MG in SODIUM CHLORIDE 0.9% 100 ML IV SCH (14:41)
[2016-06-26] MEDS: GABAPENTIN 100 MG CAPSULE PO SCH (20:56)
[2016-06-26] MEDS: clonazePAM 0.5 MG TABLET PO PRN (20:57)
[2016-06-27] MEDS: metroNIDAZOLE INJ 500 MG in PREMIX 1 EACH IV SCH ×3 (02:32→17:14)
[2016-06-27] MEDS: VANCOMYCIN INJ 1,250 MG in SODIUM CHLORIDE 0.9% 250 ML IV SCH (03:17)
[2016-06-27] MEDS: ALBUTEROL/IPRATROPIUM 3 ML NEB RESP TX SCH ×4 (05:21→19:45)
[2016-06-27 05:27] LABS: Basophils % 0.1 % (0.0-0.8); Eosinophils # 0.5 10*3/uL (0.0-0.87); Eosinophils % 2.9 % (0.00-10.9); Hematocrit 26.7 VOL% (35.7-47.0); Immature Granulocytes Absolute 0.48 #; Lymphocytes # 1.8 10*3/uL (1.4-4.0); Mean Corpuscular HGB Conc 33.7 GM/DL (32-36); Mean Corpuscular Hemoglobin 31 PG (27-34); Mean Corpuscular Volume 91.8 FL (87-102); Mean Platelet Volume 9.5 FL (9.6-12.0); Monocytes # 1.4 10*3/uL (0.11-0.8); Monocytes % 8.4 % (1.7-12.7); Neutrophils # 11.9 10*3/uL (1.4-7.4); Neutrophils % 74.6 % (38.7-73.9); Platelet Count 182 T/CUMM (130-400); Red Blood Count 2.91 MC/CUMM (3.8-5.5); Red Cell Distribution Width 16.4 % (9.3-17.3)
[2016-06-27 06:02] LABS: Albumin 2.2 G/DL (3.4-5.0); Bilirubin,Total 0.8 MG/DL (0.2-1.0); Calcium 7.4 MG/DL (8.5-10.1); Total Protein 4.3 G/DL (6.4-8.3)
[2016-06-27 06:03] LABS: Osmolality,Calculated 291.1 MOS/KG (273-304); Potassium 3.7 MMOL/L (3.5-5.1)
--- NOTE | 2016-06-27 06:34 | XRay Report ---
Exam: XR chest 1V portable Date: 06/27/2016 4:00 AM Indication: Pneumonia post bronchoscopy Comparison: None Technical: AP portable Findings: Cardiomegaly present with low volume left effusion. There is calcification in tracheobronchial tree and reticular nodular densities present and scarring in the lung redmond. Tubing superimposes the right chest and external cardiac leads are present. No pneumothorax. Degenerative change present thoracic spine. Impression: 1. Cardiomegaly with component of cardiac decompensation and low volume effusion 2. Underlying COPD and fibrotic scarring 3. No significant interval change with tubing superimposing the right chest PROCEDURE INTERPRETED AT [facility] DEPARTMENT OF RADIOLOGY Final Report Signed by: Dr. Clay Aranda
[2016-06-27] MEDS: BUDESONIDE 0.5 MG/2 ML NEB RESP TX SCH ×2 (06:50→19:46)
[2016-06-27] MEDS: POTASSIUM CHLORIDE 20 MEQ TABLET PO PRN (08:29)
[2016-06-27] MEDS: BACLOFEN 10 MG TABLET PO SCH ×2 (08:30→21:46)
[2016-06-27] MEDS: POLYVINYL ALCOHOL 1.4% OPH SOLN 15 ML BOTTLE BOTH EYES SCH ×3 (08:30→21:47)
[2016-06-27] MEDS: methylPREDNISolone 4 MG TABLET PO SCH (08:31)
[2016-06-27] MEDS: PANTOPRAZOLE 40 MG VIAL IV SCH ×2 (08:31→21:46)
[2016-06-27] MEDS: POLYETHYLENE GLYCOL POWDER 17 GM PACK PO SCH (08:31)
[2016-06-27] MEDS: VANCOMYCIN 50 MG/ML 60 ML/BOTTLE PO SCH ×4 (08:32→21:45)
[2016-06-27] MEDS: DESITIN 4OZ/NYSTATIN 15 GRAM MIXTURE PASTE TOP SCH ×2 (08:32→21:46)
[2016-06-27] MEDS: CEFEPIME 1,000 MG in SODIUM CHLORIDE 0.9% 100 ML IV SCH ×2 (08:56→22:44)
--- NOTE | 2016-06-27 10:41 | Hospitalist Progress Note ---
Assessment and Plan (1) Pneumonia Status: Acute Assessment and plan: Continue iv vancomycin and cefepime Bronch yesterday with retained secretions Pulmonary assisting Current Visit: Yes Qualifiers: Pneumonia type: due to unspecified organism Laterality: bilateral Lung location: lower lobe of lung Qualified Code(s): J18.9 - Pneumonia, unspecified organism (2) PAPO (acute kidney injury) Status: Acute Assessment and plan: Within normal limits today Nephrology assisting Current Visit: Yes (3) C. difficile colitis Status: Acute Assessment and plan: Po vanc and IV flagyl Diarrhea improving Current Visit: Yes (4) GI bleed Status: Acute Assessment and plan: GI following Further work-up once patient's respiratory status is amendable. Current Visit: Yes Qualifiers: GI bleed type/associated pathology: unspecified peptic ulcer Qualified Code (s): K27.4 - Chronic or unspecified peptic ulcer, site unspecified, with hemorrhage Hospitalist: Subjective Interval history: No acute events overnight. Patient with no complaints today. Diarrhea is improving, none overnight. Continue treatment for C.diff. Leukocytosis improving today. Bronch yesterday with retained secretions. Pulmonary assisting. Renal function has returned to normal. Will transfer to the floor today. Exam - Constitutional Vitals: Period Temp Pulse Resp BP Sys/Maya Pulse Ox Last 24 Hr 97.5 F-98.5 F 65-94 7-22 128-177/54-80 87-97 General appearance: over weight - Head Head exam: Present: normocephalic, atraumatic - Eye Eye exam: Present: EOMI Pupils: Present: LISBET - ENT ENT exam: Present: normal exam - Neck Neck exam: Present: normal inspection - Respiratory Respiratory exam: Present: clear to auscultation bilaterally. Absent: wheezes - Cardiovascular Cardiovascular exam: Present: regular rate and rhythm - GI/Abdominal GI/Abdominal exam: Present: normal bowel sounds, soft. Absent: tenderness, rebound - Extremities Exam Extremities exam: Present: normal inspection - Back Exam Back exam: Present: normal inspection - Neurological Exam Neurological exam: Present: alert - Psychiatric Psychiatric exam: Present: normal affect, normal mood - Skin Skin exam: Present: warm, intact Results - Labs CBC & BMP: 06/27/16 05:12 06/27/16 05:12
--- NOTE | 2016-06-27 11:29 | Pulmonology Progress Note ---
Pulmonary - PN: Subj Interval history: Cornell Bailey, ANP-BC, GNP-BC, acting as scribe for Dr. Clay Kingsley This 80-year-old white female who we saw in initial pulmonary consultation on 06/18/2016. This patient had been transferred here from [facility] in [place], [place]. She had been short of breath and hypoxemic. At the time of our initial consultation, our impressions were: 1. Acute right lower lung pneumonia probably improving 2. Possible aspiration secondary to nausea and vomiting 3. Possible dilated stomach. Intractable nausea and vomiting 4. Acute on chronic renal failure 5. Chronic anticoagulation. 6. History of chronic pain 7. High blood pressure 8. See past history 9. Hypokalemia 06/19/2016. Today's x-ray shows cardiomegaly and a resolving right lower lung infiltrate. Patient has increased interstitial markings in both upper lungs and in both bases. There are no positive cultures. Patient says she is breathing better and she is definitely on a lot less distress. White blood cell count was 13,900 with 91 segs. H&H is dropped to 10.5/32.4. Sodium is 144 potassium remains low at 3.0 on replacement protocol. Creatinine which was 1.6 at admission has now gone to 4.20 with a BUN of 9 I have come take in the liberty of consulting renal. D5 normal saline at 75 cc/h was started last night by me. INR is 3.2. I am holding Coumadin. I have continued Lovenox 40 mg once a day but we may need to stop this. Doppler venograms of the lower extremities have shown no evidence of deep venous thrombophlebitis. ABGs 06/18/2016. FiO2 40%. PH 7.51, PCO2 58.8, PO2 51.5. Bicarb 43.6 06/20/2016. Today's x-ray shows resolving right lower lung infiltrate and a resolving residual left lower lung infiltrate patient stools are positive for C. difficile. There are no positive cultures from the sputum's. Patient has stools which were positive for blood. Patient's Lovenox is being held. She has been off of Coumadin for several days. INR is now 5.7 have ordered 2 units of fresh frozen plasma. ABGs on FiO2 of 50% shows a pH 7.43, PCO2 of 57.3, PO2 is 69.0 and a bicarb of 35.3. Potassium is up to 3.2. Creatinine remains elevated 4.5 with a BUN of 141. White blood cell count is elevated at 16,800 with 90.6 segs. H&H is dropped to 9.4/27.6 and platelet count is 247,000. Natruretic peptide is 26. 06/21/2016. Patient's breathing seems much better today. Her diarrhea is nearly resolved. INR is dropped from 5.7-4.8. I am going to transfuse her with 2 units of fresh frozen plasma. Potassium is 3.3. Patient is on a replacement protocol. White count is 18,500 with 86 segs. H&H is 9.1/26.4. Platelets are 278,000. Chest x-ray will be repeated tomorrow. Creatinine has dropped from 4.50-2.20 with a BUN of 102. 06/22/2016. The patient has been moved to intensive care this morning secondary to severe anemia with a hematocrit of 14.6. Melena stool noted by floor nurse this morning. She is to be transfused 4 units of packed red blood cells. She is also supposed to get 1 more unit of fresh frozen plasma. Patient has not been on her Plavix. She has already received 4 units of fresh frozen plasma over the past 2 days. INR today is 3.8. Certainly, her respiratory status has been affected secondary to her severe anemia. She is remaining on 50% facemask and is maintaining her oxygen saturations. Her known right lower lung infiltrate is improving slowly. 06/25/2016. The patient remains in intensive care. Since admission, the patient has been transfused 4 units of blood and 5 units of fresh frozen plasma. H&H today is 9.2/27.4. CT of the chest done 06/23/16 showed bronchial calcification and bronchiectasis of both lungs most prominent extending into the left lower lung and and there was left lower lung airspace density. Small amount of similar changes were seen on the right. Many of the bronchi were partially occupied by mucosal density. The patient is stable enough to proceed with FOB, so this will be scheduled for tomorrow morning at 0800 at bedside. 06/26/2016. This patient was evaluated with fiberoptic bronchoscopy today. She has a tremendous amount of retained secretions. There was bilateral erosive friable bronchitis that looked like it was probably related to chronic infection and possibly related to aspiration. Specimens were sent for cytology , bacterial, AFB and fungal studies. Today's chest x-ray shot as a right lateral oblique. There is residual infiltrate and mild atelectasis in the right lower lung and there is residual infiltrate in the left lower lung. The trachea and mainstem bronchi are calcified. There are no positive cultures. Creatinine has dropped to 1.2 with a BUN of 51 and normal electrolytes. White blood cell count remains elevated at 19,500 with 79.5 segs 8.6 lymphs and 7.8 monocytes. INR is 1.1. H&H is 9.0/26.8. Patient has stabilized since transfusion given 06/22/2016. Patient is definitely stronger today. Solu- Medrol was changed to methylprednisolone 4 mg daily for 5 days. I really do not think this is enough and I have increased to 12 mg daily we may need to go back Solu-Medrol. 06/27/16. The patient underwent FOB yesterday. Lavage gram stain showed few gram positive cocci, few gram positive rods, moderate fungal elements, and moderate white blood cells. Culture is pending. There was no AFB seen on smears and culture is pending. There were few fungal elements seen on fungal smear. That culture is, of course, pending as well. She states that she is feeling better today. She is more easily able to mobilize her secretions, but continues to have LAW congestion. We will start Pulmozyme BID. She is central line replacement today. Medications have been reviewed. We started Pulmozyme today. Labs have been reviewed. White count is 16,000 with 74.6% segs; H&H 9.0/26.7; PLT count 182,000; creatinine has improved to 1.00, BUN 38, electrolytes are normal Exam (Progress Note) - Constitutional Vitals: Period Temp Pulse Resp BP Sys/Maya Pulse Ox Last 24 Hr 97.5 F-98.5 F 65-94 7-22 140-177/54-80 87-97 Exam: Chest is wheeze free, expiration is prolonged and incomplete; note, previously noted mild tracheal airway wheezes have resolved Heart no gallop Abdomen is nontender and nondistended; bowel sounds are positive 4 Extremities with nothing to suggest acute deep venous thrombophlebitis Psychiatric awake and oriented Neurologic long tract motor function is intact Plan: Continue present pulmonary medications. Follow up FOB culture results when available. Start Pulmozyme today. Recheck ABGs today. Continue daily labs. Chest x-ray in the morning. Dr. Lima is following from a GI standpoint. Dr. David is following from a nephrology standpoint. The attending physician is now Dr. Altamirano. Results - Labs CBC & BMP: 06/27/16 05:12 06/27/16 05:12
[2016-06-27] MEDS: DORNASE ALFA 2.5 MG/2.5 ML VIAL RESP TX SCH ×2 (11:31→19:53)
[2016-06-27 12:05] LABS: ABG Base Excess 1.6 MMOL/L (-2.5-2.5); ABG HCO3 25.7 MMOL/L (20-26); ABG Oxygen Saturation 89.5 % (95-100); ABG PCO2 35.9 MM HG (35-48); ABG PH 7.456 (7.35-7.45); ABG PO2 55.4 MM HG (80-95)
[2016-06-27 12:06] LABS: Allen Test Positive
[2016-06-27] MEDS: DEXTROSE 5% NACL 0.9% 1,000 ML IV SCH ×2 (13:00→14:19)
[2016-06-27] MEDS ORDERED: HEPARIN 5,000 UNIT/1 ML VIAL ONE (15:17)
[2016-06-27] MEDS ORDERED: HEPARIN 1,000 UNIT/1 ML VIAL ONE (15:20)
[2016-06-27] MEDS ORDERED: HEPARIN/NACL 0.9% 2 UNITS/ML 0 ML IV ONE (15:21)
--- NOTE | 2016-06-27 15:56 | Operative Note ---
Date of procedure: 06/27/16 Pre-op diagnosis: Malposition of central venous catheter Post-op diagnosis: same Procedure: Procedure performed: Repositioning of right internal jugular triple-lumen catheter under fluoroscopy Procedure in detail: After informed consent was obtained the patient was taken to the operating suite and placed supine on the table. The right neck was prepped and draped in usual sterile fashion including the existing catheter. After procedural pause fluoroscopy brought onto the field and a guidewire was placed through the distal port of the triple lumen catheter. The catheter and guidewire were withdrawn until they were in the right internal jugular vein. The guidewire was then advanced down into the superior vena cava followed by the catheter. The guidewire was removed. Catheter withdrew and flushed easily and was locked with saline. Dressings were reapplied and the patient tolerated the procedure well. She was transferred to the floor in stable condition. Anesthesia: none Surgeon / Physician: Maxx Galvin Estimated blood loss: none Specimens: none sent Condition: stable Disposition: floor Results - Labs CBC & BMP: 06/27/16 05:12 06/27/16 05:12 Discharge Plan - Discharge Medications No Action Acetaminophen Tab [Tylenol Tab] 1,000 mg PO Q8HR PRN MDD 3GM/24HRS PRN Reason: Fever, Headache, Mild Pain Baclofen [Baclofen] 10 mg PO BID clonazePAM [Clonazepam] 0.5 mg PO BID Clopidogrel [Plavix] 75 mg PO DAILY Dimenhydrinate Solution 1 ml IJ Q4H PRN PRN Reason: Nausea/Vomiting dimenhyDRINATE [Dramamine Chew Tab] 50 mg PO Q4H PRN PRN Reason: Nausea/Vomiting Docusate Sodium 100 mg PO BID Gabapentin [Gabapentin] 100 mg PO 2100 guaiFENesin [Cough Syrup] 100 mg PO QID PRN PRN Reason: Cough Losartan/Hydrochlorothiazide [Losartan-Hctz 100-25 mg Tab] 1 each PO 0900 Mirtazapine [Mirtazapine] 15 mg PO QOTHER DAY Omeprazole [Prilosec] 20 mg PO DAILY Polyethylene Glycol Powder [Miralax] 8.5 gm PO 0900 Polyvinyl Alcohol 1.4% Oph Amber [Artificial Tears Oph Soln] 1 drop BOTH EYES TID Pravastatin [Pravachol] 40 mg PO DAILY Tiotropium Inhalation [Spiriva Handihaler] 18 mcg INH DAILY Warfarin Sodium [Warfarin Sodium] 3 mg PO 2100 Albuterol/Ipratropium Neb [Duoneb] 3 ml RESP TX RT Q6H PRN PRN Reason: Shortness Of Breath/Wheezing Phenol 1.4% Throat Ira [Chloraseptic Ira] 2 - 3 spray PO Q2H PRN PRN Reason: Sore Throat Cholecalciferol (Vitamin D3) [Vitamin D3] 2,000 unit PO 0900 dilTIAZem HCl [Diltiazem ER] 240 mg PO 0900 diphenhydrAMINE HCl [diphenhydrAMINE Cap] 50 mg PO Q6H PRN PRN Reason: Pruritis Hydrocodone Bitartrate [Zohydro ER] 30 mg PO 0600,1800 Mirtazapine [Remeron] 30 mg PO QOTHER DAY Potassium Chloride Cap/Tab [K Dur] 20 meq PO DAILY - Follow Up or Referral - Forms/Instructions
[2016-06-27] MEDS: hydroCHLOROthiazide 12.5 MG CAPSULE PO SCH (17:14)
[2016-06-27] MEDS: GABAPENTIN 100 MG CAPSULE PO SCH (21:45)
[2016-06-27] MEDS: traZODone 50 MG TABLET PO PRN (21:45)
[2016-06-27] MEDS: clonazePAM 0.5 MG TABLET PO PRN (21:45)
[2016-06-28] MEDS: ALBUTEROL/IPRATROPIUM 3 ML NEB RESP TX SCH ×5 (00:34→20:18)
[2016-06-28] MEDS: PROMETHAZINE INJ 12.5 MG in SODIUM CHLORIDE 0.9% 50 ML IV PRN ×2 (01:16→22:39)
[2016-06-28] MEDS: metroNIDAZOLE INJ 500 MG in PREMIX 1 EACH IV SCH (01:20)
[2016-06-28 03:12] LABS: Basophils % 0.1 % (0.0-0.8); Eosinophils # 0.3 10*3/uL (0.0-0.87); Hematocrit 27.7 VOL% (35.7-47.0); Hemoglobin 9.6 GM/DL (12.0-16.0); Immature Granulocytes % 2.1 %; Immature Granulocytes Absolute 0.32 #; Lymphocytes # 1.9 10*3/uL (1.4-4.0); Mean Corpuscular HGB Conc 34.7 GM/DL (32-36); Mean Corpuscular Hemoglobin 31 PG (27-34); Mean Corpuscular Volume 89.9 FL (87-102); Mean Platelet Volume 9.4 FL (9.6-12.0); Monocytes # 1.4 10*3/uL (0.11-0.8); Monocytes % 9.3 % (1.7-12.7); Neutrophils # 10.9 10*3/uL (1.4-7.4); Neutrophils % 73.5 % (38.7-73.9); Platelet Count 193 T/CUMM (130-400); Red Blood Count 3.08 MC/CUMM (3.8-5.5); Red Cell Distribution Width 15.9 % (9.3-17.3); White Blood Count 14.9 T/CUMM (4-12)
[2016-06-28 03:22] LABS: INR 1.1
[2016-06-28] MEDS: VANCOMYCIN INJ 1,250 MG in SODIUM CHLORIDE 0.9% 250 ML IV SCH (03:23)
[2016-06-28] MEDS: DEXTROSE 5% NACL 0.9% 1,000 ML IV SCH ×2 (03:25→21:50)
[2016-06-28 03:34] LABS: Calcium 7.7 MG/DL (8.5-10.1); Magnesium 1.3 MG/DL (1.8-2.4); Osmolality,Calculated 288.1 MOS/KG (273-304); Potassium 3.6 MMOL/L (3.5-5.1)
--- NOTE | 2016-06-28 07:10 | XRay Report ---
Exam: XR chest 1V portable Date: 06/28/2016 4:00 AM Indication: Pneumonia Comparison: 06/27/2016 Findings: Cardiomegaly is present. A right-sided catheter is present. Low volume left effusion and atelectatic change present and scarring in the lung redmond bilaterally. Degenerative change present thoracic spine. ASVD is present. No pneumothorax. Calcification in tracheobronchial tree present. Impression: 1. Cardiomegaly with low volume left effusion and bibasilar atelectatic change superimposed on chronic lung disease and scarring 2. Right sided catheter. PROCEDURE INTERPRETED AT [facility] DEPARTMENT OF RADIOLOGY Final Report Signed by: Dr. Clay Aranda
[2016-06-28] MEDS: BUDESONIDE 0.5 MG/2 ML NEB RESP TX SCH ×2 (07:50→20:18)
[2016-06-28] MEDS: DORNASE ALFA 2.5 MG/2.5 ML VIAL RESP TX SCH ×2 (08:00→20:18)
[2016-06-28] MEDS: PANTOPRAZOLE 40 MG VIAL IV SCH ×2 (09:02→22:38)
[2016-06-28] MEDS: BACLOFEN 10 MG TABLET PO SCH ×2 (09:02→21:42)
[2016-06-28] MEDS: POLYVINYL ALCOHOL 1.4% OPH SOLN 15 ML BOTTLE BOTH EYES SCH ×3 (09:03→21:42)
[2016-06-28] MEDS: DILTIAZEM CD 240 MG CAPSULE PO SCH (09:03)
[2016-06-28] MEDS: methylPREDNISolone 4 MG TABLET PO SCH (09:03)
[2016-06-28] MEDS: hydroCHLOROthiazide 12.5 MG CAPSULE PO SCH (09:03)
[2016-06-28] MEDS: VANCOMYCIN 50 MG/ML 60 ML/BOTTLE PO SCH (09:04)
[2016-06-28] MEDS: DESITIN 4OZ/NYSTATIN 15 GRAM MIXTURE PASTE TOP SCH ×2 (09:04→22:54)
[2016-06-28] MEDS: POLYETHYLENE GLYCOL POWDER 17 GM PACK PO SCH (09:04)
[2016-06-28] MEDS: CEFEPIME 1,000 MG in SODIUM CHLORIDE 0.9% 100 ML IV SCH (09:55)
--- NOTE | 2016-06-28 10:11 | Pulmonology Progress Note ---
Pulmonary - PN: Subj Interval history: This 80-year-old white female who we saw in initial pulmonary consultation on 06/18/2016. This patient had been transferred here from [facility] in [place], [place]. She had been short of breath and hypoxemic. At the time of our initial consultation, our impressions were: 1. Acute right lower lung pneumonia probably improving 2. Possible aspiration secondary to nausea and vomiting 3. Possible dilated stomach. Intractable nausea and vomiting 4. Acute on chronic renal failure 5. Chronic anticoagulation. 6. History of chronic pain 7. High blood pressure 8. See past history 9. Hypokalemia 06/19/2016. Today's x-ray shows cardiomegaly and a resolving right lower lung infiltrate. Patient has increased interstitial markings in both upper lungs and in both bases. There are no positive cultures. Patient says she is breathing better and she is definitely on a lot less distress. White blood cell count was 13,900 with 91 segs. H&H is dropped to 10.5/32.4. Sodium is 144 potassium remains low at 3.0 on replacement protocol. Creatinine which was 1.6 at admission has now gone to 4.20 with a BUN of 9 I have come take in the liberty of consulting renal. D5 normal saline at 75 cc/h was started last night by me. INR is 3.2. I am holding Coumadin. I have continued Lovenox 40 mg once a day but we may need to stop this. Doppler venograms of the lower extremities have shown no evidence of deep venous thrombophlebitis. ABGs 06/18/2016. FiO2 40%. PH 7.51, PCO2 58.8, PO2 51.5. Bicarb 43.6 06/20/2016. Today's x-ray shows resolving right lower lung infiltrate and a resolving residual left lower lung infiltrate patient stools are positive for C. difficile. There are no positive cultures from the sputum's. Patient has stools which were positive for blood. Patient's Lovenox is being held. She has been off of Coumadin for several days. INR is now 5.7 have ordered 2 units of fresh frozen plasma. ABGs on FiO2 of 50% shows a pH 7.43, PCO2 of 57.3, PO2 is 69.0 and a bicarb of 35.3. Potassium is up to 3.2. Creatinine remains elevated 4.5 with a BUN of 141. White blood cell count is elevated at 16,800 with 90.6 segs. H&H is dropped to 9.4/27.6 and platelet count is 247,000. Natruretic peptide is 26. 06/21/2016. Patient's breathing seems much better today. Her diarrhea is nearly resolved. INR is dropped from 5.7-4.8. I am going to transfuse her with 2 units of fresh frozen plasma. Potassium is 3.3. Patient is on a replacement protocol. White count is 18,500 with 86 segs. H&H is 9.1/26.4. Platelets are 278,000. Chest x-ray will be repeated tomorrow. Creatinine has dropped from 4.50-2.20 with a BUN of 102. 06/22/2016. The patient has been moved to intensive care this morning secondary to severe anemia with a hematocrit of 14.6. Melena stool noted by floor nurse this morning. She is to be transfused 4 units of packed red blood cells. She is also supposed to get 1 more unit of fresh frozen plasma. Patient has not been on her Plavix. She has already received 4 units of fresh frozen plasma over the past 2 days. INR today is 3.8. Certainly, her respiratory status has been affected secondary to her severe anemia. She is remaining on 50% facemask and is maintaining her oxygen saturations. Her known right lower lung infiltrate is improving slowly. 06/25/2016. The patient remains in intensive care. Since admission, the patient has been transfused 4 units of blood and 5 units of fresh frozen plasma. H&H today is 9.2/27.4. CT of the chest done 06/23/16 showed bronchial calcification and bronchiectasis of both lungs most prominent extending into the left lower lung and and there was left lower lung airspace density. Small amount of similar changes were seen on the right. Many of the bronchi were partially occupied by mucosal density. The patient is stable enough to proceed with FOB, so this will be scheduled for tomorrow morning at 0800 at bedside. 06/26/2016. This patient was evaluated with fiberoptic bronchoscopy today. She has a tremendous amount of retained secretions. There was bilateral erosive friable bronchitis that looked like it was probably related to chronic infection and possibly related to aspiration. Specimens were sent for cytology , bacterial, AFB and fungal studies. Today's chest x-ray shot as a right lateral oblique. There is residual infiltrate and mild atelectasis in the right lower lung and there is residual infiltrate in the left lower lung. The trachea and mainstem bronchi are calcified. There are no positive cultures. Creatinine has dropped to 1.2 with a BUN of 51 and normal electrolytes. White blood cell count remains elevated at 19,500 with 79.5 segs 8.6 lymphs and 7.8 monocytes. INR is 1.1. H&H is 9.0/26.8. Patient has stabilized since transfusion given 06/22/2016. Patient is definitely stronger today. Solu- Medrol was changed to methylprednisolone 4 mg daily for 5 days. I really do not think this is enough and I have increased to 12 mg daily we may need to go back Solu-Medrol. 06/27/16. The patient underwent FOB yesterday. Lavage gram stain showed few gram positive cocci, few gram positive rods, moderate fungal elements, and moderate white blood cells. Culture is pending. There was no AFB seen on smears and culture is pending. There were few fungal elements seen on fungal smear. That culture is, of course, pending as well. She states that she is feeling better today. She is more easily able to mobilize her secretions, but continues to have LAW congestion. We will start Pulmozyme BID. She is central line replacement today. Medications have been reviewed. We started Pulmozyme today. Labs have been reviewed. White count is 16,000 with 74.6% segs; H&H 9.0/26.7; PLT count 182,000; creatinine has improved to 1.00, BUN 38, electrolytes are normal 06/28/2016. Patient's bronchoscopy specimens have shown only yeast. We will treat this with Diflucan. Patient had a colon infection with C. difficile. We will repeat the stools. I think this is resolved and I am just continuing her Flagyl and her p.o. vancomycin. Patient had a pneumonia at the time of admission and this was treated with cefepime which I will discontinue today. Patient's had positive stools and GI is evaluating her and consider an scopes. I think she is stable enough from a pulmonary standpoint to have scopes and sedation. This patient had renal failure and her creatinine now is 0.90 with a BUN of 30 and normal electrolytes. She was on chronic anticoagulation at the time of admission. She is off of this. As noted above she had a GI bleed with a massively prolonged INR. Today's INR is 1.0 white blood cell count is fallen to 14,900 with 73.56 13 lymphs and 9 monos. H&H is stable at 9.6/27.7 and platelets are 193,000. This patient was on chronic Coumadin therapy because of a past history of deep venous thrombophlebitis and pulmonary emboli. We will repeat her Doppler venograms as she has been off of anticoagulation for a while and she is been bed ridden. [facility]. Her other diagnoses included COPD, hyperlipidemia, chronic kidney disease, chronic pain syndrome, high blood pressure, Labs been reviewed. Medicines have been reviewed. Exam (Progress Note) - Constitutional Vitals: Period Temp Pulse Resp BP Sys/Maya Pulse Ox Last 24 Hr 97.5 F-98.5 F 65-94 7-22 140-177/54-80 87-97 Exam: Face. Symmetrical. Lips and tongue are normal. Neck. Symmetrical. Kyphotic. No mass. No meningismus. Lymphatics. No submandibular cervical supraclavicular or epitrochlear adenopathy. Chest is wheeze free, expiration is prolonged and incomplete; note, previously noted mild tracheal airway wheezes have resolved Heart no gallop Abdomen is nontender and nondistended; bowel sounds are positive 4 Extremities with nothing to suggest acute deep venous thrombophlebitis Psychiatric awake and oriented. Able to give a good history. Neurologic long tract motor function is intact. Cranial nerves are intact. The remainder the physical exam is noncontributory. Plan. 1. 06/28/2016. See my note above. Discontinue antibiotics. Start Diflucan. From pulmonary standpoint GI procedures can be started. Doppler venograms. 2. 06/28/2016. Follow-up tests to been ordered.. Results - Labs Exam (Progress Note) - Constitutional Vitals: Period Temp Pulse Resp BP Sys/Maya Pulse Ox Last 24 Hr 97.5 F-98.2 F 68-112 15-24 157-181/66-93 90-97 Results - Labs CBC & BMP: 06/28/16 03:00 06/28/16 03:00
--- NOTE | 2016-06-28 10:27 | Gastrointestinal Progress Note ---
<Maria Elena Shelton - Last Filed: 06/28/16 10:25> Assessment and Plan (1) Nausea Status: Acute Assessment and plan: 06/28-No c/o nausea, overt bleeding. Resp status improved however continued episodes of SOB. Will plan to check back on Saturday if still inpatient and if improved can proceed with EGD at that time. Plan and addendum to follow by Dr Lima. 06/26-No c/o nausea. Tolerating diet at present time. Hgb stable at 9. Continue to monitor and plan EGD when pt resp status is improved. Plan and addendum to follow by DR Lima. 06/25-no complaints of nausea, overt bleeding, or abdominal pain. FOB tomorrow morning. Will consider tentative upper endoscopy prior to discharge if respiratory status continues to improve. Plan an addendum to followed by Dr. Lima. 06/22-no complaints of nausea, denies abdominal pain. Findings of profound anemia this morning with hemoglobin 4.8, INR 3.8. Reports of melena stools. To be transfused 4 units of packed cells as well as 2 more units of fresh frozen plasma. Plan an addendum to followed by Dr. Lima. 06/21-nausea improved without any vomiting. No abdominal pain. Found to have Clostridium difficile and oral vancomycin started. Tolerating small amounts of diet. Plan an addendum to follow by Dr. Lima. 06/19-Nausea continues, better controlled at present. Noted to have leukocytosis today, however also on steroid therapy. Afebrile. Plans and addendum to follow by Dr Lima. 06/18-Sudden onset of nausea, intractable vomiting with mid abdominal pain. No coffee ground/hematemesis. KUB shows gaseous distention of stomach, nondistended bowel. Last endoscopy years prior in [place], unable to recall findings. Will continue to monitor and plan tentative EGD when respiratory status improves if symptoms persist. Plan and addendum to follow by DR Lima. Current Visit: Yes Gastroenterology - PN: Subj Interval history: CC: Nausea Pt is seen, awake and alert sitting up in bed. She states she is feeling better however still having episodes of difficulty getting her breath. She is still unable to lay down flat as well. Abdomen is soft, nontender. She has had no further nausea or vomiting. Her hemoglobin is remaining stable at 9.6 and has not required blood products in 6 days. She denies any overt signs of bleeding. ROS: Denies SOB or chest pain Exam (Progress Note) - Constitutional Vitals: Period Temp Pulse Resp BP Sys/Maya Pulse Ox Last 24 Hr 97.5 F-98.2 F 68-112 15-24 157-181/66-93 90-97 General appearance: normal weight, no acute distress - Head Head exam: Present: normal inspection, normocephalic - Eye Eye exam: Present: other (lids and conjunctiva unremarakble). Absent: scleral icterus - ENT ENT exam: Present: normal exam, normal oropharynx - Neck Neck exam: Present: normal inspection - Respiratory Respiratory exam: Present: clear to auscultation bilaterally. Absent: rales, rhonchi, wheezes - Cardiovascular Cardiovascular exam: Present: regular rate and rhythm. Absent: diastolic murmur , JVD, systolic murmur - GI/Abdominal GI/Abdominal exam: Present: normal bowel sounds, soft. Absent: ascites, distended, mass, organomegaly, tenderness - Extremities Exam Extremities exam: Present: normal inspection, full ROM - Back Exam Back exam: Present: normal inspection - Neurological Exam Neurological exam: Present: alert, oriented X3 - Psychiatric Psychiatric exam: Present: normal affect, normal mood - Skin Skin exam: Present: normal color, warm, dry Results - Labs CBC & BMP: 06/28/16 03:00 06/28/16 03:00 Lab Results: I have reviewed the past 24 hour labs <Harish Lima - Last Filed: 06/28/16 18:01> Exam (Progress Note) - Constitutional Vitals: Period Temp Pulse Resp BP Sys/Maya Pulse Ox Last 24 Hr 97.5 F-98.8 F 68-112 17-24 150-181/72-100 90-96 Results - Labs CBC & BMP: 06/28/16 03:00 06/28/16 03:00
--- NOTE | 2016-06-28 11:29 | Ultrasound Report ---
Exam: Bilateral lower extremity venous Doppler ultrasound Comparison: 06/18/2016 Clinical history: Leg pain, history of DVT Technique: Duplex scan of the lower extremity veins using B-mode/grayscale scaled imaging and Doppler spectral analysis and color flow. Findings: Major venous structures of the lower extremities demonstrate a normal course and caliber. Normal color-flow study and spectral analysis. There is normal compression and augmentation of bilateral common femoral, superficial femoral and popliteal veins. The proximal bilateral greater saphenous veins appear to be patent. Impression: No evidence to suggest deep venous thrombosis within either lower extremity. Ultrasound images were captured and stored. PROCEDURE INTERPRETED AT [facility] DEPARTMENT OF RADIOLOGY Final Report Signed by: Dr. Alethea Douglas
[2016-06-28] MEDS: FLUCONAZOLE INJ 100 MG in IV BAG 1 EACH IV SCH (13:39)
[2016-06-28] MEDS: MAGNESIUM CHLORIDE 64 MG TABLET PO SCH ×2 (13:39→21:42)
--- NOTE | 2016-06-28 13:53 | Hospitalist Progress Note ---
Assessment and Plan (1) Pneumonia Status: Acute Assessment and plan: Possible aspiration pneumonia. Pulmonary is involved. Continue current management. Current Visit: Yes Qualifiers: Pneumonia type: due to unspecified organism Laterality: bilateral Lung location: lower lobe of lung Qualified Code(s): J18.9 - Pneumonia, unspecified organism (2) C. difficile colitis Status: Acute Assessment and plan: Treatment has been completed. Current Visit: Yes (3) Nausea Status: Acute Assessment and plan: GI on board. Current Visit: Yes (4) Acute blood loss anemia Status: Acute Assessment and plan: Stable. Current Visit: Yes (5) Acute exacerbation of chronic obstructive airways disease Status: Acute Assessment and plan: Continue current management. Current Visit: Yes (6) Hypertension Status: Acute Assessment and plan: Stable. Continue antihypertensives. Current Visit: Yes (7) Anticoagulant long-term use Status: Acute Assessment and plan: Holding anticoagulation, venous doppler negative. History of CT of the chest, will consider repeating to assess for residual clots. Current Visit: Yes Hospitalist: Subjective Interval history: Transferred from the ICU. States she is breathing better. Exam - Constitutional Vitals: Period Temp Pulse Resp BP Sys/Maya Pulse Ox Last 24 Hr 97.5 F-98.7 F 68-112 17-24 150-181/66-93 90-96 General appearance: no acute distress - Head Head exam: Present: normocephalic, atraumatic - Eye Eye exam: Present: EOMI Pupils: Present: LISBET - ENT ENT exam: Present: normal exam - Neck Neck exam: Present: normal inspection - Respiratory Respiratory exam: Present: clear to auscultation bilaterally. Absent: rhonchi, wheezes - Cardiovascular Cardiovascular exam: Present: regular rate and rhythm. Absent: gallop, rubs, systolic murmur - GI/Abdominal GI/Abdominal exam: Present: normal bowel sounds, soft. Absent: distended, firm , guarding, tenderness, rebound - Extremities Exam Extremities exam: Present: normal inspection, edema (trace edema). Absent: calf tenderness Results - Labs CBC & BMP: 06/28/16 03:00 06/28/16 03:00 Lab Results: I have reviewed the past 24 hour labs
[2016-06-28] MEDS: GABAPENTIN 100 MG CAPSULE PO SCH (21:42)
[2016-06-28] MEDS: clonazePAM 0.5 MG TABLET PO PRN (21:42)
[2016-06-28] MEDS: traZODone 50 MG TABLET PO PRN (21:49)
[2016-06-29] MEDS: ALBUTEROL/IPRATROPIUM 3 ML NEB RESP TX SCH ×4 (00:28→20:00)
[2016-06-29 05:57] LABS: Eosinophils # 0.3 10*3/uL (0.0-0.87); Eosinophils % 2.6 % (0.00-10.9); Hematocrit 28.5 VOL% (35.7-47.0); Hemoglobin 9.8 GM/DL (12.0-16.0); Immature Granulocytes % 1.4 %; Immature Granulocytes Absolute 0.19 #; Mean Corpuscular HGB Conc 34.4 GM/DL (32-36); Mean Corpuscular Hemoglobin 31 PG (27-34); Mean Corpuscular Volume 91.1 FL (87-102); Mean Platelet Volume 9.4 FL (9.6-12.0); Monocytes # 1.2 10*3/uL (0.11-0.8); Monocytes % 9.1 % (1.7-12.7); Neutrophils # 9.6 10*3/uL (1.4-7.4); Neutrophils % 71.9 % (38.7-73.9); Platelet Count 222 T/CUMM (130-400); Red Blood Count 3.13 MC/CUMM (3.8-5.5); Red Cell Distribution Width 15.9 % (9.3-17.3); White Blood Count 13.3 T/CUMM (4-12)
[2016-06-29 06:08] LABS: INR 1.1; PT Patient Result 11.4 SECS
[2016-06-29 06:35] LABS: Calcium 7.7 MG/DL (8.5-10.1); Magnesium 1.5 MG/DL (1.8-2.4); Osmolality,Calculated 291.7 MOS/KG (273-304); Potassium 3.5 MMOL/L (3.5-5.1)
--- NOTE | 2016-06-29 07:05 | XRay Report ---
Portable chest Date: 06/29/2016 Clinical history: Pneumonia Comparison: 06/28/2016 Technique: Portable AP sitting chest Findings: Stable cardiomegaly with reduced parenchymal findings at the lung bases and small pleural effusions. Stable right IJ CVP line, mediastinum, and osseous structures. Old healed right clavicular fracture. Impression: Improved bibasilar pneumonia with small pleural effusions. PROCEDURE INTERPRETED AT [facility] DEPARTMENT OF RADIOLOGY Final Report Signed by: Dr. Alethea Douglas
[2016-06-29] MEDS: BUDESONIDE 0.5 MG/2 ML NEB RESP TX SCH ×2 (07:22→20:00)
[2016-06-29] MEDS: DORNASE ALFA 2.5 MG/2.5 ML VIAL RESP TX SCH ×2 (07:22→20:00)
[2016-06-29] MEDS: POLYVINYL ALCOHOL 1.4% OPH SOLN 15 ML BOTTLE BOTH EYES SCH ×3 (08:42→21:04)
[2016-06-29] MEDS: FLUCONAZOLE INJ 100 MG in IV BAG 1 EACH IV SCH (08:43)
[2016-06-29] MEDS: hydroCHLOROthiazide 12.5 MG CAPSULE PO SCH ×2 (08:46→14:05)
[2016-06-29] MEDS: BACLOFEN 10 MG TABLET PO SCH ×3 (08:46→21:03)
[2016-06-29] MEDS: DILTIAZEM CD 240 MG CAPSULE PO SCH ×2 (08:46→13:57)
[2016-06-29] MEDS: methylPREDNISolone 4 MG TABLET PO SCH ×2 (08:47→13:57)
[2016-06-29] MEDS: POLYETHYLENE GLYCOL POWDER 17 GM PACK PO SCH (08:47)
[2016-06-29] MEDS: PANTOPRAZOLE 40 MG VIAL IV SCH ×2 (08:48→21:06)
[2016-06-29] MEDS: DESITIN 4OZ/NYSTATIN 15 GRAM MIXTURE PASTE TOP SCH ×2 (08:48→21:10)
[2016-06-29] MEDS: MAGNESIUM CHLORIDE 64 MG TABLET PO SCH ×3 (08:49→21:03)
[2016-06-29] MEDS ORDERED: MAGNESIUM SULF RIDER 4 GM in PREMIX 1 EACH IV ONE (10:00)
[2016-06-29] MEDS ORDERED: PROPOFOL 200 MG/20 ML VIAL IV ONE (10:34)
[2016-06-29] MEDS ORDERED: LIDOCAINE 2% 5 ML VIAL ONE (10:34)
--- NOTE | 2016-06-29 10:48 | History and Physical Update ---
History and Physical Update - Physical Exam Mental Status: alert and oriented Heart: regular rate and rhythm Lung: other (Coarse breath sounds with no wheezing) Vitals: within normal limits
--- NOTE | 2016-06-29 10:51 | Operative Note ---
Date of procedure: 06/29/16 Pre-op diagnosis: Dysphagia Procedure: EGD with esophageal dilatation 80-year-old female admitted with severe COPD complaining of dysphagia complaints now for upper endoscopy to further evaluate after improvement in her pulmonary status. Informed consent was obtained for the patient She was sedated with MAC anesthesia per anesthesia protocol. Patient was placed in left lateral decubitus position the Olympus flexible video upper endoscope was inserted into the oral cavity under direct vision the esophagus was intubated. Findings: Esophagus-normal proximal esophageal mucosa distal esophagus and midesophagus revealed distal esophageal stricture and erosive esophagitis with suspected component of [place]. Moderate hiatal hernia was observed. Stomach-normal insufflation normal mucosa to direct and retroflexed views of the body, fundus, cardia and antrum of the stomach. Pylorus-normal Duodenum-normal for the bulb duodenum to the third portion of the duodenum. The scope was removed subsequently a 50 [place] bougie was passed with no resistance and no blood present on the dilator. The bougie was removed. Patient was subsequently discharged recovery in good condition. Postop diagnosis: 1. Gastroesophageal reflux disease with erosive esophagitis-continue PPI treatment and antireflux precautions 2. Suspect candidal esophagitis-add Diflucan for 5 days 3. Esophageal stricture repeat dilatation on as-needed basis. 4. I will be out over the weekend call coverage if needed. Anesthesia: MAC Surgeon / Physician: Harish Lima Estimated blood loss: none Specimens: none sent Condition: stable Disposition: post procedure unit Results - Labs CBC & BMP: 06/29/16 05:40 06/29/16 05:40 Discharge Plan - Discharge Medications No Action Acetaminophen Tab [Tylenol Tab] 1,000 mg PO Q8HR PRN MDD 3GM/24HRS PRN Reason: Fever, Headache, Mild Pain Baclofen [Baclofen] 10 mg PO BID clonazePAM [Clonazepam] 0.5 mg PO BID Clopidogrel [Plavix] 75 mg PO DAILY Dimenhydrinate Solution 1 ml IJ Q4H PRN PRN Reason: Nausea/Vomiting dimenhyDRINATE [Dramamine Chew Tab] 50 mg PO Q4H PRN PRN Reason: Nausea/Vomiting Docusate Sodium 100 mg PO BID Gabapentin [Gabapentin] 100 mg PO 2100 guaiFENesin [Cough Syrup] 100 mg PO QID PRN PRN Reason: Cough Losartan/Hydrochlorothiazide [Losartan-Hctz 100-25 mg Tab] 1 each PO 0900 Mirtazapine [Mirtazapine] 15 mg PO QOTHER DAY Omeprazole [Prilosec] 20 mg PO DAILY Polyethylene Glycol Powder [Miralax] 8.5 gm PO 0900 Polyvinyl Alcohol 1.4% Oph Amber [Artificial Tears Oph Soln] 1 drop BOTH EYES TID Pravastatin [Pravachol] 40 mg PO DAILY Tiotropium Inhalation [Spiriva Handihaler] 18 mcg INH DAILY Warfarin Sodium [Warfarin Sodium] 3 mg PO 2100 Albuterol/Ipratropium Neb [Duoneb] 3 ml RESP TX RT Q6H PRN PRN Reason: Shortness Of Breath/Wheezing Phenol 1.4% Throat [place] [Chloraseptic [place]] 2 - 3 spray PO Q2H PRN PRN Reason: Sore Throat Cholecalciferol (Vitamin D3) [Vitamin D3] 2,000 unit PO 0900 dilTIAZem HCl [Diltiazem ER] 240 mg PO 0900 diphenhydrAMINE HCl [diphenhydrAMINE Cap] 50 mg PO Q6H PRN PRN Reason: Pruritis Hydrocodone Bitartrate [Zohydro ER] 30 mg PO 0600,1800 Mirtazapine [Remeron] 30 mg PO QOTHER DAY Potassium Chloride Cap/Tab [K Dur] 20 meq PO DAILY - Follow Up or Referral - Forms/Instructions
--- NOTE | 2016-06-29 10:59 | Anesthesia Post-Op ---
Anesthesia Post OP - Post Ansesthetic Evaluation Patient seen in post op: Yes Resp: within normal limits CV: within normal limits Mental: within normal limits Temp: within normal limits [id number]: within normal limits Nausea and Vomiting: within normal limits Pain: within normal limits
--- NOTE | 2016-06-29 11:03 | Pulmonology Progress Note ---
Pulmonary - PN: Subj Interval history: This 80-year-old white female who we saw in initial pulmonary consultation on 06/18/2016. This patient had been transferred here from [facility] in [place], [place]. She had been short of breath and hypoxemic. At the time of our initial consultation, our impressions were: 1. Acute right lower lung pneumonia probably improving 2. Possible aspiration secondary to nausea and vomiting 3. Possible dilated stomach. Intractable nausea and vomiting 4. Acute on chronic renal failure 5. Chronic anticoagulation. 6. History of chronic pain 7. High blood pressure 8. See past history 9. Hypokalemia 06/19/2016. Today's x-ray shows cardiomegaly and a resolving right lower lung infiltrate. Patient has increased interstitial markings in both upper lungs and in both bases. There are no positive cultures. Patient says she is breathing better and she is definitely on a lot less distress. White blood cell count was 13,900 with 91 segs. H&H is dropped to 10.5/32.4. Sodium is 144 potassium remains low at 3.0 on replacement protocol. Creatinine which was 1.6 at admission has now gone to 4.20 with a BUN of 9 I have come take in the liberty of consulting renal. D5 normal saline at 75 cc/h was started last night by me. INR is 3.2. I am holding Coumadin. I have continued Lovenox 40 mg once a day but we may need to stop this. Doppler venograms of the lower extremities have shown no evidence of deep venous thrombophlebitis. ABGs 06/18/2016. FiO2 40%. PH 7.51, PCO2 58.8, PO2 51.5. Bicarb 43.6 06/20/2016. Today's x-ray shows resolving right lower lung infiltrate and a resolving residual left lower lung infiltrate patient stools are positive for C. difficile. There are no positive cultures from the sputum's. Patient has stools which were positive for blood. Patient's Lovenox is being held. She has been off of Coumadin for several days. INR is now 5.7 have ordered 2 units of fresh frozen plasma. ABGs on FiO2 of 50% shows a pH 7.43, PCO2 of 57.3, PO2 is 69.0 and a bicarb of 35.3. Potassium is up to 3.2. Creatinine remains elevated 4.5 with a BUN of 141. White blood cell count is elevated at 16,800 with 90.6 segs. H&H is dropped to 9.4/27.6 and platelet count is 247,000. Natruretic peptide is 26. 06/21/2016. Patient's breathing seems much better today. Her diarrhea is nearly resolved. INR is dropped from 5.7-4.8. I am going to transfuse her with 2 units of fresh frozen plasma. Potassium is 3.3. Patient is on a replacement protocol. White count is 18,500 with 86 segs. H&H is 9.1/26.4. Platelets are 278,000. Chest x-ray will be repeated tomorrow. Creatinine has dropped from 4.50-2.20 with a BUN of 102. 06/22/2016. The patient has been moved to intensive care this morning secondary to severe anemia with a hematocrit of 14.6. Melena stool noted by floor nurse this morning. She is to be transfused 4 units of packed red blood cells. She is also supposed to get 1 more unit of fresh frozen plasma. Patient has not been on her Plavix. She has already received 4 units of fresh frozen plasma over the past 2 days. INR today is 3.8. Certainly, her respiratory status has been affected secondary to her severe anemia. She is remaining on 50% facemask and is maintaining her oxygen saturations. Her known right lower lung infiltrate is improving slowly. 06/25/2016. The patient remains in intensive care. Since admission, the patient has been transfused 4 units of blood and 5 units of fresh frozen plasma. H&H today is 9.2/27.4. CT of the chest done 06/23/16 showed bronchial calcification and bronchiectasis of both lungs most prominent extending into the left lower lung and and there was left lower lung airspace density. Small amount of similar changes were seen on the right. Many of the bronchi were partially occupied by mucosal density. The patient is stable enough to proceed with FOB, so this will be scheduled for tomorrow morning at 0800 at bedside. 06/26/2016. This patient was evaluated with fiberoptic bronchoscopy today. She has a tremendous amount of retained secretions. There was bilateral erosive friable bronchitis that looked like it was probably related to chronic infection and possibly related to aspiration. Specimens were sent for cytology , bacterial, AFB and fungal studies. Today's chest x-ray shot as a right lateral oblique. There is residual infiltrate and mild atelectasis in the right lower lung and there is residual infiltrate in the left lower lung. The trachea and mainstem bronchi are calcified. There are no positive cultures. Creatinine has dropped to 1.2 with a BUN of 51 and normal electrolytes. White blood cell count remains elevated at 19,500 with 79.5 segs 8.6 lymphs and 7.8 monocytes. INR is 1.1. H&H is 9.0/26.8. Patient has stabilized since transfusion given 06/22/2016. Patient is definitely stronger today. Solu- Medrol was changed to methylprednisolone 4 mg daily for 5 days. I really do not think this is enough and I have increased to 12 mg daily we may need to go back Solu-Medrol. 06/27/16. The patient underwent FOB yesterday. Lavage gram stain showed few gram positive cocci, few gram positive rods, moderate fungal elements, and moderate white blood cells. Culture is pending. There was no AFB seen on smears and culture is pending. There were few fungal elements seen on fungal smear. That culture is, of course, pending as well. She states that she is feeling better today. She is more easily able to mobilize her secretions, but continues to have LAW congestion. We will start Pulmozyme BID. She is central line replacement today. Medications have been reviewed. We started Pulmozyme today. Labs have been reviewed. White count is 16,000 with 74.6% segs; H&H 9.0/26.7; PLT count 182,000; creatinine has improved to 1.00, BUN 38, electrolytes are normal 06/28/2016. Patient's bronchoscopy specimens have shown only yeast. We will treat this with Diflucan. Patient had a colon infection with C. difficile. We will repeat the stools. I think this is resolved and I am just continuing her Flagyl and her p.o. vancomycin. (note the previous stenosis was a dragon error. The sentence should read, I think this is resolved and I am discontinuing her Flagyl and her p.o. vancomycin.) Patient had a pneumonia at the time of admission and this was treated with cefepime which I will discontinue today. Patient's had positive stools and GI is evaluating her and consider an scopes. I think she is stable enough from a pulmonary standpoint to have scopes and sedation. This patient had renal failure and her creatinine now is 0.90 with a BUN of 30 and normal electrolytes. She was on chronic anticoagulation at the time of admission. She is off of this. As noted above she had a GI bleed with a massively prolonged INR. Today's INR is 1.0 white blood cell count is fallen to 14,900 with 73.56 13 lymphs and 9 monos. H&H is stable at 9.6/27.7 and platelets are 193,000. This patient was on chronic Coumadin therapy because of a past history of deep venous thrombophlebitis and pulmonary emboli. We will repeat her Doppler venograms as she has been off of anticoagulation for a while and she is been bed ridden. This patient originally came from a halfway. Her other diagnoses included COPD, hyperlipidemia, chronic kidney disease, chronic pain syndrome, high blood pressure, 06/29/2016. Today's chest x-ray shows cardiomegaly. Infiltrates have resolved. Left costophrenic angle is not seen well. This is a right oblique film. INR is 1.1. Electrolytes are normal. Creatinine is 1.0. H&H is 9.8/28.5. White count is 13,300 and platelets of 221,000. This patient had a history of deep venous thrombophlebitis and pulmonary emboli and she had been on long-term Coumadin at the time of this admission. She is off Coumadin. Doppler venograms done 06/28/2016 showed no evidence of deep venous thrombophlebitis. She has complained of leg cramps. Replacement of magnesium was begun yesterday and mag has increased from 1.3-1.5. Patient is for scopes by GI today. In summary her anticoagulation is now under control, acute renal failure has resolved, pneumonia has resolved, and she looks much better. Labs been reviewed. Medicines have been reviewed. Exam (Progress Note) - Constitutional Vitals: Period Temp Pulse Resp BP Sys/Maya Pulse Ox Last 24 Hr 97.5 F-98.5 F 65-94 7-22 140-177/54-80 87-97 Exam: Face. Symmetrical. Lips and tongue are normal. Neck. Symmetrical. Kyphotic. No mass. No meningismus. Lymphatics. No submandibular cervical supraclavicular or epitrochlear adenopathy. Chest is wheeze free, expiration is prolonged and incomplete; note, previously noted mild tracheal airway wheezes have resolved Heart no gallop Abdomen is nontender and nondistended; bowel sounds are positive 4 Extremities with nothing to suggest acute deep venous thrombophlebitis Psychiatric awake and oriented. Able to give a good history. Neurologic long tract motor function is intact. Cranial nerves are intact. The remainder the physical exam is noncontributory. Plan. 1. 06/28/2016. See my note above. Discontinue antibiotics. Start Diflucan. From pulmonary standpoint GI procedures can be started. Doppler venograms. 2. 06/28/2016. Follow-up tests to been ordered. 3. 06/29/2016. See today's note above. Patient's markedly improved from my standpoint and the main thing left to do is to find out additional information about her recent acute GI bleed. Results - Labs Exam (Progress Note) - Constitutional Vitals: Period Temp Pulse Resp BP Sys/Maya Pulse Ox Last 24 Hr 97.3 F-99.3 F 65-109 18-22 135-164/64-100 90-98 Results - Labs CBC & BMP: 06/29/16 05:40 06/29/16 05:40
[2016-06-29] MEDS: POTASSIUM CHLORIDE 20 MEQ TABLET PO PRN ×2 (13:56→16:47)
[2016-06-29] MEDS: clonazePAM 0.5 MG TABLET PO PRN (13:57)
[2016-06-29] MEDS: DEXTROSE 5% NACL 0.9% 1,000 ML IV SCH (14:50)
[2016-06-29] MEDS: GABAPENTIN 100 MG CAPSULE PO SCH (21:04)
[2016-06-29] MEDS: traZODone 50 MG TABLET PO PRN (23:17)
[2016-06-30] MEDS: ALBUTEROL/IPRATROPIUM 3 ML NEB RESP TX SCH ×4 (00:13→18:59)
[2016-06-30] MEDS: DEXTROSE 5% NACL 0.9% 1,000 ML IV SCH ×2 (03:42→18:52)
[2016-06-30 04:22] LABS: Basophils % 0.1 % (0.0-0.8); Eosinophils % 0.1 % (0.00-10.9); Hematocrit 28.3 VOL% (35.7-47.0); Hemoglobin 9.5 GM/DL (12.0-16.0); Immature Granulocytes % 0.8 %; Lymphocytes # 1.2 10*3/uL (1.4-4.0); Lymphocytes % 9.5 % (21.3-54.2); Mean Corpuscular HGB Conc 33.6 GM/DL (32-36); Mean Corpuscular Hemoglobin 30 PG (27-34); Mean Corpuscular Volume 90.7 FL (87-102); Mean Platelet Volume 9.5 FL (9.6-12.0); Monocytes # 0.6 10*3/uL (0.11-0.8); Monocytes % 4.5 % (1.7-12.7); Neutrophils # 10.7 10*3/uL (1.4-7.4); Platelet Count 258 T/CUMM (130-400); Red Blood Count 3.12 MC/CUMM (3.8-5.5); Red Cell Distribution Width 15.7 % (9.3-17.3); White Blood Count 12.6 T/CUMM (4-12)
[2016-06-30 05:33] LABS: Calcium 7.5 MG/DL (8.5-10.1); Osmolality,Calculated 287.1 MOS/KG (273-304); Potassium 4.5 MMOL/L (3.5-5.1)
[2016-06-30] MEDS: BUDESONIDE 0.5 MG/2 ML NEB RESP TX SCH ×2 (08:41→18:59)
[2016-06-30] MEDS: DORNASE ALFA 2.5 MG/2.5 ML VIAL RESP TX SCH ×2 (08:42→18:59)
--- NOTE | 2016-06-30 09:05 | Pulmonology Progress Note ---
Pulmonary - PN: Subj Interval history: This 70-year-old lady has had pneumonia. She had reflux of the stricture by well-padded aspiration pneumonia. Clinically she is improved. Continuing antibiotics. Exam (Progress Note) - Constitutional Vitals: Period Temp Pulse Resp BP Sys/Maya Pulse Ox Last 24 Hr 96.8 F-98 F 61-93 14-24 120-173/60-80 88-98 Exam: Patient is responsive. Vital signs normal. Pupils react to light. Throat is clear. Neck supple no bruits. Chest shows a few basilar rhonchi otherwise clear. Heart normal rate rhythm no murmurs. Abdomen soft no masses. Extremities no clubbing cyanosis edema. Calves nontender. Results - Labs CBC & BMP: 06/30/16 03:49 06/30/16 03:49 Lab Results: I have reviewed the past 24 hour labs Assessment and Plan (1) Acute exacerbation of chronic obstructive airways disease Status: Acute Assessment and plan: Continue oxygen and bronchodilators. No active bronchospasm. Current Visit: Yes (2) Pneumonia Status: Acute Assessment and plan: Continuing empiric antibiotics. Nothing has grown from bronchial lavage. Current Visit: Yes Qualifiers: Pneumonia type: due to unspecified organism Laterality: bilateral Lung location: lower lobe of lung Qualified Code(s): J18.9 - Pneumonia, unspecified organism
[2016-06-30] MEDS: PANTOPRAZOLE 40 MG VIAL IV SCH ×2 (09:47→21:30)
[2016-06-30] MEDS: MAGNESIUM CHLORIDE 64 MG TABLET PO SCH ×2 (09:48→21:30)
[2016-06-30] MEDS: FLUCONAZOLE INJ 100 MG in IV BAG 1 EACH IV SCH (09:48)
[2016-06-30] MEDS: BACLOFEN 10 MG TABLET PO SCH ×2 (09:48→21:30)
[2016-06-30] MEDS: methylPREDNISolone 4 MG TABLET PO SCH (09:48)
[2016-06-30] MEDS: POLYVINYL ALCOHOL 1.4% OPH SOLN 15 ML BOTTLE BOTH EYES SCH ×3 (09:48→21:37)
[2016-06-30] MEDS: hydroCHLOROthiazide 12.5 MG CAPSULE PO SCH (09:48)
[2016-06-30] MEDS: DILTIAZEM CD 240 MG CAPSULE PO SCH (09:48)
[2016-06-30] MEDS: POLYETHYLENE GLYCOL POWDER 17 GM PACK PO SCH (09:49)
[2016-06-30] MEDS: DESITIN 4OZ/NYSTATIN 15 GRAM MIXTURE PASTE TOP SCH ×2 (09:49→21:33)
--- NOTE | 2016-06-30 13:35 | Hospitalist Progress Note ---
Assessment and Plan - Time spent with patient Time spent with patient: Greater than 30 minutes (1) Pneumonia Status: Acute Assessment and plan: Possible aspiration pneumonia. Pulmonary is involved. Continue current management. Current Visit: Yes Qualifiers: Pneumonia type: due to unspecified organism Laterality: bilateral Lung location: lower lobe of lung Qualified Code(s): J18.9 - Pneumonia, unspecified organism (2) C. difficile colitis Status: Acute Assessment and plan: Repeat C. difficile pending. Patient received an interrupted course of about 7- 8 days worth of treatment. Current Visit: Yes (3) Nausea Status: Acute Assessment and plan: Improving. Current Visit: Yes (4) Acute blood loss anemia Status: Acute Assessment and plan: Stable. Current Visit: Yes (5) Acute exacerbation of chronic obstructive airways disease Status: Acute Assessment and plan: Continue current management. Current Visit: Yes (6) Hypertension Status: Acute Assessment and plan: Stable. Continue antihypertensives. Current Visit: Yes (7) Anticoagulant long-term use Status: Acute Assessment and plan: Holding anticoagulation, venous doppler negative. History of PE. Will repeat CT to assess the need for continuing anticoagulation. Current Visit: Yes Hospitalist: Subjective Interval history: No complaints or overnight events. Exam - Constitutional Vitals: Period Temp Pulse Resp BP Sys/Maya Pulse Ox Last 24 Hr 97 F-98.0 F 75-93 15-20 131-173/63-78 90-98 General appearance: no acute distress - Head Head exam: Present: normocephalic, atraumatic - Eye Eye exam: Present: EOMI Pupils: Present: LISBET - ENT ENT exam: Present: normal exam - Neck Neck exam: Present: normal inspection - Respiratory Respiratory exam: Present: clear to auscultation bilaterally. Absent: rhonchi, wheezes - Cardiovascular Cardiovascular exam: Present: regular rate and rhythm. Absent: gallop, rubs, systolic murmur - GI/Abdominal GI/Abdominal exam: Present: normal bowel sounds, soft. Absent: distended, firm , guarding, tenderness, rebound - Extremities Exam Extremities exam: Present: normal inspection. Absent: calf tenderness, edema Results - Labs CBC & BMP: 06/30/16 03:49 06/30/16 03:49 Lab Results: I have reviewed the past 24 hour labs
--- NOTE | 2016-06-30 15:10 | CT Report ---
CT chest PE study Indication: History of pulmonary embolus. Comparison: None. Technique: CT of the chest was performed following the administration of intravenous contrast. In addition to multiple contiguous axial source images obtained from the thoracic inlet through the upper abdomen, coronal and sagittal MPR series were performed as were thin slab MIP reconstructions in the coronal and sagittal plane. The CT examination was performed using one or more of the following dose reduction techniques: Automatic exposure control, adjustment of the mA and kV according to patient size, or iterative reconstruction techniques. Findings: Pulmonary artery appears fairly well-opacified. There is moderate motion artifact. Peripheral low attenuation is present within the right lower lobe segmental branches and the bifurcation of the right lower lobe segmental branches that could reflect residual thrombus or motion artifact. Additionally, the middle lobe segmental branches on the right may have thrombus within. Additional subsegmental branch left upper lobe has central low attenuation could reflect thrombus. Small left-sided pleural effusion and compressive atelectasis of the left lower lobe are present. Trace right-sided pleural effusion as well as additional atelectatic changes within the right lower lobe redemonstrated. Calcified granuloma is suggested right upper lobe. Groundglass attenuation dependently located within the left upper lobe is nonspecific in appearance and could reflect atelectatic change or edema. The lung parenchyma is blurred by motion. The aorta demonstrates diffuse intimal calcification with bovine arch anatomy. A moderate amount of mural thrombus is present within the proximal descending thoracic aorta. Coronary artery calcifications are moderately dense within the left and right coronary circulation. The esophagus demonstrates no significant abnormality. No adenopathy is noted within the axilla, lacey, or mediastinum. Imaged bony structures appear intact without evidence of acute pathology. Below degenerative changes of the thoracic spine are present. Soft tissues and musculature of the chest wall, lower neck, and imaged portions of the upper abdomen demonstrate no evidence of acute pathology. Gallbladder is surgically absent. Impression: 1. Motion significantly degrades the lung parenchyma as well as a smaller pulmonary arteries. Multiple branches of the pulmonary artery have central and peripheral low-attenuation to have differential considerations including motion artifact, residual thrombus, and acute thrombus. No old studies are available for comparison to further correlate these areas. 2. The lung parenchyma could reflect a component of pulmonary edema. Bilateral pleural effusions are present trace on the right, small and the left. 3. Cardiomegaly. 4. Moderately dense coronary artery calcifications are present. 5. Other findings as detailed. 06/30/2016 3:02 PM PROCEDURE INTERPRETED AT [facility] Final Report Signed by: Dr. Dhiraj Rader
[2016-06-30] MEDS: traZODone 50 MG TABLET PO PRN (21:29)
[2016-06-30] MEDS: GABAPENTIN 100 MG CAPSULE PO SCH (21:30)
[2016-07-01] MEDS: ALBUTEROL/IPRATROPIUM 3 ML NEB RESP TX SCH ×4 (00:50→19:57)
[2016-07-01 04:34] LABS: Basophils % 0.1 % (0.0-0.8); Eosinophils % 0.2 % (0.00-10.9); Hematocrit 26.1 VOL% (35.7-47.0); Hemoglobin 8.5 GM/DL (12.0-16.0); Immature Granulocytes % 0.7 %; Immature Granulocytes Absolute 0.09 #; Lymphocytes # 1.4 10*3/uL (1.4-4.0); Lymphocytes % 11.2 % (21.3-54.2); Mean Corpuscular HGB Conc 32.6 GM/DL (32-36); Mean Corpuscular Hemoglobin 30 PG (27-34); Mean Corpuscular Volume 92.9 FL (87-102); Mean Platelet Volume 9.4 FL (9.6-12.0); Monocytes # 0.8 10*3/uL (0.11-0.8); Monocytes % 6.3 % (1.7-12.7); Neutrophils # 9.9 10*3/uL (1.4-7.4); Neutrophils % 81.5 % (38.7-73.9); Platelet Count 238 T/CUMM (130-400); Red Blood Count 2.81 MC/CUMM (3.8-5.5); Red Cell Distribution Width 15.7 % (9.3-17.3); White Blood Count 12.1 T/CUMM (4-12)
[2016-07-01 04:58] LABS: Calcium 7.8 MG/DL (8.5-10.1); Osmolality,Calculated 291.7 MOS/KG (273-304); Potassium 4.5 MMOL/L (3.5-5.1)
[2016-07-01] MEDS: BUDESONIDE 0.5 MG/2 ML NEB RESP TX SCH ×2 (07:54→19:57)
[2016-07-01] MEDS: DORNASE ALFA 2.5 MG/2.5 ML VIAL RESP TX SCH ×2 (08:04→19:57)
[2016-07-01] MEDS: PANTOPRAZOLE 40 MG VIAL IV SCH ×2 (08:54→21:41)
[2016-07-01] MEDS: POLYVINYL ALCOHOL 1.4% OPH SOLN 15 ML BOTTLE BOTH EYES SCH ×3 (08:54→21:49)
[2016-07-01] MEDS: FLUCONAZOLE INJ 100 MG in IV BAG 1 EACH IV SCH (08:54)
[2016-07-01] MEDS: MAGNESIUM CHLORIDE 64 MG TABLET PO SCH ×2 (08:54→21:44)
[2016-07-01] MEDS: methylPREDNISolone 4 MG TABLET PO SCH (08:54)
[2016-07-01] MEDS: DESITIN 4OZ/NYSTATIN 15 GRAM MIXTURE PASTE TOP SCH ×2 (08:55→21:45)
[2016-07-01] MEDS: DILTIAZEM CD 240 MG CAPSULE PO SCH (08:55)
[2016-07-01] MEDS: BACLOFEN 10 MG TABLET PO SCH ×2 (08:55→21:44)
[2016-07-01] MEDS: POLYETHYLENE GLYCOL POWDER 17 GM PACK PO SCH (08:55)
[2016-07-01] MEDS: hydroCHLOROthiazide 12.5 MG CAPSULE PO SCH (08:55)
--- NOTE | 2016-07-01 10:09 | Pulmonology Progress Note ---
Pulmonary - PN: Subj Interval history: This 70-year-old lady has had pneumonia. She had reflux of the stricture by well-padded aspiration pneumonia. Clinically she is improved. Continuing antibiotics. 07/01/2016 patient is feeling a little better. My note yesterday he was not transcribed properly. I had said that she may well have had aspiration pneumonia. Exam (Progress Note) - Constitutional Vitals: Period Temp Pulse Resp BP Sys/Maya Pulse Ox Last 24 Hr 97.6 F-99.7 F 65-93 17-20 128-152/57-66 88-100 Exam: Patient is responsive. Vital signs normal. Pupils react to light. Throat is clear. Neck supple no bruits. Chest shows a few basilar rhonchi otherwise clear. Heart normal rate rhythm no murmurs. Abdomen soft no masses. Extremities no clubbing cyanosis edema. Calves nontender. Little change from yesterday. Results - Labs CBC & BMP: 07/01/16 04:02 07/01/16 04:02 Lab Results: I have reviewed the past 24 hour labs Assessment and Plan (1) Acute exacerbation of chronic obstructive airways disease Status: Acute Assessment and plan: Continue oxygen and bronchodilators. No active bronchospasm. 07/01/2016 on empiric treatment. Does not sound bad today. Current Visit: Yes (2) Pneumonia Status: Acute Assessment and plan: Continuing empiric antibiotics. Nothing has grown from bronchial lavage. 07/01/2016 continuing empiric antibiotics. Current Visit: Yes Qualifiers: Pneumonia type: due to unspecified organism Laterality: bilateral Lung location: lower lobe of lung Qualified Code(s): J18.9 - Pneumonia, unspecified organism
--- NOTE | 2016-07-01 12:14 | Hospitalist Progress Note ---
Assessment and Plan - Time spent with patient Time spent with patient: Greater than 30 minutes (1) Acute blood loss anemia Status: Acute Assessment and plan: Stable. Defer to GI for EGD to evaluate cause. Current Visit: Yes (2) Acute exacerbation of chronic obstructive airways disease Status: Acute Assessment and plan: Continue current management. Current Visit: Yes (3) Hypertension Status: Acute Assessment and plan: Stable. Continue antihypertensives. Current Visit: Yes (4) Anticoagulant long-term use Status: Acute Assessment and plan: CT chest reveals presence of clot. She will need resumption of anticoagulation once cleared by GI. Current Visit: Yes (5) History of pulmonary embolism Status: Acute Assessment and plan: Will require resumption of coumadin once cleared by GI. Current Visit: Yes (6) C. difficile colitis Status: Acute Assessment and plan: Resolved. Current Visit: Yes Hospitalist: Subjective Interval history: No complaints or overnight events. Exam - Constitutional Vitals: Period Temp Pulse Resp BP Sys/Maya Pulse Ox Last 24 Hr 96.9 F-98.7 F 65-92 17-20 128-152/57-76 88-100 General appearance: no acute distress - Head Head exam: Present: normocephalic, atraumatic - Eye Eye exam: Present: EOMI Pupils: Present: LISBET - ENT ENT exam: Present: normal exam - Neck Neck exam: Present: normal inspection - Respiratory Respiratory exam: Present: clear to auscultation bilaterally. Absent: rhonchi, wheezes - Cardiovascular Cardiovascular exam: Present: regular rate and rhythm. Absent: gallop, rubs, systolic murmur - GI/Abdominal GI/Abdominal exam: Present: normal bowel sounds, soft. Absent: distended, firm , guarding, tenderness, rebound - Extremities Exam Extremities exam: Present: normal inspection. Absent: calf tenderness, edema Results - Labs CBC & BMP: 07/01/16 04:02 07/01/16 04:02 Lab Results: I have reviewed the past 24 hour labs
[2016-07-01] MEDS: DEXTROSE 5% NACL 0.9% 1,000 ML IV SCH ×2 (20:20→21:47)
[2016-07-01] MEDS: GABAPENTIN 100 MG CAPSULE PO SCH (21:44)
[2016-07-01] MEDS: traZODone 50 MG TABLET PO PRN (21:44)
[2016-07-02] MEDS: ALBUTEROL/IPRATROPIUM 3 ML NEB RESP TX SCH ×4 (00:56→19:10)
[2016-07-02] MEDS: BUDESONIDE 0.5 MG/2 ML NEB RESP TX SCH ×2 (07:21→19:10)
[2016-07-02] MEDS: DORNASE ALFA 2.5 MG/2.5 ML VIAL RESP TX SCH ×2 (07:51→19:20)
[2016-07-02] MEDS: hydroCHLOROthiazide 12.5 MG CAPSULE PO SCH (08:34)
[2016-07-02] MEDS: POLYVINYL ALCOHOL 1.4% OPH SOLN 15 ML BOTTLE BOTH EYES SCH ×3 (08:34→21:53)
[2016-07-02] MEDS: POLYETHYLENE GLYCOL POWDER 17 GM PACK PO SCH (08:35)
[2016-07-02] MEDS: methylPREDNISolone 4 MG TABLET PO SCH (08:35)
[2016-07-02] MEDS: MAGNESIUM CHLORIDE 64 MG TABLET PO SCH ×2 (08:35→20:27)
[2016-07-02] MEDS: BACLOFEN 10 MG TABLET PO SCH ×2 (08:35→20:27)
[2016-07-02] MEDS: DILTIAZEM CD 240 MG CAPSULE PO SCH (08:35)
[2016-07-02] MEDS: DESITIN 4OZ/NYSTATIN 15 GRAM MIXTURE PASTE TOP SCH ×2 (08:35→20:31)
[2016-07-02] MEDS: PANTOPRAZOLE 40 MG VIAL IV SCH ×2 (08:35→21:40)
[2016-07-02 09:14] LABS: Basophils % 0.1 % (0.0-0.8); Eosinophils # 0.1 10*3/uL (0.0-0.87); Eosinophils % 0.7 % (0.00-10.9); Hematocrit 29.6 VOL% (35.7-47.0); Hemoglobin 9.6 GM/DL (12.0-16.0); Immature Granulocytes % 0.7 %; Immature Granulocytes Absolute 0.12 #; Lymphocytes # 2.6 10*3/uL (1.4-4.0); Lymphocytes % 14.5 % (21.3-54.2); Mean Corpuscular HGB Conc 32.4 GM/DL (32-36); Mean Corpuscular Hemoglobin 31 PG (27-34); Mean Corpuscular Volume 94.3 FL (87-102); Mean Platelet Volume 9.2 FL (9.6-12.0); Monocytes # 1.2 10*3/uL (0.11-0.8); Neutrophils # 13.5 10*3/uL (1.4-7.4); Platelet Count 256 T/CUMM (130-400); Red Blood Count 3.14 MC/CUMM (3.8-5.5); Red Cell Distribution Width 15.7 % (9.3-17.3); White Blood Count 17.5 T/CUMM (4-12)
[2016-07-02 09:55] LABS: Calcium 8.2 MG/DL (8.5-10.1)
[2016-07-02] MEDS: FLUCONAZOLE INJ 100 MG in IV BAG 1 EACH IV SCH (10:15)
--- NOTE | 2016-07-02 10:37 | Pulmonology Progress Note ---
Pulmonary - PN: Subj Interval history: This 80-year-old white female who we saw in initial pulmonary consultation on 06/18/2016. This patient had been transferred here from [facility] in [place], [place]. She had been short of breath and hypoxemic. At the time of our initial consultation, our impressions were: 1. Acute right lower lung pneumonia probably improving 2. Possible aspiration secondary to nausea and vomiting 3. Possible dilated stomach. Intractable nausea and vomiting 4. Acute on chronic renal failure 5. Chronic anticoagulation. 6. History of chronic pain 7. High blood pressure 8. See past history 9. Hypokalemia 06/19/2016. Today's x-ray shows cardiomegaly and a resolving right lower lung infiltrate. Patient has increased interstitial markings in both upper lungs and in both bases. There are no positive cultures. Patient says she is breathing better and she is definitely on a lot less distress. White blood cell count was 13,900 with 91 segs. H&H is dropped to 10.5/32.4. Sodium is 144 potassium remains low at 3.0 on replacement protocol. Creatinine which was 1.6 at admission has now gone to 4.20 with a BUN of 9 I have come take in the liberty of consulting renal. D5 normal saline at 75 cc/h was started last night by me. INR is 3.2. I am holding Coumadin. I have continued Lovenox 40 mg once a day but we may need to stop this. Doppler venograms of the lower extremities have shown no evidence of deep venous thrombophlebitis. ABGs 06/18/2016. FiO2 40%. PH 7.51, PCO2 58.8, PO2 51.5. Bicarb 43.6 06/20/2016. Today's x-ray shows resolving right lower lung infiltrate and a resolving residual left lower lung infiltrate patient stools are positive for C. difficile. There are no positive cultures from the sputum's. Patient has stools which were positive for blood. Patient's Lovenox is being held. She has been off of Coumadin for several days. INR is now 5.7 have ordered 2 units of fresh frozen plasma. ABGs on FiO2 of 50% shows a pH 7.43, PCO2 of 57.3, PO2 is 69.0 and a bicarb of 35.3. Potassium is up to 3.2. Creatinine remains elevated 4.5 with a BUN of 141. White blood cell count is elevated at 16,800 with 90.6 segs. H&H is dropped to 9.4/27.6 and platelet count is 247,000. Natruretic peptide is 26. 06/21/2016. Patient's breathing seems much better today. Her diarrhea is nearly resolved. INR is dropped from 5.7-4.8. I am going to transfuse her with 2 units of fresh frozen plasma. Potassium is 3.3. Patient is on a replacement protocol. White count is 18,500 with 86 segs. H&H is 9.1/26.4. Platelets are 278,000. Chest x-ray will be repeated tomorrow. Creatinine has dropped from 4.50-2.20 with a BUN of 102. 06/22/2016. The patient has been moved to intensive care this morning secondary to severe anemia with a hematocrit of 14.6. Melena stool noted by floor nurse this morning. She is to be transfused 4 units of packed red blood cells. She is also supposed to get 1 more unit of fresh frozen plasma. Patient has not been on her Plavix. She has already received 4 units of fresh frozen plasma over the past 2 days. INR today is 3.8. Certainly, her respiratory status has been affected secondary to her severe anemia. She is remaining on 50% facemask and is maintaining her oxygen saturations. Her known right lower lung infiltrate is improving slowly. 06/25/2016. The patient remains in intensive care. Since admission, the patient has been transfused 4 units of blood and 5 units of fresh frozen plasma. H&H today is 9.2/27.4. CT of the chest done 06/23/16 showed bronchial calcification and bronchiectasis of both lungs most prominent extending into the left lower lung and and there was left lower lung airspace density. Small amount of similar changes were seen on the right. Many of the bronchi were partially occupied by mucosal density. The patient is stable enough to proceed with FOB, so this will be scheduled for tomorrow morning at 0800 at bedside. 06/26/2016. This patient was evaluated with fiberoptic bronchoscopy today. She has a tremendous amount of retained secretions. There was bilateral erosive friable bronchitis that looked like it was probably related to chronic infection and possibly related to aspiration. Specimens were sent for cytology , bacterial, AFB and fungal studies. Today's chest x-ray shot as a right lateral oblique. There is residual infiltrate and mild atelectasis in the right lower lung and there is residual infiltrate in the left lower lung. The trachea and mainstem bronchi are calcified. There are no positive cultures. Creatinine has dropped to 1.2 with a BUN of 51 and normal electrolytes. White blood cell count remains elevated at 19,500 with 79.5 segs 8.6 lymphs and 7.8 monocytes. INR is 1.1. H&H is 9.0/26.8. Patient has stabilized since transfusion given 06/22/2016. Patient is definitely stronger today. Solu- Medrol was changed to methylprednisolone 4 mg daily for 5 days. I really do not think this is enough and I have increased to 12 mg daily we may need to go back Solu-Medrol. 06/27/16. The patient underwent FOB yesterday. Lavage gram stain showed few gram positive cocci, few gram positive rods, moderate fungal elements, and moderate white blood cells. Culture is pending. There was no AFB seen on smears and culture is pending. There were few fungal elements seen on fungal smear. That culture is, of course, pending as well. She states that she is feeling better today. She is more easily able to mobilize her secretions, but continues to have LAW congestion. We will start Pulmozyme BID. She is central line replacement today. Medications have been reviewed. We started Pulmozyme today. Labs have been reviewed. White count is 16,000 with 74.6% segs; H&H 9.0/26.7; PLT count 182,000; creatinine has improved to 1.00, BUN 38, electrolytes are normal 06/28/2016. Patient's bronchoscopy specimens have shown only yeast. We will treat this with Diflucan. Patient had a colon infection with C. difficile. We will repeat the stools. I think this is resolved and I am just continuing her Flagyl and her p.o. vancomycin. (note the previous stenosis was a dragon error. The sentence should read, I think this is resolved and I am discontinuing her Flagyl and her p.o. vancomycin.) Patient had a pneumonia at the time of admission and this was treated with cefepime which I will discontinue today. Patient's had positive stools and GI is evaluating her and consider an scopes. I think she is stable enough from a pulmonary standpoint to have scopes and sedation. This patient had renal failure and her creatinine now is 0.90 with a BUN of 30 and normal electrolytes. She was on chronic anticoagulation at the time of admission. She is off of this. As noted above she had a GI bleed with a massively prolonged INR. Today's INR is 1.0 white blood cell count is fallen to 14,900 with 73.56 13 lymphs and 9 monos. H&H is stable at 9.6/27.7 and platelets are 193,000. This patient was on chronic Coumadin therapy because of a past history of deep venous thrombophlebitis and pulmonary emboli. We will repeat her Doppler venograms as she has been off of anticoagulation for a while and she is been bed ridden. This patient originally came from a intermediate. Her other diagnoses included COPD, hyperlipidemia, chronic kidney disease, chronic pain syndrome, high blood pressure, 06/29/2016. Today's chest x-ray shows cardiomegaly. Infiltrates have resolved. Left costophrenic angle is not seen well. This is a right oblique film. INR is 1.1. Electrolytes are normal. Creatinine is 1.0. H&H is 9.8/28.5. White count is 13,300 and platelets of 221,000. This patient had a history of deep venous thrombophlebitis and pulmonary emboli and she had been on long-term Coumadin at the time of this admission. She is off Coumadin. Doppler venograms done 06/28/2016 showed no evidence of deep venous thrombophlebitis. She has complained of leg cramps. Replacement of magnesium was begun yesterday and mag has increased from 1.3-1.5. Patient is for scopes by GI today. In summary her anticoagulation is now under control, acute renal failure has resolved, pneumonia has resolved, and she looks much better. 07/02/2016. Last chest x-ray was done 06/29/2016 and this showed complete clearance of the patient's previously noted pneumonia. CT scan of the chest was done 06/15/2016. Dr. Rader noted a lot of artifact and could not comment on the pulmonary arteries. There are small bilateral pleural effusions. There are dense coronary artery calcifications and cardiomegaly. Doppler venograms of the lower extremities have been negative. The scope showed esophagitis secondary to candidiasis. Gastroesophageal reflux disease and esophageal stricture. H&H is stable at 9.6/29.6. Platelets 256,000. White count 17,577 segs 14.5 lymphocytes electrolytes are normal creatinine is 1.1 with a BUN of 26. Overall this patient looks much better. Labs been reviewed. Medicines have been reviewed. Exam (Progress Note) - Constitutional Vitals: Period Temp Pulse Resp BP Sys/Maya Pulse Ox Last 24 Hr 97.5 F-98.5 F 65-94 7- 140-177/54-80 87-97 Exam: Face. Symmetrical. Lips and tongue are normal. Neck. Symmetrical. Kyphotic. No mass. No meningismus. Lymphatics. No submandibular cervical supraclavicular or epitrochlear adenopathy. Chest is wheeze free, expiration is prolonged and incomplete; note, previously noted mild tracheal airway wheezes have resolved Heart no gallop Abdomen is nontender and nondistended; bowel sounds are positive 4 Extremities with nothing to suggest acute deep venous thrombophlebitis Psychiatric awake and oriented. Able to give a good history. Neurologic long tract motor function is intact. Cranial nerves are intact. The remainder the physical exam is noncontributory. Plan. 1. 06/28/2016. See my note above. Discontinue antibiotics. Start Diflucan. From pulmonary standpoint GI procedures can be started. Doppler venograms. 2. 06/28/2016. Follow-up tests to been ordered. 3. 06/29/2016. See today's note above. Patient's markedly improved from my standpoint and the main thing left to do is to find out additional information about her recent acute GI bleed. 4. 07/02/2016. See today's note above Results - Labs Exam (Progress Note) - Constitutional Vitals: Period Temp Pulse Resp BP Sys/Maya Pulse Ox Last 24 Hr 97.2 F-98.6 F 60-78 134-156/61-94 85-98 Results - Labs CBC & BMP: 07/02/16 09:00 07/02/16 09:07
[2016-07-02] MEDS ORDERED: FUROSEMIDE 40 MG/4 ML VIAL IV ONE (11:00)
--- NOTE | 2016-07-02 11:05 | Gastrointestinal Progress Note ---
<Maria Elena Shelton - Last Filed: 07/02/16 11:03> Assessment and Plan (1) Nausea Status: Acute Assessment and plan: 06/28-No c/o nausea, overt bleeding. Resp status improved however continued episodes of SOB. Will plan to check back on Saturday if still inpatient and if improved can proceed with EGD at that time. Plan and addendum to follow by Dr Lima. 06/26-No c/o nausea. Tolerating diet at present time. Hgb stable at 9. Continue to monitor and plan EGD when pt resp status is improved. Plan and addendum to follow by DR Lima. 06/25-no complaints of nausea, overt bleeding, or abdominal pain. FOB tomorrow morning. Will consider tentative upper endoscopy prior to discharge if respiratory status continues to improve. Plan an addendum to followed by Dr. Lima. 06/22-no complaints of nausea, denies abdominal pain. Findings of profound anemia this morning with hemoglobin 4.8, INR 3.8. Reports of melena stools. To be transfused 4 units of packed cells as well as 2 more units of fresh frozen plasma. Plan an addendum to followed by Dr. Lima. 06/21-nausea improved without any vomiting. No abdominal pain. Found to have Clostridium difficile and oral vancomycin started. Tolerating small amounts of diet. Plan an addendum to follow by Dr. Lima. 06/19-Nausea continues, better controlled at present. Noted to have leukocytosis today, however also on steroid therapy. Afebrile. Plans and addendum to follow by Dr Lima. 06/18-Sudden onset of nausea, intractable vomiting with mid abdominal pain. No coffee ground/hematemesis. KUB shows gaseous distention of stomach, nondistended bowel. Last endoscopy years prior in [employer], unable to recall findings. Will continue to monitor and plan tentative EGD when respiratory status improves if symptoms persist. Plan and addendum to follow by DR Lima. Current Visit: Yes (2) Dysphagia Status: Acute Assessment and plan: 07/02-Improved post EGD on Saturday with findings noted of radha/GERD. Tolerating diet. Plan and addendum to follow by DR Lima. Current Visit: Yes Gastroenterology - PN: Subj Interval history: CC: Dysphagia Pt is seen awake and alert sitting up in chair. States she is feeling better today. She is still having some discomfort with swallowing however on EGD Saturday she was noted to have some erosive esophagitis and radha. She is swallowing better since dilation. Overall she states she feels she is doing better from an eating standpoint. Abdomen is soft, nontender. ROS: Denies SOB or chest pain Exam (Progress Note) - Constitutional Vitals: Period Temp Pulse Resp BP Sys/Maya Pulse Ox Last 24 Hr 97.2 F-98.6 F 60-78 17-22 134-156/61-94 85-98 General appearance: normal weight, no acute distress - Head Head exam: Present: normal inspection, normocephalic - Eye Eye exam: Present: other (lids and conjunctiva unremarkable). Absent: scleral icterus - ENT ENT exam: Present: normal exam, normal oropharynx - Neck Neck exam: Present: normal inspection - Respiratory Respiratory exam: Present: clear to auscultation bilaterally. Absent: rales, rhonchi, wheezes - Cardiovascular Cardiovascular exam: Present: regular rate and rhythm. Absent: diastolic murmur , JVD, systolic murmur - GI/Abdominal GI/Abdominal exam: Present: normal bowel sounds, soft. Absent: ascites, distended, mass, organomegaly, tenderness - Extremities Exam Extremities exam: Present: normal inspection, full ROM - Back Exam Back exam: Present: normal inspection - Neurological Exam Neurological exam: Present: alert, oriented X3 - Psychiatric Psychiatric exam: Present: normal affect, normal mood - Skin Skin exam: Present: normal color, warm, dry Results - Labs CBC & BMP: 07/02/16 09:00 07/02/16 09:07 Lab Results: I have reviewed the past 24 hour labs <Harish Lima - Last Filed: 07/02/16 23:22> Exam (Progress Note) - Constitutional Vitals: Period Temp Pulse Resp BP Sys/Maya Pulse Ox Last 24 Hr 96.4 F-99.2 F 74-88 16-20 120-155/53-78 89-100 Results - Labs CBC & BMP: 07/02/16 09:00 07/02/16 09:07
--- NOTE | 2016-07-02 11:21 | XRay Report ---
Portable chest Date: 07/02/2016 Clinical history: Shortness of breath Comparison: 06/29/2016 Technique: Portable AP sitting chest Findings: Stable cardiomegaly with interval removal of right IJ CVP line. Progressive dense pleural and parenchymal findings at the left lung base. Residual diffuse parenchymal findings in the lungs which also appears generally increased at the right lung base. Stable mediastinum and osseous structures. Old healed right clavicular fracture. Impression: Bibasilar atelectasis/infiltration/edema with enlarging small left pleural effusion. PROCEDURE INTERPRETED AT [facility] DEPARTMENT OF RADIOLOGY Final Report Signed by: Dr. Alethea Douglas
--- NOTE | 2016-07-02 11:34 | XRay Report ---
Exam: XR abdomen 1V Date: 07/02/2016 10:29 AM Comparison: 06/17/2016 Indication: Generalized abdominal pain Technique:[Portable supine abdomen Findings: Decreased gaseous distention of the stomach with gas in the colon which is nondistended. Prior cholecystectomy. Arterial calcifications with degenerative changes.] Impression: Reduced gaseous distention of the stomach. Increased gas in the nondistended colon. Prior cholecystectomy with diffuse arterial calcifications. PROCEDURE INTERPRETED AT [facility] DEPARTMENT OF RADIOLOGY Final Report Signed by: Dr. Alethea Douglas
--- NOTE | 2016-07-02 12:24 | Hospitalist Progress Note ---
Assessment and Plan - Time spent with patient Time spent with patient: Greater than 30 minutes (1) Acute blood loss anemia Status: Acute Assessment and plan: Stable. Defer to GI for EGD. Current Visit: Yes (2) Acute exacerbation of chronic obstructive airways disease Status: Acute Assessment and plan: Continue current management. Current Visit: Yes (3) Hypertension Status: Acute Assessment and plan: Stable. Continue antihypertensives. Current Visit: Yes (4) Anticoagulant long-term use Status: Acute Assessment and plan: CT chest reveals presence of clot. She will need resumption of anticoagulation once cleared by GI. Current Visit: Yes (5) History of pulmonary embolism Status: Acute Assessment and plan: Will require resumption of coumadin once cleared by GI. Current Visit: Yes (6) C. difficile colitis Status: Acute Assessment and plan: Resolved. Current Visit: Yes Hospitalist: Subjective Interval history: Complains of abdominal pain. No overnight events. Exam - Constitutional Vitals: Period Temp Pulse Resp BP Sys/Maya Pulse Ox Last 24 Hr 97.2 F-98.6 F 60-84 17-20 134-156/61-94 85-98 General appearance: no acute distress - Head Head exam: Present: normocephalic, atraumatic - Eye Eye exam: Present: EOMI Pupils: Present: LISBET - ENT ENT exam: Present: normal exam - Neck Neck exam: Present: normal inspection - Respiratory Respiratory exam: Present: other (bibasilar crackles). Absent: rhonchi, wheezes - Cardiovascular Cardiovascular exam: Present: regular rate and rhythm. Absent: gallop, rubs, systolic murmur - GI/Abdominal GI/Abdominal exam: Present: normal bowel sounds, soft. Absent: distended, firm , guarding, tenderness, rebound - Extremities Exam Extremities exam: Present: normal inspection. Absent: calf tenderness, edema Results - Labs CBC & BMP: 07/02/16 09:00 07/02/16 09:07 Lab Results: I have reviewed the past 24 hour labs
[2016-07-02] MEDS: DEXTROSE 5% NACL 0.9% 1,000 ML IV SCH (16:37)
[2016-07-02] MEDS: GABAPENTIN 100 MG CAPSULE PO SCH (20:27)
[2016-07-03] MEDS: traZODone 50 MG TABLET PO PRN ×2 (00:13→21:36)
[2016-07-03] MEDS: ALBUTEROL/IPRATROPIUM 3 ML NEB RESP TX SCH ×4 (01:40→20:11)
[2016-07-03] MEDS: DEXTROSE 5% NACL 0.9% 1,000 ML IV SCH ×2 (06:07→21:38)
[2016-07-03] MEDS: BUDESONIDE 0.5 MG/2 ML NEB RESP TX SCH ×2 (07:35→20:11)
[2016-07-03] MEDS ORDERED: FUROSEMIDE 40 MG/4 ML VIAL IV ONE (08:01)
[2016-07-03] MEDS: DORNASE ALFA 2.5 MG/2.5 ML VIAL RESP TX SCH ×2 (08:06→20:23)
[2016-07-03] MEDS: PANTOPRAZOLE 40 MG VIAL IV SCH ×2 (08:33→21:44)
[2016-07-03] MEDS: hydroCHLOROthiazide 12.5 MG CAPSULE PO SCH (08:34)
[2016-07-03] MEDS: BACLOFEN 10 MG TABLET PO SCH ×2 (08:34→20:45)
[2016-07-03] MEDS: DILTIAZEM CD 240 MG CAPSULE PO SCH (08:34)
[2016-07-03] MEDS: MAGNESIUM CHLORIDE 64 MG TABLET PO SCH ×2 (08:34→20:45)
[2016-07-03] MEDS: methylPREDNISolone 4 MG TABLET PO SCH (08:34)
[2016-07-03] MEDS: POLYVINYL ALCOHOL 1.4% OPH SOLN 15 ML BOTTLE BOTH EYES SCH ×3 (08:35→20:47)
[2016-07-03] MEDS: DESITIN 4OZ/NYSTATIN 15 GRAM MIXTURE PASTE TOP SCH ×2 (08:37→20:47)
[2016-07-03] MEDS: POLYETHYLENE GLYCOL POWDER 17 GM PACK PO SCH (08:40)
[2016-07-03] MEDS: FLUCONAZOLE INJ 100 MG in IV BAG 1 EACH IV SCH (08:42)
--- NOTE | 2016-07-03 10:36 | Pulmonology Progress Note ---
Pulmonary - PN: Subj Interval history: Cornell Bailey, ANP-BC, GNP-BC, acting as scribe for Dr. Clay Kingsley This 80-year-old white female who we saw in initial pulmonary consultation on 06/18/2016. This patient had been transferred here from [facility] in [place], [place]. She had been short of breath and hypoxemic. At the time of our initial consultation, our impressions were: 1. Acute right lower lung pneumonia probably improving 2. Possible aspiration secondary to nausea and vomiting 3. Possible dilated stomach. Intractable nausea and vomiting 4. Acute on chronic renal failure 5. Chronic anticoagulation. 6. History of chronic pain 7. High blood pressure 8. See past history 9. Hypokalemia 06/19/2016. Today's x-ray shows cardiomegaly and a resolving right lower lung infiltrate. Patient has increased interstitial markings in both upper lungs and in both bases. There are no positive cultures. Patient says she is breathing better and she is definitely on a lot less distress. White blood cell count was 13,900 with 91 segs. H&H is dropped to 10.5/32.4. Sodium is 144 potassium remains low at 3.0 on replacement protocol. Creatinine which was 1.6 at admission has now gone to 4.20 with a BUN of 9 I have come take in the liberty of consulting renal. D5 normal saline at 75 cc/h was started last night by me. INR is 3.2. I am holding Coumadin. I have continued Lovenox 40 mg once a day but we may need to stop this. Doppler venograms of the lower extremities have shown no evidence of deep venous thrombophlebitis. ABGs 06/18/2016. FiO2 40%. PH 7.51, PCO2 58.8, PO2 51.5. Bicarb 43.6 06/20/2016. Today's x-ray shows resolving right lower lung infiltrate and a resolving residual left lower lung infiltrate patient stools are positive for C. difficile. There are no positive cultures from the sputum's. Patient has stools which were positive for blood. Patient's Lovenox is being held. She has been off of Coumadin for several days. INR is now 5.7 have ordered 2 units of fresh frozen plasma. ABGs on FiO2 of 50% shows a pH 7.43, PCO2 of 57.3, PO2 is 69.0 and a bicarb of 35.3. Potassium is up to 3.2. Creatinine remains elevated 4.5 with a BUN of 141. White blood cell count is elevated at 16,800 with 90.6 segs. H&H is dropped to 9.4/27.6 and platelet count is 247,000. Natruretic peptide is 26. 06/21/2016. Patient's breathing seems much better today. Her diarrhea is nearly resolved. INR is dropped from 5.7-4.8. I am going to transfuse her with 2 units of fresh frozen plasma. Potassium is 3.3. Patient is on a replacement protocol. White count is 18,500 with 86 segs. H&H is 9.1/26.4. Platelets are 278,000. Chest x-ray will be repeated tomorrow. Creatinine has dropped from 4.50-2.20 with a BUN of 102. 06/22/2016. The patient has been moved to intensive care this morning secondary to severe anemia with a hematocrit of 14.6. Melena stool noted by floor nurse this morning. She is to be transfused 4 units of packed red blood cells. She is also supposed to get 1 more unit of fresh frozen plasma. Patient has not been on her Plavix. She has already received 4 units of fresh frozen plasma over the past 2 days. INR today is 3.8. Certainly, her respiratory status has been affected secondary to her severe anemia. She is remaining on 50% facemask and is maintaining her oxygen saturations. Her known right lower lung infiltrate is improving slowly. 06/25/2016. The patient remains in intensive care. Since admission, the patient has been transfused 4 units of blood and 5 units of fresh frozen plasma. H&H today is 9.2/27.4. CT of the chest done 06/23/16 showed bronchial calcification and bronchiectasis of both lungs most prominent extending into the left lower lung and and there was left lower lung airspace density. Small amount of similar changes were seen on the right. Many of the bronchi were partially occupied by mucosal density. The patient is stable enough to proceed with FOB, so this will be scheduled for tomorrow morning at 0800 at bedside. 06/26/2016. This patient was evaluated with fiberoptic bronchoscopy today. She has a tremendous amount of retained secretions. There was bilateral erosive friable bronchitis that looked like it was probably related to chronic infection and possibly related to aspiration. Specimens were sent for cytology , bacterial, AFB and fungal studies. Today's chest x-ray shot as a right lateral oblique. There is residual infiltrate and mild atelectasis in the right lower lung and there is residual infiltrate in the left lower lung. The trachea and mainstem bronchi are calcified. There are no positive cultures. Creatinine has dropped to 1.2 with a BUN of 51 and normal electrolytes. White blood cell count remains elevated at 19,500 with 79.5 segs 8.6 lymphs and 7.8 monocytes. INR is 1.1. H&H is 9.0/26.8. Patient has stabilized since transfusion given 06/22/2016. Patient is definitely stronger today. Solu- Medrol was changed to methylprednisolone 4 mg daily for 5 days. I really do not think this is enough and I have increased to 12 mg daily we may need to go back Solu-Medrol. 06/27/16. The patient underwent FOB yesterday. Lavage gram stain showed few gram positive cocci, few gram positive rods, moderate fungal elements, and moderate white blood cells. Culture is pending. There was no AFB seen on smears and culture is pending. There were few fungal elements seen on fungal smear. That culture is, of course, pending as well. She states that she is feeling better today. She is more easily able to mobilize her secretions, but continues to have LAW congestion. We will start Pulmozyme BID. She is central line replacement today. 06/28/2016. Patient's bronchoscopy specimens have shown only yeast. We will treat this with Diflucan. Patient had a colon infection with C. difficile. We will repeat the stools. I think this is resolved and I am just continuing her Flagyl and her p.o. vancomycin. (note the previous stenosis was a dragon error. The sentence should read, I think this is resolved and I am discontinuing her Flagyl and her p.o. vancomycin.) Patient had a pneumonia at the time of admission and this was treated with cefepime which I will discontinue today. Patient's had positive stools and GI is evaluating her and consider an scopes. I think she is stable enough from a pulmonary standpoint to have scopes and sedation. This patient had renal failure and her creatinine now is 0.90 with a BUN of 30 and normal electrolytes. She was on chronic anticoagulation at the time of admission. She is off of this. As noted above she had a GI bleed with a massively prolonged INR. Today's INR is 1.0 white blood cell count is fallen to 14,900 with 73.56 13 lymphs and 9 monos. H&H is stable at 9.6/27.7 and platelets are 193,000. This patient was on chronic Coumadin therapy because of a past history of deep venous thrombophlebitis and pulmonary emboli. We will repeat her Doppler venograms as she has been off of anticoagulation for a while and she is been bed ridden. This patient originally came from a [facility]. Her other diagnoses included COPD, hyperlipidemia, chronic kidney disease, chronic pain syndrome, high blood pressure, 06/29/2016. Today's chest x-ray shows cardiomegaly. Infiltrates have resolved. Left costophrenic angle is not seen well. This is a right oblique film. INR is 1.1. Electrolytes are normal. Creatinine is 1.0. H&H is 9.8/28.5. White count is 13,300 and platelets of 221,000. This patient had a history of deep venous thrombophlebitis and pulmonary emboli and she had been on long-term Coumadin at the time of this admission. She is off Coumadin. Doppler venograms done 06/28/2016 showed no evidence of deep venous thrombophlebitis. She has complained of leg cramps. Replacement of magnesium was begun yesterday and mag has increased from 1.3-1.5. Patient is for scopes by GI today. In summary her anticoagulation is now under control, acute renal failure has resolved, pneumonia has resolved, and she looks much better. 07/02/2016. Last chest x-ray was done 06/29/2016 and this showed complete clearance of the patient's previously noted pneumonia. CT scan of the chest was done 06/15/2016. Dr. Rader noted a lot of artifact and could not comment on the pulmonary arteries. There are small bilateral pleural effusions. There are dense coronary artery calcifications and cardiomegaly. Doppler venograms of the lower extremities have been negative. The scope showed esophagitis secondary to candidiasis. Gastroesophageal reflux disease and esophageal stricture. H&H is stable at 9.6/29.6. Platelets 256,000. White count 17,577 segs 14.5 lymphocytes electrolytes are normal creatinine is 1.1 with a BUN of 26. Overall this patient looks much better. 07/03/2016. Patient is doing reasonably well this morning. Her only complaint is of abdominal pain. Abdominal x-ray done yesterday showed reduced gaseous distention of the stomach with increased gas in a nondistended colon. We will obtain a portable KUB this morning. She states her last bowel movement was last night and was "small". Her last magnesium check was on 06/29/2016 and was low at 1.5. She has a CBC and BMP/mag today, but thus far this has not been collected. She has been continued on methylprednisolone 12 mg daily. Her respiratory status has markedly improved, so we have decreased this to 4 mg daily. Medications have been reviewed. Labs have been reviewed. Today's labs are pending. Exam (Progress Note) - Constitutional Vitals: Period Temp Pulse Resp BP Sys/Maya Pulse Ox Last 24 Hr 96.4 F-99.2 F 68-88 16-20 120-176/53-78 87-100 Exam: Chest is wheeze free, expiration is prolonged and incomplete; note, previously noted mild tracheal airway wheezes have resolved Heart no gallop Abdomen is nontender and nondistended; bowel sounds are positive 4 Extremities with nothing to suggest acute deep venous thrombophlebitis Psychiatric awake and oriented Neurologic long tract motor function is intact Plan: Portable KUB today. Follow-up CBC, BMP, and magnesium levels when available. Continue present pulmonary medications with the decrease in methylprednisolone to 4 mg daily. See orders. Results - Labs CBC & BMP: 07/02/16 09:00 07/02/16 09:07
--- NOTE | 2016-07-03 11:18 | XRay Report ---
XR KUB Indication: Generalized abdominal pain Comparison: Abdominal x-ray dated July 02, 2016 Technique: Single frontal view of the abdomen Findings: Nonspecific bowel gas pattern. Surgical clips within the right upper quadrant of the abdomen. Osseous structures appear unchanged. IMPRESSION: No acute interval change. PROCEDURE INTERPRETED AT [facility] DEPARTMENT OF RADIOLOGY Final Report Signed by: Dr Hermelindo Acuña
[2016-07-03 12:05] LABS: Basophils % 0.1 % (0.0-0.8); Eosinophils # 0.1 10*3/uL (0.0-0.87); Eosinophils % 0.8 % (0.00-10.9); Hemoglobin 9.8 GM/DL (12.0-16.0); Immature Granulocytes % 0.6 %; Lymphocytes # 1.6 10*3/uL (1.4-4.0); Lymphocytes % 10.1 % (21.3-54.2); Mean Corpuscular HGB Conc 32.7 GM/DL (32-36); Mean Corpuscular Hemoglobin 31 PG (27-34); Mean Corpuscular Volume 94.9 FL (87-102); Mean Platelet Volume 9.7 FL (9.6-12.0); Monocytes % 6.4 % (1.7-12.7); Neutrophils # 13.2 10*3/uL (1.4-7.4); Platelet Count 257 T/CUMM (130-400); Red Blood Count 3.16 MC/CUMM (3.8-5.5); Red Cell Distribution Width 15.6 % (9.3-17.3); White Blood Count 16.1 T/CUMM (4-12)
[2016-07-03 12:31] LABS: Calcium 8.3 MG/DL (8.5-10.1); Magnesium 1.5 MG/DL (1.8-2.4); Potassium 3.9 MMOL/L (3.5-5.1)
--- NOTE | 2016-07-03 13:25 | Hospitalist Progress Note ---
Assessment and Plan - Time spent with patient Time spent with patient: Greater than 30 minutes (1) Acute blood loss anemia Status: Acute Assessment and plan: Gastroenterology was contacted regarding her previous acute blood loss anemia and has cleared the patient for reinitiating coumadin. Current Visit: Yes (2) Acute exacerbation of chronic obstructive airways disease Status: Acute Assessment and plan: Continue current management. Current Visit: Yes (3) Hypertension Status: Acute Assessment and plan: Stable. Continue antihypertensives. Current Visit: Yes (4) Anticoagulant long-term use Status: Acute Assessment and plan: Continue coumadin and lovenox. Current Visit: Yes (5) History of pulmonary embolism Status: Acute Assessment and plan: Will reinitiate Coumadin and bridge with Lovenox. Current Visit: Yes (6) C. difficile colitis Status: Acute Assessment and plan: Resolved. Current Visit: Yes Hospitalist: Subjective Interval history: State she feels better but is still weak. No overnight events. Exam - Constitutional Vitals: Period Temp Pulse Resp BP Sys/Maya Pulse Ox Last 24 Hr 96.4 F-98.5 F 68-101 16-22 135-176/53-83 87-100 General appearance: normal weight, no acute distress - Head Head exam: Present: normocephalic, atraumatic - Eye Eye exam: Present: EOMI Pupils: Present: LISBET - ENT ENT exam: Present: normal exam - Neck Neck exam: Present: normal inspection - Respiratory Respiratory exam: Present: clear to auscultation bilaterally. Absent: rhonchi, wheezes - Cardiovascular Cardiovascular exam: Present: regular rate and rhythm. Absent: gallop, rubs, systolic murmur - GI/Abdominal GI/Abdominal exam: Present: normal bowel sounds, soft. Absent: distended, firm , guarding, tenderness, rebound - Extremities Exam Extremities exam: Present: normal inspection. Absent: calf tenderness, edema Results - Labs CBC & BMP: 07/03/16 12:02 07/03/16 12:02 Lab Results: I have reviewed the past 24 hour labs
[2016-07-03] MEDS: ENOXAPARIN 100 MG/ML SYRINGE SUBCUT SCH (14:30)
[2016-07-03] MEDS: CLOPIDOGREL 75 MG TABLET PO SCH (14:38)
--- NOTE | 2016-07-03 16:46 | Case Mgmt Physician Query Form ---
LONG STAY PHYSICIAN RECERTIFICATION *This form is to be completed for all Medicare patients before they reach day 20 of their hospitalization. Please complete each section as appropriate.* I certify that hospitalization, and continued hospitalization, for this patient is medically necessary as follows: 1) Reasons of either continued hospitalization of the patient for medical treatment or medically required diagnostic study or special or unusual services for cost outlier cases are as follows: 2) Estimated time patient will need to remain in hospital: 3) Plan for Post Hospital Care: ( ) Home with Primary Care Follow up ( ) Home with Home Health Follow up (x ) LTACH/ Acute Care Rehab/ SNF/Correction ( ) Other: If you have any questions, please contact me. Thank you, Renetta Tavares R.N. Case Management P: [phone] F: [phone] E: [email or web address] If you have any questions, please contact me. Thank you, Yanet CHAVEZ Email:[email or web address]
[2016-07-03] MEDS: NYSTATIN 500,000 UNIT/5 ML UDCUP SWISH/SWAL SCH ×2 (17:11→20:45)
[2016-07-03] MEDS ORDERED: WARFARIN 3 MG TABLET PO SCH (18:00)
[2016-07-03] MEDS: GABAPENTIN 100 MG CAPSULE PO SCH (20:45)
[2016-07-04] MEDS: ALBUTEROL/IPRATROPIUM 3 ML NEB RESP TX SCH ×2 (00:53→07:37)
[2016-07-04] MEDS: ENOXAPARIN 100 MG/ML SYRINGE SUBCUT SCH (05:54)
[2016-07-04 06:23] LABS: Basophils % 0.1 % (0.0-0.8); Eosinophils % 0.4 % (0.00-10.9); Hematocrit 28.1 VOL% (35.7-47.0); Hemoglobin 9.1 GM/DL (12.0-16.0); Immature Granulocytes % 0.6 %; Immature Granulocytes Absolute 0.06 #; Lymphocytes # 1.7 10*3/uL (1.4-4.0); Lymphocytes % 15.8 % (21.3-54.2); Mean Corpuscular HGB Conc 32.4 GM/DL (32-36); Mean Corpuscular Hemoglobin 30 PG (27-34); Mean Platelet Volume 9.3 FL (9.6-12.0); Monocytes # 0.9 10*3/uL (0.11-0.8); Monocytes % 8.1 % (1.7-12.7); Neutrophils # 7.9 10*3/uL (1.4-7.4); Platelet Count 231 T/CUMM (130-400); Red Blood Count 3.02 MC/CUMM (3.8-5.5); Red Cell Distribution Width 15.2 % (9.3-17.3); White Blood Count 10.6 T/CUMM (4-12)
[2016-07-04 06:57] LABS: Osmolality,Calculated 288.1 MOS/KG (273-304)
[2016-07-04] MEDS: DORNASE ALFA 2.5 MG/2.5 ML VIAL RESP TX SCH (07:37)
[2016-07-04] MEDS: BUDESONIDE 0.5 MG/2 ML NEB RESP TX SCH (07:37)
[2016-07-04] MEDS ORDERED: FUROSEMIDE 40 MG/4 ML VIAL IV ONE (08:31)
[2016-07-04] MEDS ORDERED: methylPREDNISolone 4 MG TABLET PO SCH (09:00)
--- NOTE | 2016-07-04 09:24 | Discharge Summary ---
Hospital Course - Hospital Course Hospital Course: Ms. Hoang was admitted for evaluation and management of acute exacerbation of chronic obstructive disease and pneumonia. She was initiated on IV corticosteroids, empiric antibiotics and inhaled bronchodilators. Patient developed sudden onset of nausea and intractable vomiting. GI was consulted and recommended conservative management at this time. Patient however then developed melena and acute blood loss anemia. Patient had 3+ positive stools. Anemia at this level was 4.8 and she was transferred to the ICU for closer observation and transfusion. While in the intensive care unit she developed acute kidney injury and C. difficile colitis and was administered full course of antibiotics by mouth. Her acute kidney injury resolved with appropriate treatment and consultation by nephrology. Once more stable the patient was transferred to the floor where she continued treatment of her pneumonia. She had no recurrence of GI bleeding. Her nausea improved. Patient had an EGD performed by GI which revealed esophageal candidiasis and a stricture which was dilated. Patient received full treatment for esophageal candidiasis. CT of her chest with pulmonary embolism protocol to evaluate for the need for anticoagulation was performed which revealed residual clots. GI cleared the patient for continuation of warfarin. By discharge she had met maximum benefit of hospitalization. I spent 47 minutes coordinating this discharge. - Time spent with patient Time with patient DS: Greater than 30 minutes Diagnosis - Discharge Diagnosis (1) Acute blood loss anemia Status: Acute (2) Acute exacerbation of chronic obstructive airways disease Status: Acute (3) Hypertension Status: Acute (4) Anticoagulant long-term use Status: Acute (5) History of pulmonary embolism Status: Acute (6) C. difficile colitis Status: Acute Discharge Plan - Discharge Data Disposition: Disch To Home/Self Care Condition at Discharge: Stable Discharge Diet: advance to your usual diet Activity: resume usual activities as tolerated - Discharge Medications New Enoxaparin [Lovenox] 100 mg SUBCUT Q12H syringe Budesonide Neb [Pulmicort Respules] 0.5 mg RESP TX RT BID methylPREDNISolone TAB [Medrol] 4 mg PO DAILY tablet Continue Acetaminophen Tab [Tylenol Tab] 1,000 mg PO Q8HR PRN MDD 3GM/24HRS PRN Reason: Fever, Headache, Mild Pain Baclofen 10 mg PO BID clonazePAM [Clonazepam] 0.5 mg PO BID Clopidogrel [Plavix] 75 mg PO DAILY Dimenhydrinate Solution 1 ml IJ Q4H PRN PRN Reason: Nausea/Vomiting dimenhyDRINATE [Dramamine Chew Tab] 50 mg PO Q4H PRN PRN Reason: Nausea/Vomiting Docusate Sodium 100 mg PO BID Gabapentin 100 mg PO 2100 guaiFENesin [Cough Syrup] 100 mg PO QID PRN PRN Reason: Cough Losartan/Hydrochlorothiazide [Losartan-Hctz 100-25 mg Tab] 1 each PO 0900 Mirtazapine 15 mg PO QOTHER DAY Omeprazole [Prilosec] 20 mg PO DAILY Polyethylene Glycol Powder [Miralax] 8.5 gm PO 0900 Polyvinyl Alcohol 1.4% Oph Amber [Artificial Tears Oph Soln] 1 drop BOTH EYES TID Pravastatin [Pravachol] 40 mg PO DAILY Tiotropium Inhalation [Spiriva Handihaler] 18 mcg INH DAILY Warfarin Sodium 3 mg PO 2100 Albuterol/Ipratropium Neb [Duoneb] 3 ml RESP TX RT Q6H PRN PRN Reason: Shortness Of Breath/Wheezing Phenol 1.4% Throat [place] [Chloraseptic [place]] 2 - 3 spray PO Q2H PRN PRN Reason: Sore Throat Cholecalciferol (Vitamin D3) [Vitamin D3] 2,000 unit PO 0900 dilTIAZem HCl [Diltiazem 24Hr ER] 240 mg PO 0900 diphenhydrAMINE HCl [diphenhydrAMINE Cap] 50 mg PO Q6H PRN PRN Reason: Pruritis Hydrocodone Bitartrate [Zohydro ER] 30 mg PO 0600,1800 Mirtazapine [Remeron] 30 mg PO QOTHER DAY Potassium Chloride Cap/Tab [K Dur] 20 meq PO DAILY - Follow Up or Referral - Forms/Instructions Exam - Constitutional Vitals: Period Temp Pulse Resp BP Sys/Maya Pulse Ox Last 24 Hr 97.5 F-97.9 F 70-101 18-22 139-157/66-83 89-98 General appearance: no acute distress, over weight - Head Head exam: Present: normal inspection, normocephalic, atraumatic - Eye Eye exam: Present: EOMI Pupils: Present: LISBET - ENT ENT exam: Present: normal exam - Neck Neck exam: Present: normal inspection - Respiratory Respiratory exam: Present: clear to auscultation bilaterally. Absent: accessory muscle use, rales, rhonchi, stridor, wheezes - Cardiovascular Cardiovascular exam: Present: regular rate and rhythm. Absent: bradycardia, irregular rhythm, systolic murmur - GI/Abdominal GI/Abdominal exam: Present: normal bowel sounds. Absent: ascites, distended, hypoactive bowel sounds, tenderness - Extremities Exam Extremities exam: Present: normal inspection. Absent: edema Discharge Results Procedures and tests throughout hospitalization: Pending Orders 06/19/16 Occult Blood, Stool Routine 06/26/16 AFB Culture/Smears Stat Fungal Culture w/ Prep Stat Labs on day of discharge: Labs from last 24 hours 07/04/16 07/04/16 07/03/16 05:07 05:07 12:02 WBC 10.6 D RBC 3.02 L Hgb 9.1 L Hct 28.1 L MCV 93.0 MCH 30 MCHC 32.4 RDW 15.2 Plt Count 231 MPV 9.3 L Neut % (Auto) 75.0 H Lymph % (Auto) 15.8 L Ray % (Auto) 8.1 Eos % (Auto) 0.4 Baso % (Auto) 0.1 Neut # (Auto) 7.9 H Lymph # (Auto) 1.7 Ray # (Auto) 0.9 H Eos # (Auto) 0.0 Baso # (Auto) 0.0 Immature Gran % 0.6 Nucleated RBC % 0.0 Immature Gran # 0.06 Nucleated RBCs # 0.00 Sodium 142 143 Potassium 4.0 3.9 Chloride 103 104 Carbon Dioxide 31 28 Anion Gap 12.0 14.9 BUN 30 H 33 H Creatinine 1.20 H 1.30 H GFR Calculation 50 45 BUN/Creatinine Ratio 25.00 H 25.00 H Glucose 102 110 H Calculated Osmolality 288.1 292.0 Calcium 8.0 L 8.3 L Magnesium 1.5 L 07/03/16 12:02 WBC 16.1 H RBC 3.16 L Hgb 9.8 L Hct 30.0 L MCV 94.9 MCH 31 MCHC 32.7 RDW 15.6 Plt Count 257 MPV 9.7 Neut % (Auto) 82.0 H Lymph % (Auto) 10.1 L Ray % (Auto) 6.4 Eos % (Auto) 0.8 Baso % (Auto) 0.1 Neut # (Auto) 13.2 H Lymph # (Auto) 1.6 Ray # (Auto) 1.0 H Eos # (Auto) 0.1 Baso # (Auto) 0.0 Immature Gran % 0.6 Nucleated RBC % 0.0 Immature Gran # 0.10 Nucleated RBCs # 0.00 Sodium Potassium Chloride Carbon Dioxide Anion Gap BUN Creatinine GFR Calculation BUN/Creatinine Ratio Glucose Calculated Osmolality Calcium Magnesium Preliminary micro results at discharge 06/26/16 Unknown Fungal Culture - Preliminary Bronchial Pedro Lavage Yeast 06/26/16 Unknown Mycobacterial Culture - Preliminary Bronchial Pedro Lavage No AFB isolated at 1 week DS: Provider Date of admission: 06/15/16 12:24 Primary care physician: . No PCP Attending physician on admission: Blaise Tejeda MD Consults: 06/15/16 13:35 Consult to Pharmacy [CONS] Routine Reason for Pharmacy Consult: Adjust Meds Renal Funct 06/15/16 14:35 Consult to Pastoral Services [CONS] Routine Comment: Pastoral Screen: Request Tile Layer Helper Visit Pastoral Screen Source of Request: Patient 06/18/16 11:12 Consult to Physician [CONS] Routine Comment: Venti mask 40%, SOB Consulting Provider: Clay Kingsley When should Consulting Provider be notified: Now Consult to Specialist Group: Pulmonology Person Notified: angeles Date Notified: 06/18/16 06/18/16 11:13 Consult to Physician [CONS] Routine Comment: Consulting Provider: Harish Lima Person Notified: christopher Date Notified: 06/18/16 Time Notified: 11:25 06/18/16 11:14 Consult to Physician [CONS] Routine Comment: abdnormal KUB, nausea Consulting Provider: Consult to Specialist Group: Gastroenterology When should Consulting Provider be notified: Raimundo 06/19/16 10:23 Consult to Physician [CONS] Routine Comment: Acute renal failure Consulting Provider: Dejon David Jr. Person Notified: ANUSHA Date Notified: 06/19/16 Time Notified: 10:36 06/22/16 13:01 Consult to Physician [CONS] Routine Comment: Consulting Provider: Maxx Galvin Consulting Provider Notified: Renuka Person Notified: YES Date Notified: 06/22/16 Time Notified: 13:02 Consult Notification Comment: CENTRAL LINE PLACEMENT 06/23/16 14:18 Consult to Pharmacy [CONS] Routine Reason for Pharmacy Consult: Dose/Manage Vancomycin Discharging clinician: Alexandra Adkins MD Expected date of discharge: 07/04/16
[2016-07-04] MEDS ORDERED: MAGNESIUM HYDROXIDE SUSP 30 ML UDCUP PO ONE (09:43)
[2016-07-04] MEDS: POLYETHYLENE GLYCOL POWDER 17 GM PACK PO SCH (10:03)
[2016-07-04] MEDS: MAGNESIUM CHLORIDE 64 MG TABLET PO SCH (10:03)
[2016-07-04] MEDS: BACLOFEN 10 MG TABLET PO SCH (10:03)
[2016-07-04] MEDS: hydroCHLOROthiazide 12.5 MG CAPSULE PO SCH (10:03)
[2016-07-04] MEDS: DILTIAZEM CD 240 MG CAPSULE PO SCH (10:03)
[2016-07-04] MEDS: CLOPIDOGREL 75 MG TABLET PO SCH (10:03)
[2016-07-04] MEDS: NYSTATIN 500,000 UNIT/5 ML UDCUP SWISH/SWAL SCH ×2 (10:04→13:37)
[2016-07-04] MEDS: PANTOPRAZOLE 40 MG VIAL IV SCH (10:04)
[2016-07-04] MEDS: DESITIN 4OZ/NYSTATIN 15 GRAM MIXTURE PASTE TOP SCH (10:04)
[2016-07-04] MEDS: POLYVINYL ALCOHOL 1.4% OPH SOLN 15 ML BOTTLE BOTH EYES SCH (10:10)
--- NOTE | 2016-07-04 10:10 | Pulmonology Progress Note ---
Pulmonary - PN: Subj Interval history: This 80-year-old white female who we saw in initial pulmonary consultation on 06/18/2016. This patient had been transferred here from [facility] in [place], [place]. She had been short of breath and hypoxemic. At the time of our initial consultation, our impressions were: 1. Acute right lower lung pneumonia probably improving 2. Possible aspiration secondary to nausea and vomiting 3. Possible dilated stomach. Intractable nausea and vomiting 4. Acute on chronic renal failure 5. Chronic anticoagulation. 6. History of chronic pain 7. High blood pressure 8. See past history 9. Hypokalemia 06/19/2016. Today's x-ray shows cardiomegaly and a resolving right lower lung infiltrate. Patient has increased interstitial markings in both upper lungs and in both bases. There are no positive cultures. Patient says she is breathing better and she is definitely on a lot less distress. White blood cell count was 13,900 with 91 segs. H&H is dropped to 10.5/32.4. Sodium is 144 potassium remains low at 3.0 on replacement protocol. Creatinine which was 1.6 at admission has now gone to 4.20 with a BUN of 9 I have come take in the liberty of consulting renal. D5 normal saline at 75 cc/h was started last night by me. INR is 3.2. I am holding Coumadin. I have continued Lovenox 40 mg once a day but we may need to stop this. Doppler venograms of the lower extremities have shown no evidence of deep venous thrombophlebitis. ABGs 06/18/2016. FiO2 40%. PH 7.51, PCO2 58.8, PO2 51.5. Bicarb 43.6 06/20/2016. Today's x-ray shows resolving right lower lung infiltrate and a resolving residual left lower lung infiltrate patient stools are positive for C. difficile. There are no positive cultures from the sputum's. Patient has stools which were positive for blood. Patient's Lovenox is being held. She has been off of Coumadin for several days. INR is now 5.7 have ordered 2 units of fresh frozen plasma. ABGs on FiO2 of 50% shows a pH 7.43, PCO2 of 57.3, PO2 is 69.0 and a bicarb of 35.3. Potassium is up to 3.2. Creatinine remains elevated 4.5 with a BUN of 141. White blood cell count is elevated at 16,800 with 90.6 segs. H&H is dropped to 9.4/27.6 and platelet count is 247,000. Natruretic peptide is 26. 06/21/2016. Patient's breathing seems much better today. Her diarrhea is nearly resolved. INR is dropped from 5.7-4.8. I am going to transfuse her with 2 units of fresh frozen plasma. Potassium is 3.3. Patient is on a replacement protocol. White count is 18,500 with 86 segs. H&H is 9.1/26.4. Platelets are 278,000. Chest x-ray will be repeated tomorrow. Creatinine has dropped from 4.50-2.20 with a BUN of 102. 06/22/2016. The patient has been moved to intensive care this morning secondary to severe anemia with a hematocrit of 14.6. Melena stool noted by floor nurse this morning. She is to be transfused 4 units of packed red blood cells. She is also supposed to get 1 more unit of fresh frozen plasma. Patient has not been on her Plavix. She has already received 4 units of fresh frozen plasma over the past 2 days. INR today is 3.8. Certainly, her respiratory status has been affected secondary to her severe anemia. She is remaining on 50% facemask and is maintaining her oxygen saturations. Her known right lower lung infiltrate is improving slowly. 06/25/2016. The patient remains in intensive care. Since admission, the patient has been transfused 4 units of blood and 5 units of fresh frozen plasma. H&H today is 9.2/27.4. CT of the chest done 06/23/16 showed bronchial calcification and bronchiectasis of both lungs most prominent extending into the left lower lung and and there was left lower lung airspace density. Small amount of similar changes were seen on the right. Many of the bronchi were partially occupied by mucosal density. The patient is stable enough to proceed with FOB, so this will be scheduled for tomorrow morning at 0800 at bedside. 06/26/2016. This patient was evaluated with fiberoptic bronchoscopy today. She has a tremendous amount of retained secretions. There was bilateral erosive friable bronchitis that looked like it was probably related to chronic infection and possibly related to aspiration. Specimens were sent for cytology , bacterial, AFB and fungal studies. Today's chest x-ray shot as a right lateral oblique. There is residual infiltrate and mild atelectasis in the right lower lung and there is residual infiltrate in the left lower lung. The trachea and mainstem bronchi are calcified. There are no positive cultures. Creatinine has dropped to 1.2 with a BUN of 51 and normal electrolytes. White blood cell count remains elevated at 19,500 with 79.5 segs 8.6 lymphs and 7.8 monocytes. INR is 1.1. H&H is 9.0/26.8. Patient has stabilized since transfusion given 06/22/2016. Patient is definitely stronger today. Solu- Medrol was changed to methylprednisolone 4 mg daily for 5 days. I really do not think this is enough and I have increased to 12 mg daily we may need to go back Solu-Medrol. 06/27/16. The patient underwent FOB yesterday. Lavage gram stain showed few gram positive cocci, few gram positive rods, moderate fungal elements, and moderate white blood cells. Culture is pending. There was no AFB seen on smears and culture is pending. There were few fungal elements seen on fungal smear. That culture is, of course, pending as well. She states that she is feeling better today. She is more easily able to mobilize her secretions, but continues to have LAW congestion. We will start Pulmozyme BID. She is central line replacement today. Medications have been reviewed. We started Pulmozyme today. Labs have been reviewed. White count is 16,000 with 74.6% segs; H&H 9.0/26.7; PLT count 182,000; creatinine has improved to 1.00, BUN 38, electrolytes are normal 06/28/2016. Patient's bronchoscopy specimens have shown only yeast. We will treat this with Diflucan. Patient had a colon infection with C. difficile. We will repeat the stools. I think this is resolved and I am just continuing her Flagyl and her p.o. vancomycin. (note the previous stenosis was a dragon error. The sentence should read, I think this is resolved and I am discontinuing her Flagyl and her p.o. vancomycin.) Patient had a pneumonia at the time of admission and this was treated with cefepime which I will discontinue today. Patient's had positive stools and GI is evaluating her and consider an scopes. I think she is stable enough from a pulmonary standpoint to have scopes and sedation. This patient had renal failure and her creatinine now is 0.90 with a BUN of 30 and normal electrolytes. She was on chronic anticoagulation at the time of admission. She is off of this. As noted above she had a GI bleed with a massively prolonged INR. Today's INR is 1.0 white blood cell count is fallen to 14,900 with 73.56 13 lymphs and 9 monos. H&H is stable at 9.6/27.7 and platelets are 193,000. This patient was on chronic Coumadin therapy because of a past history of deep venous thrombophlebitis and pulmonary emboli. We will repeat her Doppler venograms as she has been off of anticoagulation for a while and she is been bed ridden. This patient originally came from a skilled nursing. Her other diagnoses included COPD, hyperlipidemia, chronic kidney disease, chronic pain syndrome, high blood pressure, 06/29/2016. Today's chest x-ray shows cardiomegaly. Infiltrates have resolved. Left costophrenic angle is not seen well. This is a right oblique film. INR is 1.1. Electrolytes are normal. Creatinine is 1.0. H&H is 9.8/28.5. White count is 13,300 and platelets of 221,000. This patient had a history of deep venous thrombophlebitis and pulmonary emboli and she had been on long-term Coumadin at the time of this admission. She is off Coumadin. Doppler venograms done 06/28/2016 showed no evidence of deep venous thrombophlebitis. She has complained of leg cramps. Replacement of magnesium was begun yesterday and mag has increased from 1.3-1.5. Patient is for scopes by GI today. In summary her anticoagulation is now under control, acute renal failure has resolved, pneumonia has resolved, and she looks much better. 07/02/2016. Last chest x-ray was done 06/29/2016 and this showed complete clearance of the patient's previously noted pneumonia. CT scan of the chest was done 06/15/2016. Dr. Rader noted a lot of artifact and could not comment on the pulmonary arteries. There are small bilateral pleural effusions. There are dense coronary artery calcifications and cardiomegaly. Doppler venograms of the lower extremities have been negative. The scope showed esophagitis secondary to candidiasis. Gastroesophageal reflux disease and esophageal stricture. H&H is stable at 9.6/29.6. Platelets 256,000. White count 17,577 segs 14.5 lymphocytes electrolytes are normal creatinine is 1.1 with a BUN of 26. Overall this patient looks much better. 07/04/2016. Patient's breathing is markedly better. Her chest x-ray is cleared up. KUB looks normal. CBC is stable. Electrolytes are normal. Creatinine is 1.20 with a BUN of 30. There are no new cultures. Patient has no new complaints. She is bright and alert and pleased with her improvement. Patient' s been discharged back to the skilled nursing today. I agree with your plans. I will sign off. Reconsult me if you need me. Labs been reviewed. Medicines have been reviewed. Exam (Progress Note) - Constitutional Vitals: Period Temp Pulse Resp BP Sys/Maya Pulse Ox Last 24 Hr 97.5 F-98.5 F 65-94 7- 140-177/54-80 87-97 Exam: Face. Symmetrical. Lips and tongue are normal. Neck. Symmetrical. Kyphotic. No mass. No meningismus. Lymphatics. No submandibular cervical supraclavicular or epitrochlear adenopathy. Chest is wheeze free, expiration is prolonged and incomplete; note, previously noted mild tracheal airway wheezes have resolved Heart no gallop Abdomen is nontender and nondistended; bowel sounds are positive 4 Extremities with nothing to suggest acute deep venous thrombophlebitis Psychiatric awake and oriented. Able to give a good history. Neurologic long tract motor function is intact. Cranial nerves are intact. The remainder the physical exam is noncontributory. Plan. 1. 06/28/2016. See my note above. Discontinue antibiotics. Start Diflucan. From pulmonary standpoint GI procedures can be started. Doppler venograms. 2. 06/28/2016. Follow-up tests to been ordered. 3. 06/29/2016. See today's note above. Patient's markedly improved from my standpoint and the main thing left to do is to find out additional information about her recent acute GI bleed. 4. 07/02/2016. See today's note above 5. 07/04/2016. See today's note above. I will sign off. Results - Labs Exam (Progress Note) - Constitutional Vitals: Period Temp Pulse Resp BP Sys/Maya Pulse Ox Last 24 Hr 97.5 F-97.9 F 70-101 18-22 139-157/66-83 89-98 Results - Labs CBC & BMP: 07/04/16 05:07 07/04/16 05:07
[2016-07-04 12:59] VITALS: BP 170/73
--- NOTE | 2016-07-05 13:58 | Physician Query Form ---
CLICK EDIT DOCUMENT TO SELECT QUERY ANSWER --> OK --> SIGN Yanet Vail RN Clinical Grinder Set Up Operator Jig W) [phone] (f) [phone] [email or web address] PROVIDERS: Make your selection(s) from the choices in EACH section by typing an "x" and enter comments in the comment section. Please use your independent medical judgment in providing your response. This request does not imply that any particular answer is desired or expected. CLINICAL INDICATORS: (Providers should not edit this section) The below diagnosis was documented in the record, but is not consistently noted in subsequent documentation. Based on documentation of "Pneumonia at right base" "Originally admitted with right lower lobe pneumonia due to aspiration" "Possible aspiration secondary to nausea and vomiting" Treated with IV Vancomycin, IV Cefepime, IV Solu Medrol , and IV Levaquin. Diagnosis: Aspiration Pneumonia Please clarify the following: (x ) The above diagnosis was monitored, evaluated, and/or treated and is a confirmed diagnosis ( ) The above diagnosis was ruled out ( ) The above diagnosis is still a likely, suspected, probable diagnosis ( ) Other, please specify: ( ) Clinically unable to determine COMMENTS: PLEASE ALSO DOCUMENT RESPONSE IN PROGRESS NOTES AND/OR DISCHARGE SUMMARY Use of terms such as suspected, likely, or probable (associated with a specific diagnosis that is being evaluated, monitored, or treated as if it exists) are acceptable and can be restated in the discharge summary if not ruled out. MTDD
== END 2016-07-04 14:19 | DRG 177 ==
LOC: N.ED 10:31 → N.EDINP 12:24 → SUATTDRO 12:24 → N.2E 13:16 → N.ICU 06-22 09:18 → N.2E 06-27 16:35
PROVIDERS: ADMIT Internal Medicine Infectious Disease; ATTEND Internal Medicine